=== PATIENT | male | born 1985 | race Caucasian/White ===

== ENCOUNTER 2018-11-30 11:02 | Emergency (ER) | payer OTHER ==
[~2018-11-30] VITALS: Ht 182.9 cm; Wt 74.8 kg
[~2018-11-30 11:02] MED LIST: HYDR-4226 PO; NAPR-1071 PO; PRD20T PO
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
--- OUTSIDE RECORDS SUMMARY | 2018-11-30 11:09 | XMS REPORT ---
Author Author YANG LANDIS Organization [employer] Address Unknown Phone Unavailable Care Team Providers Care Software Test And Validation Engineer Name Role Phone YANG LANDIS CP Unavailable Allergies, Adverse Reactions, Alerts Substance [...] in joint, shoulder region 719.41 Active Assessment Sore throat J02.9 Active Problem Unspecified episodic mood disorder 296.90 Active Problem Anxiety state, unspecified 300.00 Active Problem Unspecified disorder of the teeth and supporting structures 525.9 Active Medications Medication Code System Code Instructions Start Date End Date Status Dosage PredniSONE [facility] [address]-76 20 MG Orally Once a day May 31, 2015 Jun 05, 2015 1 tablet with food or milk Procedures Procedure Coding System Code Date Office Visit, Est Pt., Level 3 CPT-4 43267 May 31, 2015 HETEROPHILE ANTIBODIES CPT-4 79671 May 31, 2015 Vital Signs Date/Time: May 31, 2015 Temperature 97.8 F Weight 159.8 lbs Height 73 in BMI 21.08 Index Blood Pressure Diastolic 85 mmHg Blood Pressure Systolic 140 mmHg Cardiac Monitoring Heart Rate 72 bpm Results Name Result Date Reference Range Unit Abnormality Flag MONO TEST (IN HOUSE) Summary Purpose [employer] Submission
--- OUTSIDE RECORDS SUMMARY | 2018-11-30 11:09 | XMS REPORT ---
Author Author RADHA GARCÍA [employer] Address Unknown Phone Unavailable Care Team Providers Care Concrete Craftsman Name Role Phone RADHA GARCÍA CP Unavailable Allergies, Adverse Reactions, Alerts Substance [...] in joint, shoulder region 719.41 Active Assessment Encounter for dental examination Z01.20 Active Problem Unspecified episodic mood disorder 296.90 Active Problem Anxiety state, unspecified 300.00 Active Problem Unspecified disorder of the teeth and supporting structures 525.9 Active Medications Medication Code System Code Instructions Start Date End Date Status Dosage Erythromycin [facility] [address]-24 not defined Procedures Procedure Coding System Code Date INTRAORL-PERIAPICAL 1 FILM 34125 CPT-4 D0220 Aug 11, 2015 LTD ORAL EVALUATION - PROBLEM FOCUS CPT-4 D0140 Aug 11, 2015 Vital Signs Date/Time: Aug 11, 2015 Blood Pressure Diastolic 91 mmHg Blood Pressure Systolic 129 mmHg Height 73 in Results No Known Results Summary Purpose [employer] Submission
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
--- OUTSIDE RECORDS SUMMARY | 2018-11-30 11:09 | XMS REPORT ---
Author Author EMMETT LARA Organization [employer] Address Unknown Phone Unavailable Care Team Providers Care Closing Machine Operator Name Role Phone EMMETT LARA Unavailable Allergies No Known Allergies Problems Problem Type Condition ICD-9 Code Onset Dates Condition Status Problem Panic [...] Pain in joint, shoulder region 719.41 Active Problem Unspecified episodic mood disorder 296.90 Active Problem Anxiety state, unspecified 300.00 Active Problem Unspecified disorder of the teeth and supporting structures 525.9 Active Medications No Known Medications Results No Known Results Summary Purpose [employer] Submission
--- OUTSIDE RECORDS SUMMARY | 2018-11-30 11:10 | XMS REPORT ---
Author Author BETH BUSCH Organization [employer] Address Unknown Phone Unavailable Care Team Providers Care Kennel Technician Name Role Phone BETH BUSCH CP Unavailable Allergies No Known Allergies Problems Problem Type Condition Code Onset Dates Condition Status Problem Drug abuse F19.10 Active Problem Alcohol abuse F10.10 Active Problem Stomach cramps R10.9 Active Medications Medication Code System Code Instructions Start Date End Date Status Dosage BusPIRone HCl [facility] [address]-20 10 mg Orally 2 times a day(Must have appt for further refills) February 06, 2016 1 tablet Results No Known Results Summary Purpose [employer] Submission
--- OUTSIDE RECORDS SUMMARY | 2018-11-30 11:10 | XMS REPORT | Continuity of Care Document ---
Author Organization Unknown Address Unknown Allergies Active Description Code Type Severity Reaction Onset Reported/Identified Relationship to Patient Clinical Status Yes Flexeril 5 mg tablet Drug Allergy N/A N/A 01/12/2013 Yes Penicillins [id number] Drug Allergy Mild N/A 08/27/2015 Medications There is no data. Problems Date Dx Coded Attending Type Code Diagnosis Diagnosed By 11/13/2012 525.9 TOOTH PAIN 11/13/2012 525.9 TOOTH PAIN 11/13/2012 525.9 TOOTH PAIN 11/13/2012 525.9 TOOTH PAIN 11/13/2012 525.9 TOOTH PAIN 11/13/2012 525.9 TOOTH PAIN 11/13/2012 IRIS TATUM APRN 525.9 TOOTH PAIN 11/13/2012 IRIS TATUM APRN 525.9 TOOTH PAIN 11/13/2012 IRIS TATUM APRN 525.9 TOOTH PAIN 11/13/2012 RADHA KAPADIA DDS 525.9 TOOTH PAIN 11/13/2012 IRIS TATUM APRN 525.9 TOOTH PAIN 11/13/2012 IRIS TATUM APRN 525.9 TOOTH PAIN 11/13/2012 REBECCA WATTS DDS 525.9 TOOTH PAIN 11/13/2012 [employer] SUPERVISOR, EMMETT 525.9 TOOTH PAIN 11/13/2012 [employer] SUPERVISOR, EMMETT 525.9 TOOTH PAIN 11/13/2012 SKYE POSADA APRN 525.9 TOOTH PAIN 11/13/2012 [employer] SUPERVISOR, EMMETT 525.9 TOOTH PAIN 11/13/2012 [employer] SUPERVISOR, EMMETT 525.9 TOOTH PAIN 11/13/2012 [employer] SUPERVISOR, EMMETT 525.9 TOOTH PAIN 11/13/2012 CATHI RUIZ DO 525.9 TOOTH PAIN 11/13/2012 [employer] SUPERVISOR, EMMETT 525.9 TOOTH PAIN 11/13/2012 DIMITRIS SANTANA, BRIE Rodriguez 525.9 TOOTH PAIN 11/13/2012 EMMETT LARA APRN 525.9 TOOTH PAIN 11/13/2012 EMMETT LARA APRN 525.9 TOOTH PAIN 11/13/2012 EMMETT LARA APRN 525.9 TOOTH PAIN 11/13/2012 CATHI RUIZ DO 525.9 TOOTH PAIN 11/17/2012 300.00 anxiety 11/17/2012 724.2 lower back pain 11/17/2012 300.00 anxiety 11/17/2012 724.2 lower back pain 11/17/2012 300.00 anxiety 11/17/2012 724.2 lower back pain 11/17/2012 300.00 anxiety 11/17/2012 724.2 lower back pain 11/17/2012 300.00 anxiety 11/17/2012 724.2 lower back pain 11/17/2012 IRIS TATUM APRN 300.00 anxiety 11/17/2012 IRIS TATUM APRN 724.2 lower back pain 11/17/2012 IRIS TATUM APRN 300.00 anxiety 11/17/2012 IRIS TATUM APRN 724.2 lower back pain 11/17/2012 IRIS TATUM APRN D 300.00 anxiety 11/17/2012 IRIS TATUM APRN 724.2 lower back pain 11/17/2012 KANG RANDLE, RADHA M 300.00 anxiety 11/17/2012 KANG RANDLE, RADHA M 724.2 lower back pain 11/17/2012 IRIS TATUM APRN 300.00 anxiety 11/17/2012 IRIS TATUM APRN 724.2 lower back pain 11/17/2012 IRIS TATUM APRN 300.00 anxiety 11/17/2012 IRIS TATUM APRN 724.2 lower back pain 11/17/2012 STEFANIE RAZIA, REBECCA N 300.00 anxiety 11/17/2012 STEFANIE MARLAS, REBECCA N 724.2 lower back pain 11/17/2012 RYANNE LARA APRNETTE 300.00 anxiety 11/17/2012 EMMETT LARA APRN 724.2 lower back pain 11/17/2012 RYANNE LARA APRNETTE 300.00 anxiety 11/17/2012 [employer] SUPERVISOR, EMMETT 724.2 lower back pain 11/17/2012 POS[employer] SUPERVISOR, SKYE R 300.00 anxiety 11/17/2012 [employer] SUPERVISOR, SKYE R 724.2 lower back pain 11/17/2012 [employer] SUPERVISOR, EMMETT 300.00 anxiety 11/17/2012 [employer] SUPERVISOR, EMMETT 724.2 lower back pain 11/17/2012 [employer] SUPERVISOR, EMMETT 300.00 anxiety 11/17/2012 [employer] SUPERVISOR, EMMETT 724.2 lower back pain 11/17/2012 [employer] SUPERVISOR, EMMETT 300.00 anxiety 11/17/2012 [employer] SUPERVISOR, EMMETT 724.2 lower back pain 11/17/2012 CATHI RUIZ DO K 300.00 anxiety 11/17/2012 CATHI RUIZ DO K 724.2 lower back pain 11/17/2012 [employer] SUPERVISOR, EMMETT 300.00 anxiety 11/17/2012 [employer] SUPERVISOR, EMMETT 724.2 lower back pain 11/17/2012 DIMITRIS SANTANA, BRIE Rodriguez 300.00 anxiety 11/17/2012 BRIE SHANKS PHD 724.2 lower back pain 11/17/2012 [employer] SUPERVISOR, EMMETT 300.00 anxiety 11/17/2012 [employer] SUPERVISOR, EMMETT 724.2 lower back pain 11/17/2012 [employer] SUPERVISOR, EMMETT 300.00 anxiety 11/17/2012 [employer] SUPERVISOR, EMMETT 724.2 lower back pain 11/17/2012 [employer] SUPERVISOR, EMMETT 300.00 anxiety 11/17/2012 [employer] SUPERVISOR, EMMETT 724.2 lower back pain 11/17/2012 EDE RUIZ DOA K 300.00 anxiety 11/17/2012 EDE RUIZ DOA K 724.2 lower back pain 01/12/2013 300.01 AN PANIC DIS W/O AGORA 01/12/2013 V58.69 MEDICATION HIGH RISK 01/12/2013 300.01 AN PANIC DIS W/O AGORA 01/12/2013 V58.69 MEDICATION HIGH RISK 01/12/2013 IRIS TATUM APRN 300.01 AN PANIC DIS W/O AGORA 01/12/2013 IRIS TATUM APRN V58.69 MEDICATION HIGH RISK 01/12/2013 IRIS TATUM APRN 300.01 AN PANIC DIS W/O AGORA 01/12/2013 IRIS TATUM APRN V58.69 MEDICATION HIGH RISK 01/12/2013 IRIS TATUM APRN 300.01 AN PANIC DIS W/O AGORA 01/12/2013 IRIS TATUM APRN V58.69 MEDICATION HIGH RISK 01/12/2013 RADHA KAPADIA DDS 300.01 AN PANIC DIS W/O AGORA 01/12/2013 KANG RANDLE, RADHA Ramos V58.69 MEDICATION HIGH RISK 01/12/2013 IRIS TATUM APRN 300.01 AN PANIC DIS W/O AGORA 01/12/2013 IRIS TATUM APRN V58.69 MEDICATION HIGH RISK 01/12/2013 IRIS TATUM APRN 300.01 AN PANIC DIS W/O AGORA 01/12/2013 IRIS TATUM APRN V58.69 MEDICATION HIGH RISK 01/12/2013 REBECCA WATTS DDS 300.01 AN PANIC DIS W/O AGORA 01/12/2013 REBECCA WATTS DDS V58.69 MEDICATION HIGH RISK 01/12/2013 EMMETT LARA APRN 300.01 AN PANIC DIS W/O AGORA 01/12/2013 EMMETT LARA APRN V58.69 MEDICATION HIGH RISK 01/12/2013 EMMETT LARA APRN 300.01 AN PANIC DIS W/O AGORA 01/12/2013 EMMETT LARA APRN V58.69 MEDICATION HIGH RISK 01/12/2013 MALCOLM POSADA APRNIA R 300.01 AN PANIC DIS W/O AGORA 01/12/2013 SKYE POSADA APRN R V58.69 MEDICATION HIGH RISK 01/12/2013 EMMETT LARA APRN 300.01 AN PANIC DIS W/O AGORA 01/12/2013 EMMETT LARA APRN V58.69 MEDICATION HIGH RISK 01/12/2013 RYANNE LARA APRNETTE 300.01 AN PANIC DIS W/O AGORA 01/12/2013 EMMETT LARA APRN V58.69 MEDICATION HIGH RISK 01/12/2013 [employer] SUPERVISOR, EMMETT 300.01 AN PANIC DIS W/O AGORA 01/12/2013 [employer] SUPERVISOR, EMMETT V58.69 MEDICATION HIGH RISK 01/12/2013 CATHI RUIZ DO K 300.01 AN PANIC DIS W/O AGORA 01/12/2013 CATHI RUIZ DO V58.69 MEDICATION HIGH RISK 01/12/2013 [employer] SUPERVISOR, EMMETT 300.01 AN PANIC DIS W/O AGORA 01/12/2013 [employer] SUPERVISOR, EMMETT V58.69 MEDICATION HIGH RISK 01/12/2013 DIMITRIS SANTANA, BRIE Rodriguez 300.01 AN PANIC DIS W/O AGORA 01/12/2013 DIMITRIS SANTANA, BRIE Rodriguez V58.69 MEDICATION HIGH RISK 01/12/2013 [employer] SUPERVISOR, EMMETT 300.01 AN PANIC DIS W/O AGORA 01/12/2013 [employer] GENERATION SUPERVISOR, EMMETT V58.69 MEDICATION HIGH RISK 01/12/2013 MARCO [employer] GENERATION SUPERVISOR, EMMETT 300.01 AN PANIC DIS W/O AGORA 01/12/2013 MARCO [employer] GENERATION SUPERVISOR, EMMETT V58.69 MEDICATION HIGH RISK 01/12/2013 MAR[employer] GENERATION SUPERVISOR, EMMETT 300.01 AN PANIC DIS W/O AGORA 01/12/2013 [employer] GENERATION SUPERVISOR, EMMETT V58.69 MEDICATION HIGH RISK 01/12/2013 CATHI RUIZ DO K 300.01 AN PANIC DIS W/O AGORA 01/12/2013 CATHI RUIZ DO V58.69 MEDICATION HIGH RISK 09/21/2013 IRIS TATUM APRN 296.90 MOOD DISORDER NOS 09/21/2013 IRIS TATUM APRN 296.90 MOOD DISORDER NOS 09/21/2013 REBECCA WATTS DDS 296.90 MOOD DISORDER NOS 09/21/2013 [employer] SUPERVISOR, EMMETT 296.90 MOOD DISORDER NOS 09/21/2013 [employer] GENERATION SUPERVISOR, EMMETT 296.90 MOOD DISORDER NOS 09/21/2013 SKYE POSADA APRN 296.90 MOOD DISORDER NOS 09/21/2013 [employer]ATION SUPERVISOR, EMMETT 296.90 MOOD DISORDER NOS 09/21/2013 [employer] GENERATION SUPERVISOR, EMMETT 296.90 MOOD DISORDER NOS 09/21/2013 [employer] GENERATION SUPERVISOR, EMMETT 296.90 MOOD DISORDER NOS 09/21/2013 CATHI RUIZ DO 296.90 MOOD DISORDER NOS 09/21/2013 [employer] GENERATION SUPERVISOR, EMMETT 296.90 MOOD DISORDER NOS 09/21/2013 DIMITRIS SANTANA, BRIE Rodriguez 296.90 MOOD DISORDER NOS 09/21/2013 [employer] SUPERVISOR, EMMETT 296.90 MOOD DISORDER NOS 09/21/2013 [employer] GENERATION SUPERVISOR, EMMETT 296.90 MOOD DISORDER NOS 09/21/2013 [employer] GENERATION SUPERVISOR, EMMETT 296.90 MOOD DISORDER NOS 09/21/2013 CATHI RUIZ DO K 296.90 MOOD DISORDER NOS 03/31/2014 POSADA HYDRO GENERATION SUPERVISORSKYE Michelle R 785.0 TACHYCARDIA UNSPECIFIED 03/31/2014 [employer] SUPERVISOR, EMMETT 785.0 TACHYCARDIA UNSPECIFIED 03/31/2014 [employer] GENERATION SUPERVISOR, EMMETT 785.0 TACHYCARDIA UNSPECIFIED 03/31/2014 [employer] GENERATION SUPERVISOR, EMMETT 785.0 TACHYCARDIA UNSPECIFIED 03/31/2014 CATHI RUIZ DO K 785.0 TACHYCARDIA UNSPECIFIED 03/31/2014 [employer] GENERATION SUPERVISOR, EMMETT 785.0 TACHYCARDIA UNSPECIFIED 03/31/2014 DIMITRIS SANTANA, BRIE Rodriguez 785.0 TACHYCARDIA UNSPECIFIED 03/31/2014 [employer] GENERATION SUPERVISOR, EMMETT 785.0 TACHYCARDIA UNSPECIFIED 03/31/2014 MAR[employer] GENERATION SUPERVISOR, EMMETT 785.0 TACHYCARDIA UNSPECIFIED 03/31/2014 MAR[employer] GENERATION SUPERVISOR, EMMETT 785.0 TACHYCARDIA UNSPECIFIED 03/31/2014 CATHI RUIZ DO K 785.0 TACHYCARDIA UNSPECIFIED 05/07/2014 [employer] GENERATION SUPERVISOR, EMMETT 719.41 PAIN- SHOULDER 05/07/2014 CATHI RUIZ DO 719.41 PAIN- SHOULDER 05/07/2014 [employer] GENERATION SUPERVISOR, EMMETT 719.41 PAIN- SHOULDER 05/07/2014 DIMITRIS SANTANA, BRIE Rodriguez 719.41 PAIN- SHOULDER 05/07/2014 [employer] GENERATION SUPERVISOR, EMMETT 719.41 PAIN- SHOULDER 05/07/2014 [employer] GENERATION SUPERVISOR, EMMETT 719.41 PAIN- SHOULDER 05/07/2014 [employer] GENERATION SUPERVISOR, EMMETT 719.41 PAIN- SHOULDER 05/07/2014 CATHI RUIZ DO K 719.41 PAIN- SHOULDER 05/09/2014 CATHI RUIZ DO V15.88 PERSONAL HISTORY OF FALL 05/09/2014 [employer] SUPERVISOR, EMMETT V15.88 PERSONAL HISTORY OF FALL 05/09/2014 DIMITRIS PHD, BRIE Rodriguez V15.88 PERSONAL HISTORY OF FALL 05/09/2014 MARCO EMMETT ADAMES V15.88 PERSONAL HISTORY OF FALL 05/09/2014 MARCO EMMETT ADAMES V15.88 PERSONAL HISTORY OF FALL 05/09/2014 MARCO EMMETT ADAMES V15.88 PERSONAL HISTORY OF FALL 05/09/2014 CATHI RUIZ DO V15.88 PERSONAL HISTORY OF FALL 07/14/2014 EMMETT LARA APRN 300.21 AN PANIC DIS W AGORA 07/14/2014 MARCO ZACARIAS EMMETT 300.21 AN PANIC DIS W AGORA 07/14/2014 MARCO EMMETT ADAMES 300.21 AN PANIC DIS W AGORA 07/14/2014 CATHI RUIZ DO K 300.21 AN PANIC DIS W AGORA 08/09/2014 EMMETT LARA APRN 008.8 GASTROENTERITIS, VIRAL 08/09/2014 EMMETT LARA APRN 008.8 GASTROENTERITIS, VIRAL 08/09/2014 CATHI RUIZ DO 008.8 GASTROENTERITIS, VIRAL 12/02/2014 CATHI RUIZ DO 558.9 OTHER AND UNSPECIFIED NONINFECTIOUS GASTROENTERITIS AND COLITIS 08/27/2015 JOSÉ MIGUEL DIANE APRN Ot S80.02XA CONTUSION OF LEFT KNEE, INITIAL ENCOUNTE 08/27/2015 JOSÉ MIGUEL DIANE APRN Ot W00.0XXA FALL ON SAME LEVEL DUE TO ICE AND SNOW, 08/27/2015 JOSÉ MIGUEL DIANE APRN Ot Y99.8 OTHER EXTERNAL CAUSE STATUS 09/22/2015 SAIDA MEADOWS Ot M25.462 EFFUSION, LEFT KNEE 09/22/2015 SAIDA MEADOWS Ot M79.662 PAIN IN LEFT LOWER LEG Procedures Code Description [place] [address] ROUTINE VENIPUNCTURE 11/17/2012 19206 URINE PCP GC/MS 11/17/2012 09742 URINE OPIATES 11/17/2012 98545 URINE DRUG SCREEN (IN-HOUSE ) 11/17/2012 69442 CBC 11/17/2012 46358 CMP 11/17/2012 3099827 GFR CALC (RESULT ONLY) 11/17/2012 12200 URINE DRUG SCREEN (IN-HOUSE ) 12/15/2012 79417 XRAY LUMBAR SPINE 2 OR 3 VIEWS 12/21/2012 PSYCH ELENI HEDRICK 12/21/2012 99640 URINE DRUG SCREEN (IN-HOUSE ) 01/12/2013 60332 PSYCH DIAG EVAL W/MED SRVCS 02/06/2013 60845 URINE DRUG SCREEN (IN-HOUSE ) 05/27/2013 63858 UA LONG DIP 03/31/2014 42027 URINE DRUG SCREEN (IN-HOUSE ) 03/31/2014 Orthopedi Miki Osorio 05/07/2014 17828 XRAY SHOULDER LEFT COMP 2 VIEWS 05/12/2014 65271 PSYCH DIAGNOSTIC EVALUATION 06/23/2014 53795 PSYTX PT&/FAMILY 45 MINUTES 07/15/2014 J2550 PHENERGAN INJECTION UP TO 50 MG 08/09/2014 Results There is no data. Encounters ACCT No. Visit Date/Time Discharge Status Pt. Type Provider Facility Loc./Unit Complaint [id number] 12/02/2014 16:12:00 12/02/2014 23:59:59 CLS Outpatient CATHI RUIZ DO [id number] 11/08/2014 15:48:00 11/08/2014 23:59:59 CLS Outpatient EMMETT LARA APRN [id number] 07/14/2014 15:40:00 07/14/2014 23:59:59 CLS Outpatient EMMETT LARA APRN [id number] 07/14/2014 15:40:00 07/14/2014 23:59:59 CLS Outpatient EMMETT LARA APRN [id number] 06/23/2014 12:50:00 06/23/2014 23:59:59 CLS Outpatient DIMITRIS SANTANA, BRIE Rodriguez [id number] 05/09/2014 16:37:00 05/09/2014 23:59:59 CLS Outpatient CATHI RUIZ DO [id number] 05/05/2014 15:01:00 05/05/2014 23:59:59 CLS Outpatient EMMETT LARA APRN [id number] 05/05/2014 15:01:00 05/05/2014 23:59:59 CLS Outpatient EMMETT LARA APRN [id number] 03/31/2014 16:07:00 03/31/2014 23:59:59 CLS Outpatient EMMETT LARA APRN [id number] 03/31/2014 16:07:00 03/31/2014 23:59:59 CLS Outpatient EMMETT LARA APRN [id number] 03/31/2014 12:38:00 03/31/2014 23:59:59 CLS Outpatient SKYE POSADA APRN [id number] 02/18/2014 16:04:00 02/18/2014 23:59:59 CLS Outpatient EMMETT LARA APRN [id number] 02/18/2014 16:04:00 02/18/2014 23:59:59 CLS Outpatient EMMETT LARA APRN [id number] 10/08/2013 13:10:00 10/08/2013 23:59:59 CLS Outpatient STEFANIE RAZIA REBECCA N [id number] 09/21/2013 13:25:00 09/21/2013 23:59:59 CLS Outpatient IRIS TATUM APRN [id number] 09/21/2013 13:25:00 09/21/2013 23:59:59 CLS Outpatient IRIS TATUM APRN [id number] 08/03/2013 12:23:00 08/03/2013 23:59:59 CLS Outpatient RADHA KAPADIA DDS [id number] 05/27/2013 14:15:00 05/27/2013 23:59:59 CLS Outpatient IRIS TATUM APRN [id number] 05/27/2013 13:15:00 05/27/2013 23:59:59 CLS Outpatient IRIS TATUM APRN [id number] 03/12/2013 12:17:00 03/12/2013 23:59:59 CLS Outpatient IRIS TATUM APRN [id number] 11/20/2012 13:53:00 11/20/2012 23:59:59 CLS Outpatient [id number] 11/13/2012 14:42:00 11/13/2012 23:59:59 CLS Outpatient [id number] 01/12/2013 14:25:00 Document Registration [id number] 01/12/2013 14:25:00 Document Registration [id number] 12/18/2012 13:00:00 Document Registration [id number] 11/27/2012 09:51:00 Document Registration [id number] 11/12/2018 12:00:00 11/12/2018 23:59:59 CLS Outpatient MELANIE COFFEY CHCMARLEEN PANDYA [id number] 09/22/2015 14:43:00 09/22/2015 23:59:59 CLS Emergency SAIDA MEADOWS [facility] ER LEFT KNEE PAIN [id number] 08/27/2015 16:25:00 08/27/2015 18:01:00 DIS Emergency JOSÉ MIGUEL DIANE APRN [facility] ER LEFT LEG PAIN [id number] 03/27/2015 09:30:00 03/27/2015 23:59:59 CLS Preadmit FAITH RODRIGUEZ [facility] RAD [id number] 11/30/2018 11:05:00 ACT Emergency STEPHANI OSUNA, DAWSON Mccurdy [facility] ER FS MEDICAL CLEARANCE
--- NOTE | 2018-11-30 11:27 | ED General ---
General Chief Complaint: General Problems/Pain Stated Complaint: MEDICAL CLEARANCE Source of Information: Patient, Police Exam Limitations: No Limitations History of Present Illness Date Seen by Provider: Nov 30, 2018 Time Seen by Provider: 11:21 Initial Comments This 33-year-old white male presents with the police for medical clearance for incarceration. The patient denies any significant medical problems other than haven taken antibiotics recently. Patient denies other specific complaint. Allergies and Home Medications Allergies Coded Allergies: Penicillins (Verified Allergy, Mild, 08/27/15) Home Medications Hydrocodone/Acetaminophen 1 Each Tablet, 1 EACH PO Q4H PRN for PAIN Prescribed by: JOSÉ MIGUEL DIANE on 08/27/15 1758 Naproxen 500 Mg Tablet, 500 MG PO BID PRN for PAIN Prescribed by: SAIDA HYMAN on 09/22/15 164 Prednisone 20 Mg Tab, 40 MG PO DAILY Prescribed by: SAIDA HYMAN on 09/22/15 1641 Patient Home Medication List Home Medication List Reviewed: Yes Review of Systems Review of Systems Constitutional: no symptoms reported EENTM: no symptoms reported Respiratory: no symptoms reported Cardiovascular: no symptoms reported Gastrointestinal: no symptoms reported Genitourinary: no symptoms reported Musculoskeletal: no symptoms reported Skin: no symptoms reported Psychiatric/Neurological: No Symptoms Reported Hematologic/Lymphatic: No Symptoms Reported Immunological/Allergic: no symptoms reported Past Danzabj-Cpesuz-Szardh Hx Past Med/Social Hx: Reviewed Nursing Past Med/Soc Hx Immunizations Up To Date Tetanus Booster (TDap): Less than 5yrs Past Medical History Appendectomy Reproductive Disorders: No Family Medical History No Pertinent Family Hx Physical Exam Vital Signs Capillary Refill : Height, Weight, BMI Height: 6'" Weight: 165lbs. oz. 74.254374iu; BMI Method: General Appearance: No Apparent Distress, WD/WN HEENT: Normal ENT Inspection Neck: Normal Inspection Respiratory: Lungs Clear Cardiovascular: Regular Rate, Rhythm Gastrointestinal: Normal Bowel Sounds, Soft Extremity: Normal Range of Motion Neurologic/Psychiatric: Alert, No Motor/Sensory Deficits Progress/Results/Core Measures Suspected Sepsis SIRS Temperature: Pulse: Respiratory Rate: Blood Pressure / Mean: Results/Orders Vital Signs/I&O Capillary Refill : Progress Note : Time: 11:23 Progress Note Patient stated he was ready for his incarceration. He was discharged to the police. Departure Impression Primary Impression: Medical clearance for incarceration Disposition: [address]/LAW ENFORCE Condition: Unchanged Departure-Patient Inst. Decision time for Depature: 11:24 Referrals: [facility] (PCP/Family) Primary Care Physician Add. Discharge Instructions: Patient was discharged into the care of the police after an unremarkable screening exam for incarceration. All discharge instructions reviewed with patient and/or family. Voiced understanding. DAWSON STYLES MD Nov 30, 2018 11:27
[2018-11-30 11:32] VITALS: BP 130/87
== END 2018-11-30 11:32 ==
LOC: EDUNIT# 11:02 → ER FS 11:05
DX: Z02.89 Encounter for other administrative examinations (principal); Z88.0 Allergy status to penicillin; Z79.52 Long term (current) use of systemic steroids
CPT/HCPCS: 99283

== ENCOUNTER 2019-01-10 16:26 | Emergency (ER) | payer SELFPAY ==
[~2019-01-10] VITALS: Ht 182.9 cm; Wt 74.8 kg
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
--- OUTSIDE RECORDS SUMMARY | 2019-01-10 16:35 | XMS REPORT | Continuity of Care Document ---
Author Organization Unknown Address Unknown Allergies Active Description Code Type Severity Reaction Onset Reported/Identified Relationship to Patient Clinical Status Yes Flexeril 5 mg tablet Drug Allergy N/A N/A 01/12/2013 Yes Penicillins [id number] Drug Allergy Mild N/A 08/27/2015 Medications There [...] WATTS DDS 525.9 TOOTH PAIN 11/13/2012 MARCO SEWER PIPE SORTER, EMMETT 525.9 TOOTH PAIN 11/13/2012 MARCO SEWER PIPE SORTER, EMMETT 525.9 TOOTH PAIN 11/13/2012 SKYE PSOADA APRN 525.9 TOOTH PAIN 11/13/2012 MARCO SEWER PIPE SORTER, EMMETT 525.9 TOOTH PAIN 11/13/2012 MARCO SEWER PIPE SORTER, EMMETT 525.9 TOOTH PAIN 11/13/2012 MARCO SEWER PIPE SORTER, EMMETT 525.9 TOOTH PAIN 11/13/2012 CATHI RUIZ DO 525.9 TOOTH PAIN 11/13/2012 MARCO SEWER PIPE SORTER, EMMETT 525.9 TOOTH PAIN 11/13/2012 DIMITRIS SANTANA, [...] RYANNE LARA APRNETTE 300.00 anxiety 11/17/2012 MARCO SEWER PIPE SORTER, EMMETT 724.2 lower back pain 11/17/2012 POSADA SEWER PIPE SORTER, SKYE R 300.00 anxiety 11/17/2012 POSADA SEWER PIPE SORTER, SKYE R 724.2 lower back pain 11/17/2012 MARCO SEWER PIPE SORTER, EMMETT 300.00 anxiety 11/17/2012 MARCO SEWER PIPE SORTER, EMMETT 724.2 lower back pain 11/17/2012 MARCO SEWER PIPE SORTER, EMMETT 300.00 anxiety 11/17/2012 MARCO SEWER PIPE SORTER, EMMETT 724.2 lower back pain 11/17/2012 MARCO SEWER PIPE SORTER, EMMETT 300.00 anxiety 11/17/2012 MARCO SEWER PIPE SORTER, EMMETT 724.2 lower back pain 11/17/2012 CATHI RUIZ DO K 300.00 anxiety 11/17/2012 CATHI RUIZ DO K 724.2 lower back pain 11/17/2012 MARCO SEWER PIPE SORTER, EMMETT 300.00 anxiety 11/17/2012 MARCO SEWER PIPE SORTER, EMMETT 724.2 lower back pain 11/17/2012 DIMITRIS SANTANA, BRIE Rodriguez 300.00 anxiety 11/17/2012 BRIE SHANKS PHD 724.2 lower back pain 11/17/2012 MARCO SEWER PIPE SORTER, EMMETT 300.00 anxiety 11/17/2012 MARCO SEWER PIPE SORTER, EMMETT 724.2 lower back pain 11/17/2012 MARCO SEWER PIPE SORTER, EMMETT 300.00 anxiety 11/17/2012 MARCO SEWER PIPE SORTER, EMMETT 724.2 lower back pain 11/17/2012 MARCO SEWER PIPE SORTER, EMMETT 300.00 anxiety 11/17/2012 MARCO SEWER PIPE SORTER, EMMETT 724.2 lower back pain 11/17/2012 EDE [...] APRN V58.69 MEDICATION HIGH RISK 01/12/2013 IRIS TTAUM APRN 300.01 AN PANIC DIS W/O AGORA [...] 300.01 AN PANIC DIS W/O AGORA 01/12/2013 IRSI TATUM APRN V58.69 MEDICATION HIGH RISK 01/12/2013 [...] APRN V58.69 MEDICATION HIGH RISK 01/12/2013 MARCO SEWER PIPE SORTER, EMMETT 300.01 AN PANIC DIS W/O AGORA 01/12/2013 MARCO SEWER PIPE SORTER, EMMETT V58.69 MEDICATION HIGH RISK 01/12/2013 CATHI RUIZ DO K 300.01 AN PANIC DIS W/O AGORA 01/12/2013 CATHI RUIZ DO V58.69 MEDICATION HIGH RISK 01/12/2013 MARCO SEWER PIPE SORTER, EMMETT 300.01 AN PANIC DIS W/O AGORA 01/12/2013 MARCO SEWER PIPE SORTER, EMMETT V58.69 MEDICATION HIGH RISK 01/12/2013 DIMITRIS SANTANA, BRIE Rodriguez 300.01 AN PANIC DIS W/O AGORA 01/12/2013 DIMITRIS SANTANA, BRIE Rodriguez V58.69 MEDICATION HIGH RISK 01/12/2013 MARCO SEWER PIPE SORTER, EMMETT 300.01 AN PANIC DIS W/O AGORA 01/12/2013 MARCO SEWER PIPE SORTER, EMMETT V58.69 MEDICATION HIGH RISK 01/12/2013 MARCO SEWER PIPE SORTER, EMMETT 300.01 AN PANIC DIS W/O AGORA 01/12/2013 MARCO SEWER PIPE SORTER, EMMETT V58.69 MEDICATION HIGH RISK 01/12/2013 MARCO SEWER PIPE SORTER, EMMETT 300.01 AN PANIC DIS W/O AGORA 01/12/2013 MARCO SEWER PIPE SORTER, EMMETT V58.69 MEDICATION HIGH RISK 01/12/2013 CATHI RUIZ DO K 300.01 AN PANIC DIS W/O AGORA 01/12/2013 CATHI RUIZ DO V58.69 MEDICATION HIGH RISK 09/21/2013 IRIS TATUM APRN 296.90 MOOD DISORDER NOS 09/21/2013 IRIS TATUM APRN 296.90 MOOD DISORDER NOS 09/21/2013 REBECCA WATTS DDS 296.90 MOOD DISORDER NOS 09/21/2013 MARCO SEWER PIPE SORTER, EMMETT 296.90 MOOD DISORDER NOS 09/21/2013 MARCO SEWER PIPE SORTER, EMMETT 296.90 MOOD DISORDER NOS 09/21/2013 SKYE POSADA APRN 296.90 MOOD DISORDER NOS 09/21/2013 MARCO SEWER PIPE SORTER, EMMETT 296.90 MOOD DISORDER NOS 09/21/2013 MARCO SEWER PIPE SORTER, EMMETT 296.90 MOOD DISORDER NOS 09/21/2013 MARCO SEWER PIPE SORTER, EMMETT 296.90 MOOD DISORDER NOS 09/21/2013 CATHI RUIZ DO 296.90 MOOD DISORDER NOS 09/21/2013 MARCO SEWER PIPE SORTER, EMMETT 296.90 MOOD DISORDER NOS 09/21/2013 DIMITRIS SANTANA, BRIE Rodriguez 296.90 MOOD DISORDER NOS 09/21/2013 MARCO SEWER PIPE SORTER, EMMETT 296.90 MOOD DISORDER NOS 09/21/2013 MARCO SEWER PIPE SORTER, EMMETT 296.90 MOOD DISORDER NOS 09/21/2013 MARCO SEWER PIPE SORTER, EMMETT 296.90 MOOD DISORDER NOS 09/21/2013 CATHI RUIZ DO K 296.90 MOOD DISORDER NOS 03/31/2014 POSADA SEWER PIPE SORTERSKYE Michelle R 785.0 TACHYCARDIA UNSPECIFIED 03/31/2014 MARCO SEWER PIPE SORTER, EMMETT 785.0 TACHYCARDIA UNSPECIFIED 03/31/2014 MARCO SEWER PIPE SORTER, EMMETT 785.0 TACHYCARDIA UNSPECIFIED 03/31/2014 MARCO SEWER PIPE SORTER, EMMETT 785.0 TACHYCARDIA UNSPECIFIED 03/31/2014 CATHI RUIZ DO K 785.0 TACHYCARDIA UNSPECIFIED 03/31/2014 MARCO SEWER PIPE SORTER, EMMETT 785.0 TACHYCARDIA UNSPECIFIED 03/31/2014 DIMITRIS SANTANA, BRIE Rodriguez 785.0 TACHYCARDIA UNSPECIFIED 03/31/2014 MARCO SEWER PIPE SORTER, EMMETT 785.0 TACHYCARDIA UNSPECIFIED 03/31/2014 MARCO SEWER PIPE SORTER, EMMETT 785.0 TACHYCARDIA UNSPECIFIED 03/31/2014 MARCO SEWER PIPE SORTER, EMMETT 785.0 TACHYCARDIA UNSPECIFIED 03/31/2014 CATHI RUIZ DO K 785.0 TACHYCARDIA UNSPECIFIED 05/07/2014 MARCO SEWER PIPE SORTER, EMMETT 719.41 PAIN- SHOULDER 05/07/2014 CATHI RUIZ DO 719.41 PAIN- SHOULDER 05/07/2014 MARCO SEWER PIPE SORTER, EMMETT 719.41 PAIN- SHOULDER 05/07/2014 DIMITRIS SANTANA, BRIE Rodriguez 719.41 PAIN- SHOULDER 05/07/2014 MARCO SEWER PIPE SORTER, EMMETT 719.41 PAIN- SHOULDER 05/07/2014 MARCO SEWER PIPE SORTER, EMMETT 719.41 PAIN- SHOULDER 05/07/2014 MARCO SEWER PIPE SORTER, EMMETT 719.41 PAIN- SHOULDER 05/07/2014 CATHI RUIZ DO K 719.41 PAIN- SHOULDER 05/09/2014 CATHI RUIZ DO V15.88 PERSONAL HISTORY OF FALL 05/09/2014 MARCO SEWER PIPE SORTER, EMMETT V15.88 PERSONAL HISTORY OF FALL 05/09/2014 DIMITRIS PHD, BRIE Rodriguez V15.88 PERSONAL HISTORY OF FALL 05/09/2014 MARCO SEWER PIPE SORTEREMMETT Michelle V15.88 PERSONAL HISTORY OF FALL 05/09/2014 MARCO SEWER PIPE SORTER, EMMETT V15.88 PERSONAL HISTORY OF FALL 05/09/2014 MARCO SEWER PIPE SORTERRYANNE MichelleEMMETT V15.88 PERSONAL HISTORY OF FALL 05/09/2014 RUIZ CATHI PAULSON K V15.88 PERSONAL HISTORY OF FALL 07/14/2014 MARCO ZACARIAS EMMETT 300.21 AN PANIC DIS W AGORA 07/14/2014 MARCO SEWER PIPE SORTER, EMMETT 300.21 AN PANIC DIS W AGORA 07/14/2014 MARCO SEWER PIPE SORTER, EMMETT 300.21 AN PANIC DIS W AGORA 07/14/2014 CATHI RUIZ DO K 300.21 AN PANIC DIS W AGORA 08/09/2014 RYANNE LARA APRNETTE 008.8 GASTROENTERITIS, VIRAL 08/09/2014 EMMETT LARA APRN 008.8 GASTROENTERITIS, VIRAL 08/09/2014 CATHI RUIZ DO 008.8 GASTROENTERITIS, VIRAL 12/02/2014 CATHI RUIZ DO K 558.9 OTHER AND UNSPECIFIED NONINFECTIOUS GASTROENTERITIS AND [...] Ot M79.662 PAIN IN LEFT LOWER LEG 12/02/2018 DAWSON STYLES MD Ot Z02.89 ENCOUNTER FOR OTHER ADMINISTRATIVE EXAMI 12/02/2018 DAWSON STYLES MD Ot 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 12/02/2018 DAWSON STYLES MD Ot Z88.0 ALLERGY STATUS TO PENICILLIN Procedures Code Description [place] [address] ROUTINE VENIPUNCTURE 11/17/2012 46446 URINE PCP GC/MS 11/17/2012 18906 URINE OPIATES 11/17/2012 63359 URINE DRUG SCREEN (IN-HOUSE) 11/17/2012 62655 CBC 11/17/2012 97275 CMP 11/17/2012 6744142 GFR CALC (RESULT ONLY) 11/17/2012 30227 URINE DRUG SCREEN (IN-HOUSE) 12/15/2012 82010 XRAY LUMBAR SPINE 2 OR 3 VIEWS 12/21/2012 PSYCH ELENI HEDRICK 12/21/2012 10069 URINE DRUG SCREEN (IN-HOUSE) 01/12/2013 26831 PSYCH DIAG EVAL W/MED SRVCS 02/06/2013 44193 URINE DRUG SCREEN (IN-HOUSE) 05/27/2013 95263 UA LONG DIP 03/31/2014 54558 URINE DRUG SCREEN (IN-HOUSE) 03/31/2014 Orthopedi Miki Osorio 05/07/2014 80904 XRAY SHOULDER LEFT COMP 2 VIEWS 05/12/2014 99917 PSYCH DIAGNOSTIC EVALUATION 06/23/2014 83763 PSYTX PT&/FAMILY 45 MINUTES 07/15/2014 J2550 PHENERGAN INJECTION UP TO 50 MG 08/09/2014 Results Test Result Range PDM - 09 PANEL (PROFILE 1) - 11/12/18 10:49 Prescribed Drug 1 Xanax(TM) NRG Creatinine 61.8 mg/dL > or=20.0 pH 5.82 4.5 - 9.0 Oxidant NEGATIVE mcg/mL <200 Amphetamines NEGATIVE ng/mL <500 medMATCH Amphetamines CONSISTENT NRG Benzodiazepines NEGATIVE ng/mL <100 medMATCH Benzodiazepines INCONSISTENT NRG Marijuana Metabolite NEGATIVE ng/mL <20 medMATCH Marijuana Metab CONSISTENT NRG Cocaine Metabolite NEGATIVE ng/mL <150 medMATCH Cocaine Metab CONSISTENT NRG Opiates NEGATIVE ng/mL <100 medMATCH Opiates CONSISTENT NRG Oxycodone NEGATIVE ng/mL <100 medMATCH Oxycodone CONSISTENT NRG COMMENT NRG Barbiturates NEGATIVE ng/mL <300 medMATCH Barbiturates CONSISTENT NRG Methadone Metabolite NEGATIVE ng/mL <100 medMATCH Methadone Metab CONSISTENT NRG Phencyclidine NEGATIVE ng/mL <25 medMATCH Phencyclidine CONSISTENT NRG Encounters ACCT No. Visit Date/Time Discharge Status Pt. Type Provider Facility Loc./Unit Complaint [id number] 12/02/2014 16:12:00 12/02/2014 23:59:59 CLS Outpatient CATHI RUIZ DO [id number] 11/08/2014 15:48:00 11/08/2014 23:59:59 CLS Outpatient MARCO SEWER PIPE SORTER, EMMETT [id number] 07/14/2014 15:40:00 07/14/2014 23:59:59 CLS Outpatient MARCO SEWER PIPE SORTER, EMMETT [id number] 07/14/2014 15:40:00 07/14/2014 23:59:59 CLS Outpatient MARCOEMMETT COLINDRES APRN [id number] 06/23/2014 12:50:00 06/23/2014 23:59:59 CLS Outpatient BRIE SAHNKS PHD [id number] 05/09/2014 16:37:00 05/09/2014 23:59:59 CLS Outpatient CATHI RUIZ DO [id number] 05/05/2014 15:01:00 05/05/2014 23:59:59 CLS Outpatient MARCO SEWER PIPE SORTEREMMETT Michelle [id number] 05/05/2014 15:01:00 05/05/2014 23:59:59 CLS Outpatient MARCOEMMETT COLINDRES APRN [id number] 03/31/2014 16:07:00 03/31/2014 23:59:59 CLS Outpatient MARCO SEWER PIPE SORTEREMMETT Michelle [id number] 03/31/2014 16:07:00 03/31/2014 23:59:59 CLS Outpatient MARCOEMMETT COLINDRES APRN [id number] 03/31/2014 12:38:00 03/31/2014 23:59:59 CLS Outpatient SKYE POSADA APRN [id number] 02/18/2014 16:04:00 02/18/2014 23:59:59 CLS Outpatient EMMETT LARA APRN [id number] 02/18/2014 16:04:00 02/18/2014 23:59:59 CLS Outpatient MARCO EMMETT ADAMES [id number] 10/08/2013 13:10:00 10/08/2013 23:59:59 CLS Outpatient REBECCA WATTS DDS [id number] 09/21/2013 13:25:00 09/21/2013 23:59:59 CLS Outpatient IRIS TATUM APRN [id number] 09/21/2013 13:25:00 09/21/2013 23:59:59 CLS Outpatient IRIS TATUM APRN [id number] 08/03/2013 12:23:00 08/03/2013 23:59:59 CLS Outpatient KANG RADHA RANDLE [id number] 05/27/2013 14:15:00 05/27/2013 23:59:59 CLS Outpatient IRIS TATUM APRN [id number] 05/27/2013 13:15:00 05/27/2013 23:59:59 CLS Outpatient IRIS TATUM APRN [id number] 03/12/2013 12:17:00 03/12/2013 23:59:59 CLS Outpatient TURNERIRIS JUAN APRN [id number] 11/20/2012 13:53:00 11/20/2012 23:59:59 CLS Outpatient [id number] 11/13/2012 14:42:00 11/13/2012 23:59:59 CLS Outpatient [id number] 01/12/2013 14:25:00 Document Registration [id number] 01/12/2013 14:25:00 Document Registration [id number] 12/18/2012 13:00:00 Document Registration [id number] 11/27/2012 09:51:00 Document Registration [id number] 01/06/2019 14:00:00 01/06/2019 23:59:59 CLS Outpatient MELANIE COFFEY Carmen [facility] [id number] 11/12/2018 12:00:00 Document Registration [id number] 11/30/2018 11:05:00 11/30/2018 11:32:00 DIS Outpatient DAWSON STYLES MD [facility] ER FS MEDICAL CLEARANCE [id number] 09/22/2015 14:43:00 09/22/2015 23:59:59 CLS Emergency SAIDA MEADOWS [facility] ER LEFT KNEE PAIN [id number] 08/27/2015 16:25:00 08/27/2015 18:01:00 DIS Emergency JOSÉ MIGUEL DIANE APRN [facility] ER LEFT LEG PAIN [id number] 03/27/2015 09:30:00 03/27/2015 23:59:59 CLS Preadmit FAITH RODRIGUEZ STAFF DEVELOPER [facility] RAD [id number] 01/10/2019 16:28:00 ACT Emergency GAIL GARCIA DO [facility] ER FS RT LEG PAIN - BROKE IT 6 DAYS AGO
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
[2019-01-10] MEDS ORDERED: KETOROLAC 60 MG/2 ML VIAL IM ONE (17:00)
[2019-01-10] MEDS ORDERED: IBUP-1780 PO (17:06)
--- NOTE | 2019-01-10 17:14 | Diagnostic Imaging Report ---
INDICATION: Pain. EXAMINATION: Three views of the right ankle were obtained. FINDINGS: The alignment is normal. The plafonds and talar dome are intact. The ankle mortise is symmetric. There is no fracture or dislocation. Soft tissues are unremarkable. IMPRESSION: No focal abnormality in the right ankle. Dictated by: Dictated on workstation # [id number]
--- NOTE | 2019-01-10 17:15 | Diagnostic Imaging Report ---
INDICATION: Pain. EXAMINATION: Four views of the right tibia and fibula were obtained. FINDINGS: The osseous alignment is normal. There is no acute fracture or dislocation. The soft tissues are unremarkable. IMPRESSION: No acute abnormality. Dictated by: Dictated on workstation # [id number]
[2019-01-10 17:30] VITALS: BP 117/72
== END 2019-01-10 17:35 | disposition home or self-care (01) ==
LOC: EDUNIT# 16:26 → ER FS 16:28
DX: S80.11XA Contusion of right lower leg, initial encounter (principal); Z88.0 Allergy status to penicillin; Z88.5 Allergy status to narcotic agent; Z88.8 Allergy status to other drugs, medicaments and biological substances; Z90.49 Acquired absence of other specified parts of digestive tract; W20.8XXA Other cause of strike by thrown, projected or falling object, initial encounter
CPT/HCPCS: 73590; 73610

== ENCOUNTER 2019-02-04 13:32 | Emergency (ER) | payer OTHER ==
[~2019-02-04] VITALS: Ht 182.9 cm; Wt 74.8 kg
[~2019-02-04 13:32] MED LIST changes: +IBUP-1780 PO
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
[2019-02-04] MEDS ORDERED: LACTATED RINGERS 1,000 ML IV ONE (13:43)
[2019-02-04] MEDS ORDERED: LORazepam INJ 2 MG/ML (ATIVAN) VIAL IVP ONE (13:45)
--- NOTE | 2019-02-04 13:51 | ED General ---
General Chief Complaint: General Problems/Pain Stated Complaint: MEDICAL CLEARANCE Source of Information: Patient, Police Exam Limitations: No Limitations History of Present Illness Date Seen by Provider: Feb 04, 2019 Time Seen by Provider: 13:38 Initial Comments The patient presents to ER in police custody with chief complaint that he's about going to nursing home and he is out of his medications. He typically takes propranolol 20 mg daily for blood pressure and in the last month he has started taking Klonopin half milligram twice a day. He says these are prescribed by Dr. Mota. Previously he was taking Xanax 120 mg a month and was seen Dr. DURHAM. He says he feels short of breath but no chest pain nausea fevers chills or cough. He does not smoke and only occasionally drinks alcohol but denies recreational drug use now or ever. He says he had to walk 7 blocks today to the courthouse to take care of a legal issue and then was taken into custody at that time and that is why he thinks he feels short of breath and has a fast heart rate. He said the walking was over 10 minutes ago. He says he feels very dehydrated as well. He does not have a history of SVT, dysrhythmia, A. fib, etc. He has no other significant medical history. No allergies to medicines. He says his last dose of propranolol was yesterday. No history of epilepsy. Patient also endorses a history of congenital hip problems and says he has fragments of bone just looking around and it makes it very painful for him to walk. He would like something for the pain. Allergies and Home Medications Allergies Coded Allergies: Penicillins (Verified Allergy, Mild, 08/27/15) citalopram (Unverified Adverse Reaction, Unknown, 01/10/19) tramadol (Unverified Adverse Reaction, Unknown, 01/10/19) Home Medications Ibuprofen 800 Mg Tablet, 800 MG PO Q8H PRN for PAIN Prescribed by: GAIL GARCIA on 01/10/19 1706 Propranolol HCl 20 Mg Tablet, 20 MG PO DAILY Prescribed by: MARIANNA GIBSON on 02/04/19 1420 Patient Home Medication List Home Medication List Reviewed: Yes Review of Systems Review of Systems Constitutional: No chills, No diaphoresis EENTM: No ear discharge, No ear pain Respiratory: No cough; short of breath; No wheezing Cardiovascular: see HPI; No chest pain, No edema, No palpitations Gastrointestinal: No abdominal pain, No constipation, No diarrhea, No nausea Genitourinary: No discharge, No dysuria Musculoskeletal: No back pain, No joint pain Past Suhbdfa-Emnqjz-Sbcbjn Hx Patient Social History Alcohol Use: Occasionally Uses Recreational Drug Use: No Smoking Status: Never a Smoker Type Used: Smokeless Tobacco 2nd Hand Smoke Exposure: No Recent Hopitalizations: No Immunizations Up To Date Tetanus Booster (TDap): Less than 5yrs Seasonal Allergies Seasonal Allergies: No Past Medical History Surgeries: Yes Appendectomy Respiratory: No Cardiac: Yes Hypertension Neurological: No Reproductive Disorders: No Genitourinary: No Gastrointestinal: No Musculoskeletal: No Endocrine: No HEENT: No Cancer: No Psychosocial: No Integumentary: No Blood Disorders: No Family Medical History No Pertinent Family Hx Physical Exam Vital Signs Vital Signs - First Documented 02/04/19 13:35 Temp 98.0 Pulse 118 Resp 22 B/P (MAP) 136/89 (105) Pulse Ox 100 O2 Delivery Room Air Capillary Refill : Height, Weight, BMI Height: 6'0" Weight: 165lbs. oz. 74.504394qz; BMI Method:Stated General Appearance: Anxious, Thin Eyes: Bilateral Eye Normal Inspection, Bilateral Eye PERRL, Bilateral Eye EOMI HEENT: PERRL/EOMI; No Pharynx Normal (oral mucosa is dry), No Moist Mucous Membranes Neck: Full Range of Motion, Normal Inspection Respiratory: Lungs Clear, Normal Breath Sounds, No Accessory Muscle Use, No Res piratory Distress Cardiovascular: Regular Rate, Rhythm, Normal Peripheral Pulses Gastrointestinal: Normal Bowel Sounds, Non Tender, Soft Extremity: Normal Capillary Refill, Normal Inspection, Non Tender, No Pedal Edema Neurologic/Psychiatric: Alert, Oriented x3, No Motor/Sensory Deficits, filler shredder machine II- XII Norm as Tested Skin: Normal Color, Warm/Dry, Other (some sweat on his brow but otherwise his skin is dry) Progress/Results/Core Measures Suspected Sepsis SIRS Temperature: Pulse: Respiratory Rate: Laboratory Tests 02/04/19 13:50: White Blood Count 10.0 Blood Pressure / Mean: Laboratory Tests 02/04/19 13:50: Creatinine 0.83, Platelet Count 273, Total Bilirubin 1.8H Results/Orders Lab Results Laboratory Tests Test 02/04/19 13:47 02/04/19 13:50 Range/Units Urine Color DARK YELLOW Urine Clarity CLEAR Urine pH 6.0 5-9 Urine Specific [place] 1.025 H 1.016-1.022 Urine Protein TRACE NEGATIVE Urine Glucose (UA) NEGATIVE NEGATIVE Urine Ketones 3+ H NEGATIVE Urine Nitrite NEGATIVE NEGATIVE Urine Bilirubin 2+ H NEGATIVE Urine Urobilinogen 2.0 NORMAL MG/DL Urine Leukocyte Esterase NEGATIVE NEGATIVE Urine RBC (Auto) NEGATIVE NEGATIVE Urine RBC NONE /HPF Urine WBC RARE /HPF Urine Squamous Epithelial Cells RARE /HPF Urine Crystals NONE /LPF Urine Bacteria NEGATIVE /HPF Urine Casts NONE /LPF Urine Mucus LARGE H /LPF Urine Culture Indicated NO Urine Opiates Screen NEGATIVE NEGATIVE Urine Oxycodone Screen NEGATIVE NEGATIVE Urine Methadone Screen NEGATIVE NEGATIVE Urine Propoxyphene Screen NEGATIVE NEGATIVE Urine Barbiturates Screen NEGATIVE NEGATIVE Ur Tricyclic Antidepressants Screen NEGATIVE NEGATIVE Urine Phencyclidine Screen NEGATIVE NEGATIVE Urine Amphetamines Screen POSITIVE H NEGATIVE Urine Methamphetamines Screen POSITIVE H NEGATIVE Urine Benzodiazepines Screen NEGATIVE NEGATIVE Urine Cocaine Screen POSITIVE H NEGATIVE Urine Cannabinoids Screen NEGATIVE NEGATIVE White Blood Count 10.0 4.3-11.0 10^3/uL Red Blood Count 4.65 4.35-5.85 10^6/uL Hemoglobin 14.5 13.3-17.7 G/DL Hematocrit 43 40-54 % Mean Corpuscular Volume 93 80-99 FL Mean Corpuscular Hemoglobin 31 25-34 PG Mean Corpuscular Hemoglobin Concent 33 32-36 G/DL Red Cell Distribution Width 13.5 10.0-14.5 % Platelet Count 273 130-400 10^3/uL Mean Platelet Volume 9.2 7.4-10.4 FL Neutrophils (%) (Auto) 74 42-75 % Lymphocytes (%) (Auto) 15 12-44 % Monocytes (%) (Auto) 10 0-12 % Eosinophils (%) (Auto) 0 0-10 % Basophils (%) (Auto) 0 0-10 % Neutrophils # (Auto) 7.4 1.8-7.8 X 10^3 Lymphocytes # (Auto) 1.5 1.0-4.0 X 10^3 Monocytes # (Auto) 1.0 0.0-1.0 X 10^3 Eosinophils # (Auto) 0.0 0.0-0.3 10^3/uL Basophils # (Auto) 0.0 0.0-0.1 10^3/uL Sodium Level 139 135-145 MMOL/L Potassium Level 3.5 L 3.6-5.0 MMOL/L Chloride Level 95 L 98-107 MMOL/L Carbon Dioxide Level 21 21-32 MMOL/L Anion Gap 23 H 5-14 MMOL/L Blood Urea Nitrogen 11 7-18 MG/DL Creatinine 0.83 0.60-1.30 MG/DL Estimat Glomerular Filtration Rate > 60 BUN/Creatinine Ratio 13 Glucose Level 93 70-105 MG/DL Calcium Level 9.6 8.5-10.1 MG/DL Corrected Calcium 8.5-10.1 MG/DL Magnesium Level 1.9 1.8-2.4 MG/DL Total Bilirubin 1.8 H 0.1-1.0 MG/DL Aspartate Amino Transf (AST/SGOT) 125 H 5-34 U/L Alanine Aminotransferase (ALT/SGPT) 147 H 0-55 U/L Alkaline Phosphatase 54 40-136 U/L Total Protein 8.8 H 6.4-8.2 GM/DL Albumin 5.2 H 3.2-4.5 GM/DL My Orders Orders - MARIANNA GIBSON Cbc With Automated Diff (02/04/19 13:43) Comprehensive Metabolic Panel (02/04/19 13:43) Hs C Reactive Protein (02/04/19 13:43) Drug Screen Stat (Urine) (02/04/19 13:43) Magnesium (02/04/19 13:43) Ua Culture If Indicated (02/04/19 13:43) Ed Iv/Invasive Line Start (02/04/19 13:43) Lactated Ringers (Lr 1000 Ml Iv Solution (02/04/19 13:43) Ekg Tracing (02/04/19 13:43) Lorazepam Injection (Ativan Injection) (02/04/19 13:45) Medications Given in ED Current Medications Medications Dose Ordered Sig/Emma Route Start Time Stop Time Status Last Admin Dose Admin Lactated Ringer's 1,000 ml @ 0 mls/hr Q0M ONCE IV 02/04/19 13:43 02/04/19 13:46 DC 02/04/19 14:05 0 MLS/HR Lorazepam 0.5 mg ONCE ONCE IVP 02/04/19 13:45 02/04/19 13:46 DC 02/04/19 14:05 0.5 MG Vital Signs/I&O 02/04/19 13:35 Temp 98.0 Pulse 118 Resp 22 B/P (MAP) 136/89 (105) Pulse Ox 100 O2 Delivery Room Air Capillary Refill : Progress Note #1: Time: 13:49 Progress Note We will obtain some basic labs to rule out anemia, dehydration or infection, a urine drug screen looking for stimulants and an EKG to rule out a dysrhythmia. Plan to give him a liter of LR and a half milligram of Ativan to prevent the risk of a seizure from benzo withdrawal period if he is on meth or cocaine then the Ativan would be helpful to slow his heart down and calm him down as he does appear rather anxious. Progress Note #2: Time: 14:14 Progress Note Review of the [place] and [employer] software for [place] demonstrates the patient has been getting opiates although not recently. He has no opiates in his urine drug screen either. He has however been getting a lot of benzodiazepines looks like most recently from [facility]. His most recent prescription January 06 was for 28 tablets of clonazepam which is only half as much as he claims to be taking. Curiously there is no benzodiazepines in his urine drug screen. I suspect diversion might be the source of his lack of benzos or he could just be out if he took them doubled up in which case he would've been out a couple weeks ago. His claim that he took clonazepam yesterday is unlikely true. The Ativan will help with his anxiety and agitation that are probably enhanced by his methamphetamine and cocaine use. Prior to leaving giving him the fluids or Ativan however he had already began to slow his heart rate down to around 100 spontaneously. EKG only demonstrated sinus tachycardia could be consistent with the drug use and possibly dehydration. After he is done with his liter of fluids he would be clear to go into law enforcement custody. He is demonstrating no signs of serious adverse effects to the stimulant use. Progress Note #3: Time: 14:52 Progress Note Propranolol 20 mg and ibuprofen 800 mg. Were not hold off adding benzos as he's been off them for at least 4 days per his own admission now. ECG Initial ECG Impression Date: Feb 04, 2019 Initial ECG Impression Time: 13:52 Initial ECG Rate: 109 Initial ECG Rhythm: S.Tach Initial ECG Intervals: Normal Initial ECG Impression: Normal, Nonspecific Changes Initial ECG Comparisson: No Previous ECG Available Comment Sinus tachycardia without significant ST-T changes. Departure Impression Primary Impression: Methamphetamine abuse Additional Impressions: Cocaine abuse Mild dehydration Chronic left hip pain Anxiety Disposition: 01 HOME, SELF-CARE Condition: Stable Departure-Patient Inst. Decision time for Depature: 14:53 Referrals: [facility] (PCP/Family) Primary Care Physician Patient Instructions: Dehydration, Adult (DC), Drug Abuse Treatment Add. Discharge Instructions: You should look into outpatient or inpatient treatment for drug use if you want help getting off. Drink plenty of fluids, sports drinks or acceptable. Avoid caffeine. Discontinue the use of illicit drugs and look into participation with local Narcotics Anonymous groups. You may continue to use the propranolol 20 mg daily until you can follow-up with your primary care provider. Ibuprofen 800 mg every 8 hours as needed for pain. Propranolol 20 mg by mouth daily. Cleared medically for incarceration under police custody. All discharge instructions reviewed with patient and/or family. Voiced understanding. Scripts Ibuprofen (Ibuprofen) 800 Mg Tablet 800 MG PO Q8H PRN for PAIN for 90 Days, #30 TAB 0 Refills Prov: MARIANNA GIBSON 02/04/19 Propranolol HCl (Propranolol HCl) 20 Mg Tablet 20 MG PO DAILY for 30 Days, #30 TAB 0 Refills Prov: MARIANNA GIBSON 02/04/19 MARIANNA GIBSON Feb 04, 2019 13:51
[2019-02-04 14:03] LABS: BASOPHILS % (AUTO) 0 % (0-10); EOSINOPHILS % (AUTO) 0 % (0-10); HEMATOCRIT 43 % (40-54); HEMOGLOBIN 14.5 G/DL (13.3-17.7); LYMPHOCYTES % (AUTO) 15 % (12-44); MEAN CORPUSCULAR HEMOGLOBIN 31 PG (25-34); MEAN CORPUSCULAR HGB CONC 33 G/DL (32-36); MEAN CORPUSCULAR VOLUME 93 FL (80-99); MEAN PLATELET VOLUME 9.2 FL (7.4-10.4); MONOCYTES % (AUTO) 10 % (0-12); NEUTROPHILS % (AUTO) 74 % (42-75); PLATELET COUNT 273 10^3/uL (130-400); RED CELL DISTRIBUTION WIDTH 13.5 % (10.0-14.5)
[2019-02-04 14:04] LABS: LYMPHOCYTES # (AUTO) 1.5 X 10^3 (1.0-4.0); NEUTROPHILS # (AUTO) 7.4 X 10^3 (1.8-7.8)
[2019-02-04 14:07] LABS: AMPHETAMINE SCREEN, URINE POSITIVE (NEGATIVE); BARBITURATE SCREEN URINE NEGATIVE (NEGATIVE); BENZODIAZEPINES SCREEN URINE NEGATIVE (NEGATIVE); CANNABINOID SCREEN, URINE NEGATIVE (NEGATIVE); COCAINE SCREEN URINE POSITIVE (NEGATIVE); METHADONE STAT NEGATIVE (NEGATIVE); METHAMPHETAMINE SCREEN URINE S POSITIVE (NEGATIVE); OPIATE SCREEN URINE NEGATIVE (NEGATIVE); OXYCODONE STAT NEGATIVE (NEGATIVE); PROPOXYPHENE STAT NEGATIVE (NEGATIVE); TRICYCLIC ANTIDEPRESSANTS SCRE NEGATIVE (NEGATIVE)
[2019-02-04 14:11] LABS: BILIRUBIN,URINE 2+ (NEGATIVE); CLARITY,URINE CLEAR; COLOR,URINE DARK YELLOW; GLUCOSE, URINE (UA) NEGATIVE (NEGATIVE); KETONES,URINE 3+ (NEGATIVE); NITRITE,URINE NEGATIVE (NEGATIVE); PROTEIN,URINE TRACE (NEGATIVE)
[2019-02-04 14:12] LABS: BACTERIA,URINE NEGATIVE /HPF; LEUKOCYTE ESTERASE ,URINE NEGATIVE (NEGATIVE); SQUAMOUS EPITHELIAL CELL,UR RARE /HPF; WBC,URINE RARE /HPF
[2019-02-04] MEDS ORDERED: PROP20TA5 PO (14:20)
[2019-02-04 14:22] LABS: BILIRUBIN,TOTAL 1.8 MG/DL (0.1-1.0); BUN/CREATININE RATIO 13; CALCIUM 9.6 MG/DL (8.5-10.1); CARBON DIOXIDE 21 MMOL/L (21-32); CHLORIDE 95 MMOL/L (98-107); CREATININE SERUM 0.83 MG/DL (0.60-1.30); GFR ESTIMATED > 60; GLUCOSE 93 MG/DL (70-105); MAGNESIUM 1.9 MG/DL (1.8-2.4); POTASSIUM 3.5 MMOL/L (3.6-5.0); SODIUM 139 MMOL/L (135-145)
[2019-02-04 14:23] LABS: ALANINE AMINOTRANSFERASE 147 U/L (0-55); ALBUMIN 5.2 GM/DL (3.2-4.5); ALKALINE PHOSPHATASE 54 U/L (40-136); TOTAL PROTEIN 8.8 GM/DL (6.4-8.2)
[2019-02-04] MEDS ORDERED: IBUP-1780 PO (14:54)
[2019-02-04] MEDS ORDERED: PROPRANOLOL 20 MG (INDERAL) TABLET PO ONE (15:00)
[2019-02-04] MEDS ORDERED: IBUPROFEN 800 MG (MOTRIN) TAB PO ONE (15:00)
[2019-02-04 15:15] VITALS: BP 138/87
[2019-02-04] MEDS ORDERED: meTOproloL SUCCINATE 50 MG (TOPROL XL) TAB PO SCH (15:15)
== END 2019-02-04 15:15 | disposition home or self-care (01) ==
LOC: EDUNIT# 13:32 → ER FS 13:33
DX: Z02.89 Encounter for other administrative examinations (principal); F15.10 Other stimulant abuse, uncomplicated; F14.10 Cocaine abuse, uncomplicated; E86.0 Dehydration; M25.552 Pain in left hip; G89.29 Other chronic pain; F41.9 Anxiety disorder, unspecified; I10 Essential (primary) hypertension; F17.200 Nicotine dependence, unspecified, uncomplicated; Z90.49 Acquired absence of other specified parts of digestive tract; Z88.0 Allergy status to penicillin; Z88.6 Allergy status to analgesic agent; Z88.8 Allergy status to other drugs, medicaments and biological substances
CPT/HCPCS: 36415; 80053; 80306; 81000; 83735; 85025; 93005; 96361; 96374

== ENCOUNTER 2019-02-09 20:34 | Emergency (ER) | payer SELFPAY ==
[~2019-02-09] VITALS: Ht 182.9 cm; Wt 72.6 kg
[~2019-02-09 20:34] MED LIST changes: +PROP20TA5 PO
--- NOTE | 2019-02-09 20:48 | ED EENT ---
History of Present Illness General Chief Complaint: Dental Problems/Pain Stated Complaint: LT SIDE FACE PAIN AND SWELLING Source: patient, RN notes reviewed Exam Limitations: no limitations History of Present Illness Date Seen by Provider: Feb 09, 2019 Time Seen by Provider: 20:46 Allergies and Home Medications Allergies Coded Allergies: Penicillins (Verified Allergy, Mild, 08/27/15) citalopram (Unverified Adverse Reaction, Unknown, 01/10/19) tramadol (Unverified Adverse Reaction, Unknown, 01/10/19) Home Medications Ibuprofen 800 Mg Tablet, 800 MG PO Q8H PRN for PAIN Prescribed by: GAIL GARCIA on 01/10/19 1706 Ibuprofen 800 Mg Tablet, 800 MG PO Q8H PRN for PAIN Prescribed by: MARIANNA GIBSON on 02/04/19 1454 Propranolol HCl 20 Mg Tablet, 20 MG PO DAILY Prescribed by: MARIANNA GIBSON on 02/04/19 1420 Past Deklgjp-Betrkj-Vmuycu Hx Patient Social History Type Used: Smokeless Tobacco 2nd Hand Smoke Exposure: No Recent Foreign Travel: No Contact w/Someone Who Travel: No Recent Hopitalizations: No Immunizations Up To Date Tetanus Booster (TDap): Less than 5yrs Seasonal Allergies Seasonal Allergies: No Past Medical History Surgeries: Yes Appendectomy Respiratory: No Cardiac: Yes Hypertension Neurological: No Reproductive Disorders: No Genitourinary: No Gastrointestinal: No Musculoskeletal: No Endocrine: No HEENT: No Cancer: No Psychosocial: Yes Anxiety Integumentary: No Blood Disorders: No Family Medical History No Pertinent Family Hx Physical Exam Height, Weight, BMI Height: 6'0" Weight: 165lbs. oz. 74.258065ai; BMI Method:Stated Departure Impression Primary Impression: Pain due to dental caries Disposition: HOME, SELF-CARE Condition: Stable Departure-Patient Inst. Decision time for Depature: 20:50 Referrals: PRICE FITZGERALD MD (PCP) Primary Care Physician [facility] (Family) Primary Care Physician Patient Instructions: Dental Pain (DC) Add. Discharge Instructions: All discharge instructions reviewed with patient and/or family. Voiced understanding. NEED TO SEE YOUR DENTIST TORI FOR DEFINITIVE EVALUATION AND CARE OF YOUR PROBLEM. RECOMMEND 600 mg OF IBUPROFEN EVERY 6 HOURS NEEDED FOR PAIN/SWELLING. Scripts Acetaminophen with Codeine (Tylenol with Codeine #3 Tablet) 1 Each Tablet 1-2 EACH PO Q6H PRN for BREAK THRU DENTAL PAIN for 5 Days, #20 TAB 0 Refills Prov: BETH SOLANO DO 02/09/19 Clindamycin HCl (Clindamycin HCl) 150 Mg Capsule 300 MG PO QID for 10 Days, #80 CAP 0 Refills Prov: BETH SOLANO DO 02/09/19 BETH SOLANO DO Feb 09, 2019 20:48
[2019-02-09] MEDS ORDERED: ACET-789 PO (20:54)
[2019-02-09] MEDS ORDERED: CLIN150C17 PO (20:54)
[2019-02-09] MEDS ORDERED: CLINDAMYCIN 150 MG (CLEOCIN) CAP PO ONE (21:00)
[2019-02-09] MEDS ORDERED: HYDROcodone/APAP 10 MG/325 MG (LORTAB) TAB PO ONE (21:00)
[2019-02-09] MEDS ORDERED: predniSONE 20 MG TAB PO ONE (21:00)
[2019-02-09 21:04] VITALS: BP 140/89
== END 2019-02-09 21:05 | disposition home or self-care (01) ==
LOC: EDUNIT# 20:34 → ER FS 20:36
DX: K02.9 Dental caries, unspecified (principal); I10 Essential (primary) hypertension; F41.9 Anxiety disorder, unspecified; Z88.0 Allergy status to penicillin; Z88.6 Allergy status to analgesic agent; Z88.8 Allergy status to other drugs, medicaments and biological substances; Z90.49 Acquired absence of other specified parts of digestive tract
CPT/HCPCS: 99283

== ENCOUNTER 2019-08-15 11:00 | Emergency (ER) | payer SELFPAY ==
[~2019-08-15] VITALS: Ht 182.8 cm; Wt 73.9 kg
[~2019-08-15 11:00] MED LIST changes: +ACET-789 PO; +CLIN150C17 PO
--- NOTE | 2019-08-15 11:16 | ED EENT ---
History of Present Illness General Stated Complaint: SWOLLEN JAW Source: patient Exam Limitations: no limitations History of Present Illness Date Seen by Provider: Aug 15, 2019 Time Seen by Provider: 11:11 Initial Comments 34-year-old male presents with dental pain. Patient states that started last night. He thinks that a "filling fell out" patient has had multiple visits for dental pain to the ER in the past. He has no nausea vomiting. As maybe has some mild swelling on the lower left jaw. Patient reports she's tried ibuprofen with no relief. Allergies and Home Medications Allergies Coded Allergies: Penicillins (Verified Allergy, Mild, 08/27/15) citalopram (Unverified Adverse Reaction, Unknown, 01/10/19) tramadol (Unverified Adverse Reaction, Unknown, 01/10/19) Home Medications Acetaminophen with Codeine 1 Each Tablet, 1-2 EACH PO Q6H PRN for BREAK THRU DENTAL PAIN Prescribed by: BETH SOLANO on 02/09/192053 Clindamycin HCl 150 Mg Capsule, 300 MG PO QID Prescribed by: BETH SOLANO on 02/09/192053 Clindamycin HCl 300 Mg Capsule, 300 MG PO Q8H Prescribed by: HUANG FRANCO on 08/15/19 1129 Ibuprofen 800 Mg Tablet, 800 MG PO Q8H PRN for PAIN Prescribed by: GAIL GARCIA on 01/10/19 1706 Ibuprofen 800 Mg Tablet, 800 MG PO Q8H PRN for PAIN Prescribed by: MARIANNA GIBSON on 02/04/19 1454 Morphine Sulfate 15 Mg Tablet, 15 MG PO Q8H PRN for PAIN-SEVERE (8-10) Prescribed by: HUANG FRANCO on 08/15/19 1125 Propranolol HCl 20 Mg Tablet, 20 MG PO DAILY Prescribed by: MARIANNA GIBSON on 02/04/19 1420 Patient Home Medication List Home Medication List Reviewed: Yes Review of Systems Review of Systems Constitutional: No chills, No fever Ears: See HPI Nose: see HPI Mouth: see HPI Throat: no symptoms reported Cardiovascular: no symptoms reported Musculoskeletal: no symptoms reported Past Dptekin-Qddxkb-Uhjwbu Hx Past Med/Social Hx: Reviewed Nursing Past Med/Soc Hx Patient Social History Type Used: Smokeless Tobacco 2nd Hand Smoke Exposure: No Recent Hopitalizations: No Immunizations Up To Date Tetanus Booster (TDap): Less than 5yrs Seasonal Allergies Seasonal Allergies: No Past Medical History Surgeries: Yes Appendectomy Respiratory: No Cardiac: Yes Hypertension Neurological: No Reproductive Disorders: No Genitourinary: No Gastrointestinal: No Musculoskeletal: No Endocrine: No HEENT: No Cancer: No Psychosocial: Yes Anxiety Integumentary: No Blood Disorders: No Family Medical History No Pertinent Family Hx Physical Exam Vital Signs Vital Signs - First Documented 08/15/19 11:08 Temp 36.8 Pulse 100 Resp 16 B/P (MAP) 137/78 (97) Pulse Ox 98 O2 Delivery Room Air Height, Weight, BMI Height: 6'0" Weight: 160lbs. oz. 72.869964jz; BMI Method:Stated General Appearance: WD/WN, no apparent distress Mouth/Throat: other (diffuse cavities. Patient with a fractured tooth on left lower side with a severe cavity. He has have a missing tooth. There are no signs of loss of his dental fillings.) Cardiovascular: normal peripheral pulses, regular rate, rhythm Respiratory: chest non-tender, lungs clear Neurologic/Psychiatric: normal mood/affect, oriented x 3 Skin: normal color Progress/Results/Core Measures Results/Orders My Orders Orders - HUANG FRANCO DO Hydrocodone/Apap 5/325 Tablet (Lortab 5 (08/15/19 11:30) Medications Given in ED Current Medications Medications Dose Ordered Sig/Emma Route Start Time Stop Time Status Last Admin Dose Admin Acetaminophen/ Hydrocodone Bitart 1 tab ONCE ONCE PO 08/15/19 11:30 08/15/19 11:31 DC 08/15/19 11:26 1 TAB Vital Signs/I&O 08/15/19 11:08 Temp 36.8 Pulse 100 Resp 16 B/P (MAP) 137/78 (97) Pulse Ox 98 O2 Delivery Room Air Departure Impression Primary Impression: Dental caries extending into dentine Additional Impressions: Dental caries Fractured tooth Qualified Codes: S02.5XXA - Fracture of tooth (traumatic), initial encounter for closed fracture Disposition: 01 HOME, SELF-CARE Condition: Stable Departure-Patient Inst. Referrals: PRICE FITZGERALD MD (PCP) Primary Care Physician [facility] (Family) Primary Care Physician Patient Instructions: Fractured Tooth (DC), Tooth Decay, Adult (DC), Dental Pain (DC) Add. Discharge Instructions: Emergency department focuses on treating and ruling out life-threatening diseases. Whenever possible, a diagnosis is given. However, most patients are given an impression based on their history, physical exam, and workup during your brief time in the ER. Information about probable diagnosis and other educational material has been provided. Please take the time to read and understand this information. It is very important that you follow up with a physician as discussed during the visit today. Failure to adhere to your follow-up instructions may lead to severe disability, injury, or so please make sure to keep your appointments or obtain one as requested. Please keep in mind the emergency department is not designed to your primary care or "family doctor" and nonurgent issues are best evaluated by an outpatient physician Scripts Clindamycin HCl (Clindamycin HCl) 300 Mg Capsule 300 MG PO Q8H for 10 Days, #30 CAP . Prov: HUANG FRANCO DO 08/15/19 Morphine Sulfate (Morphine Sulfate IR Tablet) 15 Mg Tablet 15 MG PO Q8H PRN for PAIN-SEVERE (8-10), #5 TAB Prov: HUANG FRANCO DO 08/15/19 HUANG FRANCO DO Aug 15, 2019 11:16
[2019-08-15] MEDS ORDERED: MORP15TA PO (11:25)
[2019-08-15] MEDS ORDERED: CLIN300C11 PO ×2 (11:29→11:39)
[2019-08-15] MEDS ORDERED: HYDROcodone/APAP 5 MG/325 MG (LORTAB) TAB PO ONE (11:30)
[2019-08-15 11:31] VITALS: BP 137/78
== END 2019-08-15 11:31 | disposition home or self-care (01) ==
LOC: EDUNIT# 11:00 → ER FS 11:01
DX: S02.5XXA Fracture of tooth (traumatic), initial encounter for closed fracture (principal); K02.9 Dental caries, unspecified; I10 Essential (primary) hypertension; F41.9 Anxiety disorder, unspecified; Z88.0 Allergy status to penicillin; Z88.5 Allergy status to narcotic agent; Z88.8 Allergy status to other drugs, medicaments and biological substances; Z90.49 Acquired absence of other specified parts of digestive tract; X58.XXXA Exposure to other specified factors, initial encounter
CPT/HCPCS: 99283

== ENCOUNTER 2019-09-18 20:01 | Emergency (ER) | payer SELFPAY ==
[~2019-09-18] VITALS: Ht 182.9 cm; Wt 76.6 kg
[~2019-09-18 20:01] MED LIST changes: +CLIN300C11 PO; +MORP15TA PO
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
[2019-09-18] MEDS ORDERED: L.E.T. SYRINGE 5 ML TOP ONE (20:30)
[2019-09-18 20:49] VITALS: BP 136/72
== END 2019-09-18 20:49 ==
LOC: EDUNIT# 20:01 → ER FS 20:04
DX: S51.812A Laceration without foreign body of left forearm, initial encounter (principal); I10 Essential (primary) hypertension; Z90.49 Acquired absence of other specified parts of digestive tract; Z88.0 Allergy status to penicillin; Z88.5 Allergy status to narcotic agent; Z88.8 Allergy status to other drugs, medicaments and biological substances; X99.1XXA Assault by knife, initial encounter; Y92.039 Unspecified place in apartment as the place of occurrence of the external cause
CPT/HCPCS: 99282

== ENCOUNTER 2019-12-01 10:56 | Emergency (ER) | payer SELFPAY ==
[~2019-12-01] VITALS: Ht 182.8 cm; Wt 66.1 kg
[2019-12-01 11:11] VITALS: BP 109/66
[2019-12-01] MEDS ORDERED: IBUP-1780 PO (11:18)
[2019-12-01] MEDS ORDERED: DOXY100T2 PO (11:18)
--- NOTE | 2019-12-01 11:18 | ED Lower Extremity ---
General Chief Complaint: Lower Extremity Stated Complaint: LT LEG INJ Source: patient Exam Limitations: no limitations History of Present Illness Date Seen by Provider: Dec 01, 2019 Time Seen by Provider: 11:16 Initial Comments 2 days ago bumped his leg on a blunt object, denies other injury. Yesterday some pain and today leg is red and more painful. Otherwise, not valeriy forthcoming w details of HPI. Pain in feet and leg. Allergies and Home Medications Allergies Coded Allergies: Penicillins (Verified Allergy, Mild, 08/27/15) citalopram (Unverified Adverse Reaction, Unknown, 01/10/19) tramadol (Unverified Adverse Reaction, Unknown, 01/10/19) Home Medications Acetaminophen with Codeine 1 Each Tablet, 1-2 EACH PO Q6H PRN for BREAK THRU DENTAL PAIN Prescribed by: BETH SOLANO on 02/09/192053 Clindamycin HCl 150 Mg Capsule, 300 MG PO QID Prescribed by: BETH SOLANO on 02/09/192053 Clindamycin HCl 300 Mg Capsule, 300 MG PO Q8H . Prescribed by: HUANG FRANCO on 08/15/19 1139 Doxycycline Hyclate 100 Mg Tablet, 100 MG PO BID Prescribed by: ELENI CROWELL on 12/01/19 1118 Ibuprofen 800 Mg Tablet, 800 MG PO Q8H PRN for PAIN Prescribed by: GAIL GARCIA on 01/10/19 1706 Ibuprofen 800 Mg Tablet, 800 MG PO Q8H PRN for PAIN Prescribed by: MARIANNA GIBSON on 02/04/19 1454 Ibuprofen 800 Mg Tablet, 800 MG PO Q8H PRN for PAIN Prescribed by: ELENI CROWELL on 12/01/19 1118 Morphine Sulfate 15 Mg Tablet, 15 MG PO Q8H PRN for PAIN-SEVERE (8-10) Prescribed by: HUANG FRANCO on 08/15/19 1125 Propranolol HCl 20 Mg Tablet, 20 MG PO DAILY Prescribed by: MARIANNA GIBSON on 02/04/19 1420 Patient Home Medication List Home Medication List Reviewed: Yes Review of Systems Constitutional: see HPI; No chills, No fever, No malaise, No weakness Respiratory: no symptoms reported Cardiovascular: no symptoms reported Musculoskeletal: see HPI, other (left leg pain and redness) Skin: see HPI, change in color; No pruritus, No rash Past Uspzcgy-Cpxhve-Bjwmln Hx Past Med/Social Hx: Reviewed Nursing Past Med/Soc Hx Patient Social History Alcohol Use: Denies Use Recreational Drug Use: No Smoking Status: Current Everyday Smoker Type Used: Smokeless Tobacco 2nd Hand Smoke Exposure: No Recent Foreign Travel: No Contact w/Someone Who Travel: No Recent Hopitalizations: No Physical Abuse: No Sexual Abuse: No Mistreated: No Fear: No Immunizations Up To Date Tetanus Booster (TDap): Less than 5yrs Seasonal Allergies Seasonal Allergies: No Past Medical History Surgeries: Yes Appendectomy Respiratory: No Cardiac: Yes Hypertension Neurological: No Reproductive Disorders: No Genitourinary: No Gastrointestinal: No Musculoskeletal: No Endocrine: No HEENT: No Cancer: No Psychosocial: Yes Anxiety Integumentary: No Blood Disorders: No Family Medical History No Pertinent Family Hx Physical Exam Vital Signs Capillary Refill : Height, Weight, BMI Height: 6'0" Weight: 160lbs. oz. 72.601419mt; 22.00 BMI Method:Stated General Appearance: WD/WN, no apparent distress Legs: left leg normal range of motion, left leg no evidence of injury, left leg pain, left leg soft tissue tenderness, left leg swelling Ankles: left ankle non-tender, left ankle normal inspection, left ankle normal range of motion, left ankle no evidence of injury Feet: left foot non-tender, left foot normal inspection, left foot normal range of motion, left foot no evidence of injury Neurologic/Tendon: normal sensation, normal motor functions, normal tendon functions, responds to pain Neurologic/Psychiatric: no motor/sensory deficits, alert Skin: other (erythematous wheal left ant leg and dorsum of foot. NO open wound or abscess. Large area (marked w skin marker)) Progress/Results/Core Measures Results/Orders My Orders Orders - ROVENSTINE,ELENI L DO Ibuprofen Tablet (Motrin Tablet) (12/01/19 11:30) Departure Impression Primary Impression: Cellulitis Qualified Codes: L03.116 - Cellulitis of left lower limb Disposition: 01 HOME, SELF-CARE Condition: Stable Departure-Patient Inst. Decision time for Depature: 11:17 Referrals: PRICE FITZGERALD MD (PCP/Family) Primary Care Physician Patient Instructions: Cellulitis (Skin Infection), Adult (DC) Scripts Ibuprofen (Ibuprofen) 800 Mg Tablet 800 MG PO Q8H PRN for PAIN, #30 TAB 0 Refills Prov: ELENI CROWELL DO 12/01/19 Doxycycline Hyclate (Doxycycline Hyclate) 100 Mg Tablet 100 MG PO BID, #20 TAB 0 Refills Prov: ELENI CROWELL DO 12/01/19 ELENI CROWELL DO Dec 01, 2019 11:18
[2019-12-01] MEDS ORDERED: IBUPROFEN 800 MG (MOTRIN) TAB PO ONE (11:30)
--- OUTSIDE RECORDS SUMMARY | 2019-12-01 11:52 | XMS REPORT ---
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 phone) 02-24-2019 - 02-24-2019 02-11-2019 Telephone encounter Generalized anxiety MELANIE REA RS (no [employer] MA[facility] - disorder phone) (no phone) 02-11-2019 - 02-11-2019 Medical Equipment The data below is from unstructured sourcesNo Medical Equipment Information availableNo Medical Equipment Information availableNo Medical Equipment Information available Payers Normalized Payer Value Unknown no information [id number]) Evaluation note Note Type Note Facility Evaluation No Assessments Information Available A [employer] note [facility] ([id number]) History general Narrative - Reported Note Type Note Facility History general Narrative - Reported Type Medical panic disorder History Medical anxiety History Medical mood disorder History Medical Back trouble History Medical Denies any hx of heart prob gael or seizure History Medical congenital hip dysplasia History Surgical appendectomy 2010 History Hospitaliz Appendectomy 2010 ation History Hospitaliz Denies any past psychiatric hospitalization ation History [facility] ([id number]) Summary Purpose eClinicalWorks SubmissioneClinicalWorks SubmissioneClinicalWorks SubmissioneClinicalWorks Submission Advance Directives Directive Response Recor ded Date/Time Advance Directives No 3:10pm Resuscitation Status Full Code 09/22/15 3:10pm Directive Response Recor ded Date/Time Advance Directives No 5:01pm Resuscitation Status Full Code 08/27/15 5:01pm Directive Response Recor ded Date/Time Advance Directives No 4:32pm Health Care Power of Restaurant Assistant Manager No 01/10/19 4:32pm Organ Donor No 01/10/19 4:32pm Resuscitation Status Full Code 01/10/19 4:32pm Advance Directive Response Recorded Date/Time Advance Directives No Anneber 2018 11:08am Health Care Power of Restaurant Assistant Manager No August 15, 2019 11:08am Organ Donor No August 15, 2019 11:08am Resuscitation Status Full Code August 15, 2019 11:08am Advance Directive Response Recorded Date/Time Advance Directives No Ari [facility] 2019 8:12pm Health Care Power of Restaurant Assistant Manager No September 18, 2019 8:12pm Organ Donor No August [id number] 8:12pm Resuscitation Status Full Code September 18, 2019 8:12pm Discharge Instructions No hospital discharge instructions.No hospital discharge instructions.No hospital discharge instructions.No hospital discharge instruction information available. Chief Complaint and Reason for Visit Chief Complaint Lower Extremity Reason for Visit Contusion of right tibia Chief Complaint Dental Problems/Pain Reason for Visit [id number] Chief Complaint Laceration Reason for Visit [id number] Additional Source Comments This clinical document has been generated using [employer] software that has been certified by the Office of the National Coordinator for Health Information Technology (ONC 15.99.04.3023.Diam.[id number]) and the National Committee for Copy Messenger (NCQA, as an eMeasure certified technology). FOR RECORDS PERTAINING TO PATIENTS WHO ARE OR HAVE BEEN ENROLLED IN A CHEMICAL D EPENDENCY/SUBSTANCE ABUSE PROGRAM, SOME INFORMATION MAY BE OMITTED. This clinica l summary was aggregated from multiple sources. Caution should be exercised in using it in the provision of clinical care. This summary normalizes information from multiple sources, and as a consequence, information in this document may ma terially change the coding, format and clinical context of patient data. In nii tion, data may be omitted in some cases. CLINICAL DECISIONS SHOULD BE BASED ON T HE PRIMARY CLINICAL RECORDS. [employer] provides no warranty or guara ntee of the accuracy or completeness of information in this document.The followi ng information is based on time limited clinical information UNRECOGNIZED CONTENT PROVIDED BELOW FOR UNRECOGNIZED SECTION MEDICAL (GENERAL) HISTORY Type Description Date Medical History panic disorder Medical History anxiety Medical History mood disorder Medical History Prednisone Medical History Back trouble Medical History Denies any hx of hea rt problem or seizure Surgical History appendectomy 2010 Hospitalization History Appendectomy 2010 Hospitalization History Denies any p ast psychiatric hospitalization Type Description Date Medical History panic disorder Medical History anxiety Medical History mood disorder Medical History Back trouble Medical History Denies any hx of hea rt problem or seizure Medical History congenital hip dysplasia Surgical History appendectomy 2010 Hospitalization History Appendectomy 2010 Hospitalization History Denies any p ast psychiatric hospitalization UNRECOGNIZED CONTENT PROVIDED BELOW FOR UNRECOGNIZED SECTION REASON FOR VISIT [id number]
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
--- OUTSIDE RECORDS SUMMARY | 2019-12-01 12:03 | XMS REPORT | Continuity of Care Document ---
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 16:25:00 016 18:01:00 DIS Emergency JOSÉ MIGUEL DIANE APRN [facility] ER LEFT LEG PAIN [id number] 03/27/2015 09:30:00 23:59:59 CLS Preadmit 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
== END 2019-12-01 11:31 | disposition home or self-care (01) ==
LOC: EDUNIT# 10:56 → ER FS 11:00
DX: L03.116 Cellulitis of left lower limb (principal); I10 Essential (primary) hypertension; F41.9 Anxiety disorder, unspecified; F17.290 Nicotine dependence, other tobacco product, uncomplicated; Z88.0 Allergy status to penicillin; Z88.5 Allergy status to narcotic agent; Z88.8 Allergy status to other drugs, medicaments and biological substances
CPT/HCPCS: 99283

== ENCOUNTER 2019-12-05 08:14 | Emergency (ER) | payer SELFPAY ==
[~2019-12-05 08:14] MED LIST changes: +DOXY100T2 PO
[2019-12-05 08:25] VITALS: BP 130/73
[2019-12-05] MEDS ORDERED: DICL75TA2 PO (08:36)
--- NOTE | 2019-12-05 08:36 | ED EENT ---
History of Present Illness General Chief Complaint: Dental Problems/Pain Stated Complaint: JAW PAIN/SWELLING Source: patient, RN notes reviewed History of Present Illness Date Seen by Provider: Dec 05, 2019 Time Seen by Provider: 08:25 Initial Comments This patient is a 34-year-old male that presents to the emergency department with complaint of dental pain. Patient was seen in the emergency department 3-4 days ago for the same and was started on doxycycline. Patient also was given Bactrim by another physician. Patient states he is taking both medications. Patient also describing some tenderness to the anterior portion of his left lower leg. Requests pain medication. Patient states he still has little bit of puffiness and swelling to the lower left jaw from his dental abscess. Patient has not seen a dentist. We'll do medical evaluation treatment is needed. Timing/Duration: gradual Location: mouth, dental Prearrival Treatment: prescription meds Modifying Factors: Worse With Activity, Worse With Albuterol Inhaler, Worse With Albuterol Nebulizer, Worse With Antibiotics, Worse With Coughing, Worse With Lying Down, Worse With Oxygen, Worse With Rest, Worse With Other Associated Symptoms: No denies symptoms, No change in hearing, No cough, No moe oling, No ear drainage; facial pain/swelling; No fever, No malaise, No nasal congestion/drainage, No poor fluid intake, No poor solids intake, No sinus infection, No sore throat, No tooth pain, No voice change, No other Allergies and Home Medications Allergies Coded Allergies: Penicillins (Verified Allergy, Mild, 08/27/15) citalopram (Unverified Adverse Reaction, Unknown, 01/10/19) tramadol (Unverified Adverse Reaction, Unknown, 01/10/19) Home Medications Acetaminophen with Codeine 1 Each Tablet, 1-2 EACH PO Q6H PRN for BREAK THRU DENTAL PAIN Prescribed by: BETH SOLANO on 02/09/192053 Clindamycin HCl 150 Mg Capsule, 300 MG PO QID Prescribed by: BETH SOLANO on 02/09/192053 Clindamycin HCl 300 Mg Capsule, 300 MG PO Q8H . Prescribed by: HUANG FRANCO on 08/15/19 1139 Doxycycline Hyclate 100 Mg Tablet, 100 MG PO BID Prescribed by: ELENI CROWELL on 12/01/19 1118 Ibuprofen 800 Mg Tablet, 800 MG PO Q8H PRN for PAIN Prescribed by: GAIL GARCIA on 01/10/19 1706 Ibuprofen 800 Mg Tablet, 800 MG PO Q8H PRN for PAIN Prescribed by: MARIANNA GIBSON on 02/04/19 1454 Ibuprofen 800 Mg Tablet, 800 MG PO Q8H PRN for PAIN Prescribed by: ELENI CROWELL on 12/01/19 1118 Morphine Sulfate 15 Mg Tablet, 15 MG PO Q8H PRN for PAIN-SEVERE (8-10) Prescribed by: HUANG FRANCO on 08/15/19 1125 Propranolol HCl 20 Mg Tablet, 20 MG PO DAILY Prescribed by: MARIANNA GIBSON on 02/04/19 1420 Patient Home Medication List Home Medication List Reviewed: Yes Review of Systems Review of Systems Constitutional: see HPI Eyes: See HPI Ears: Denies No Symptoms Reported, Denies See HPI, Denies Dizziness, Denies Pain, Denies Tinnitus, Denies Bloody Discharge, Denies Clear Discharge, Denies Purulent Discharge, Denies Serosanguinous Discharge, Denies Previous Injury, Denies Other Mouth: see HPI, pain, swelling, other (poor dental hygiene. Obvious lower abscess left side.) Throat: denies no symptoms reported, denies see HPI, denies pain, denies swelling, denies discharge, denies neck stiffness, denies hoarse, denies aphonia, denies muffled, denies painful swallowing, denies difficulty with fluids, denies previous injury, denies other Respiratory: No no symptoms reported, No see HPI, No cough, No dyspnea on exertion, No hemoptysis, No orthopnea, No phlegm, No short of breath, No stridor, No wheezing, No other Cardiovascular: No no symptoms reported, No see HPI, No chest pain, No edema, No Hx of Intervention, No palpitations, No syncope, No vascular heart diseas, No other Gastrointestinal: No RUQ, No LUQ, No RLQ, No LLQ, No no symptoms reported, No see HPI, No abdominal pain, No constipation, No diarrhea, No dysphagia, No hematemesis, No heartburn, No jaundice, No loss of appetite, No melena, No n ausea, No vomiting, No other Musculoskeletal: No no symptoms reported, No see HPI, No back pain, No gout, No joint pain, No joint swelling, No muscle pain, No muscle stiffness, No muscle cramps, No muscle twitching, No muscle weakness, No neck pain, No other All Other Systems Reviewed Negative Unless Noted: Yes Past Mrpodzz-Dgvgud-Bxjijx Hx Patient Social History Alcohol Use: Denies Use Recreational Drug Use: Yes Type Used: Smokeless Tobacco 2nd Hand Smoke Exposure: No Recent Hopitalizations: No Physical Abuse: No Sexual Abuse: No Mistreated: No Fear: No Immunizations Up To Date Tetanus Booster (TDap): Less than 5yrs Seasonal Allergies Seasonal Allergies: No Past Medical History Surgeries: Yes Appendectomy Respiratory: No Cardiac: Yes Hypertension Neurological: No Reproductive Disorders: No Genitourinary: No Gastrointestinal: No Musculoskeletal: No Endocrine: No HEENT: No Cancer: No Psychosocial: Yes Anxiety Integumentary: No Blood Disorders: No Family Medical History No Pertinent Family Hx Physical Exam Height, Weight, BMI Height: 6'0" Weight: 160lbs. oz. 72.620265hf; 19.00 BMI Method:Stated General Appearance: WD/WN, no apparent distress Mouth/Throat: pharynx normal, dental tenderness, other (dental abscess left lower side.) Neck: non-tender, full range of motion, supple, normal inspection Cardiovascular: normal peripheral pulses, regular rate, rhythm, no edema, no gallop, no JVD, no murmur Respiratory: chest non-tender, lungs clear, normal breath sounds, no respiratory distress, no accessory muscle use Gastrointestinal: normal bowel sounds, non tender, soft, no organomegaly, no pulsatile mass, tenderness, spleenomegaly Skin: normal color, warm/dry, other (small 3 cm area in the anterior lower left leg redness consistent with thrombophlebitis.) Progress/Results/Core Measures Progress Progress Note : Time: 08:34 Progress Note Dental abscess. Patient has been on medications for 2 days. Patient is to continue his doxycycline and Bactrim as previous prescribed. Patient is to follow-up with the dentist. Patient be given a prescription for diclofenac to help with his dental pain and swelling and thrombophlebitis. Follow-up with his PCP as instructed. Stop smoking. Ice as needed for swelling. Good oral and dental care as instructed. To follow up with PCP in 2-3 days Departure Impression Primary Impression: Dental abscess Additional Impressions: Dental caries Thrombophlebitis Disposition: 01 HOME, SELF-CARE Condition: Stable Departure-Patient Inst. Decision time for Depature: 08:35 Referrals: PRICE FITZGERALD MD (PCP/Family) Primary Care Physician Patient Instructions: Superficial Phlebitis, Dental Pain (DC), Tooth Abscess (DC) Add. Discharge Instructions: Patient is to continue his doxycycline and Bactrim as previous prescribed. Patient is to follow-up with the dentist. Patient be given a prescription for diclofenac to help with his dental pain and swelling and thrombophlebitis. Follow-up with his PCP as instructed. Stop smoking. Ice as needed for swelling. Good oral and dental care as instructed. To follow up with PCP in 2-3 days All discharge instructions reviewed with patient and/or family. Voiced understanding. Scripts Diclofenac Sodium (Diclofenac Sodium) 75 Mg Tablet. 75 MG PO BID for 10 Days, #20 TAB 0 Refills Prov: GAIL MAGANA MD 12/05/19 GAIL MAGANA MD Dec 05, 2019 08:36
== END 2019-12-05 08:40 | disposition home or self-care (01) ==
LOC: EDUNIT# 08:14 → ER FS 08:15
DX: K04.7 Periapical abscess without sinus (principal); K02.9 Dental caries, unspecified; I80.9 Phlebitis and thrombophlebitis of unspecified site; I10 Essential (primary) hypertension; Z88.0 Allergy status to penicillin; Z88.5 Allergy status to narcotic agent; Z88.8 Allergy status to other drugs, medicaments and biological substances
CPT/HCPCS: 99282

== ENCOUNTER → 2019-12-28 | Outpatient (CLI) | payer SELFPAY ==
[~2019-12-28] MED LIST changes: +DICL75TA2 PO
--- NOTE | 2019-12-28 14:52 | Diagnostic Imaging Report ---
INDICATION: Left-sided rib pain post fall. TECHNIQUE: Four views left ribs at 2:05 PM. CORRELATION STUDY: None. FINDINGS: No acute displaced left-sided rib fracture. The visualized left lung is clear without evidence for infiltrate, effusion, and/or pneumothorax. IMPRESSION: Negative for acute displaced left rib fracture. Dictated by: Dictated on workstation # [id number]
== END ==
LOC: RAD FS 13:55
PROVIDERS: ATTEND Nurse Practitioner
DX: R07.81 Pleurodynia (principal); S20.20XA Contusion of thorax, unspecified, initial encounter; W19.XXXA Unspecified fall, initial encounter
CPT/HCPCS: 71100

== ENCOUNTER 2020-02-29 11:51 | Emergency (ER) | payer SELFPAY ==
[~2020-02-29] VITALS: Ht 182 cm; Wt 80.0 kg
[2020-02-29 12:00] VITALS: BP 137/86
--- NOTE | 2020-02-29 12:11 | ED EENT ---
History of Present Illness General Chief Complaint: Dental Problems/Pain Stated Complaint: DENTAL PAIN Nursing Triage Note: PT HAD A WISDOM TOOTH PULLED JUST [facility] IN [place] AND CAME STRAIGHT TO THE ER BECAUSE IT HURTS. HE REPORTS THE DENTIST GAVE HIM IBUPROFEN AND RECOMMENDED THAT. History of Present Illness Date Seen by Provider: Feb 29, 2020 Time Seen by Provider: 12:06 Initial Comments Patient presenting to emergency department for evaluation of right mandibular molar site pain as he just came from his dentist in [place] who pulled his wisdom tooth and now he says it is painful. 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 He denies any significant swelling fevers chills difficulty opening his mouth swallowing or breathing. He says that his dentist and I'll prescribe him anything for pain and he is requesting a prescription for pain. I looked at the extraction site and there is no active bleeding and appeared to be unremarkable for a post extraction site. He says his dentist discharge him on antibiotics and told to take ibuprofen and Tylenol. He is in no obvious distress with normal vital signs. Allergies and Home Medications Allergies Coded Allergies: Penicillins (Verified Allergy, Mild, 08/27/15) citalopram (Unverified Adverse Reaction, Unknown, 01/10/19) tramadol (Unverified Adverse Reaction, Unknown, 01/10/19) Home Medications Acetaminophen with Codeine 1 Each Tablet, 1-2 EACH PO Q6H PRN for BREAK THRU DENTAL PAIN Prescribed by: BETH SOLANO on 02/09/192053 Clindamycin HCl 150 Mg Capsule, 300 MG PO QID Prescribed by: BETH SOLANO on 02/09/192053 Clindamycin HCl 300 Mg Capsule, 300 MG PO Q8H . Prescribed by: HUANG FRANCO on 08/15/19 1139 Diclofenac Sodium 75 Mg Tablet.dr, 75 MG PO BID Prescribed by: GAIL MAGANA on 12/05/19 0836 Doxycycline Hyclate 100 Mg Tablet, 100 MG PO BID Prescribed by: ELENI CROWELL on 12/01/19 1118 Ibuprofen 800 Mg Tablet, 800 MG PO Q8H PRN for PAIN Prescribed by: GAIL GARCIA on 01/10/19 1706 Ibuprofen 800 Mg Tablet, 800 MG PO Q8H PRN for PAIN Prescribed by: MARIANNA GIBSON on 02/04/19 1454 Ibuprofen 800 Mg Tablet, 800 MG PO Q8H PRN for PAIN Prescribed by: ELENI CROWELL on 12/01/19 1118 Morphine Sulfate 15 Mg Tablet, 15 MG PO Q8H PRN for PAIN-SEVERE (8-10) Prescribed by: HUANG FRANCO on 08/15/19 1125 Propranolol HCl 20 Mg Tablet, 20 MG PO DAILY Prescribed by: MARIANNA GIBSON on 02/04/19 1420 Patient Home Medication List Home Medication List Reviewed: Yes Review of Systems Review of Systems Constitutional: no symptoms reported Mouth: pain All Other Systems Reviewed Negative Unless Noted: Yes Past Qrafznv-Qpesow-Xgkmoe Hx Patient Social History Alcohol Use: Denies Use Recreational Drug Use: No Smoking Status: Never a Smoker Type Used: Smokeless Tobacco 2nd Hand Smoke Exposure: No Recent Foreign Travel: No Contact w/Someone Who Travel: No Recent Infectious Disease Expo: No Recent Hopitalizations: No Physical Abuse: No Sexual Abuse: No Mistreated: No Fear: No Immunizations Up To Date Tetanus Booster (TDap): Less than 5yrs Seasonal Allergies Seasonal Allergies: No Past Medical History Surgeries: Yes (WISDOM TOOTH EXTRACTON) Appendectomy Respiratory: No Cardiac: Yes Hypertension Neurological: No Reproductive Disorders: No Genitourinary: No Gastrointestinal: No Musculoskeletal: No Endocrine: No HEENT: No Cancer: No Psychosocial: Yes Anxiety Integumentary: No Blood Disorders: No Family Medical History No Pertinent Family Hx Physical Exam Vital Signs Vital Signs - First Documented 02/29/20 12:00 Temp 36.2 Pulse 72 Resp 18 B/P (MAP) 137/86 (103) O2 Delivery Room Air Height, Weight, BMI Height: 6'0" Weight: 160lbs. oz. 72.676953un; 24.00 BMI Method:Stated General Appearance: WD/WN, no apparent distress Mouth/Throat: other (dental extraction site in right mandibular wisdom tooth site appears unremarkable with no active bleeding noticed or large amount of swelling or signs of infection.) Progress/Results/Core Measures Results/Orders Vital Signs/I&O 02/29/20 12:00 Temp 36.2 Pulse 72 Resp 18 B/P (MAP) 137/86 (103) O2 Delivery Room Air Blood Pressure Mean: 103 Progress Progress Note : Progress Note Patient appears well with normal vital signs and no difficulty breathing or swallowing and there is no swelling on exam and is Airways patent. He became quite upset with me when I told him that opioids are not indicated for this and that if opioids are indicated his dentist should prescribe them. He persistently was upset with me and I told him that I am willing to call his dentist to see if his dentist is willing to call in a prescription or see him again later this afternoon to ensure that it is healing properly and the patient refused stating that if I was not willing to give him injections or pills that he was going to leave. I did offer him a dental block that would give him relief for at least 6 hours and he refused this saying that he did not want a nerve block rather he wanted opioid medications. Patient walked out after a disagreement with me and did not get his discharge instructions he left without therapeutic reason. Departure Impression Primary Impression: Pain of tooth socket Disposition: 01 HOME, SELF-CARE Condition: Stable Departure-Patient Inst. Referrals: JAROD DURHAM DO (PCP/Family) Primary Care Physician EMERY VILLARREAL DO Feb 29, 2020 12:11
== END 2020-02-29 12:09 | disposition left against medical advice (07) ==
LOC: EDUNIT# 11:51 → ER FS 11:53
DX: K08.89 Other specified disorders of teeth and supporting structures (principal); I10 Essential (primary) hypertension; F41.9 Anxiety disorder, unspecified; Z88.0 Allergy status to penicillin; Z88.5 Allergy status to narcotic agent; Z88.8 Allergy status to other drugs, medicaments and biological substances
CPT/HCPCS: 99282

== ENCOUNTER 2020-03-02 19:43 | Emergency (ER) | payer SELFPAY ==
[~2020-03-02] VITALS: Ht 182.9 cm; Wt 70.4 kg
[2020-03-02] MEDS ORDERED: KETOROLAC 60 MG/2 ML VIAL IM ONE (20:00)
[2020-03-02] MEDS ORDERED: LEVOFLOXACIN 500 MG TAB (LEVAQUIN) PO ONE (20:00)
[2020-03-02 20:01] VITALS: BP 149/85
[2020-03-02 20:13] LABS: BILIRUBIN,URINE 1+ (NEGATIVE); CLARITY,URINE CLEAR; COLOR,URINE DARK YELLOW; GLUCOSE, URINE (UA) NEGATIVE (NEGATIVE); KETONES,URINE 1+ (NEGATIVE); LEUKOCYTE ESTERASE ,URINE NEGATIVE (NEGATIVE); NITRITE,URINE NEGATIVE (NEGATIVE); PROTEIN,URINE NEGATIVE (NEGATIVE); RBC,URINE 0-2 /HPF
[2020-03-02 20:14] LABS: BACTERIA,URINE FEW /HPF
--- NOTE | 2020-03-02 20:27 | ED GU-Male ---
General Chief Complaint: Male Reproductive Stated Complaint: TESTICLES SWOLLEN/RED Nursing Triage Note: PT AMBULATE TO ROOM FS04 WITH C/O SWOLLEN TESTICLES. PT STATES HE WOKE UP THIS MORNING AND HIS TESTICLES WERE RED, SWOLLEN, AND PAINFUL. PT REPORTS TAKING IBUPROFEN THIS MORNING FOR THE PAIN. History of Present Illness Date Seen by Provider: Mar 02, 2020 Time Seen by Provider: 19:51 Initial Comments Patient arrives the ER by private conveyance with chief complaint of bilateral scrotal and testicular pain, erythema. He woke up with it about 6:00 this morning, 14 hours prior to arrival. No fevers chills nausea vomiting dysuria or discharge. No history of STDs. He doesn't history of genital herpes but no recent flares. He says is not sexually active in the past 4 months. Never had orchitis. Took 800 mg of Advil at 11:00 this morning with marginal relief of pain. Allergies and Home Medications Allergies Coded Allergies: Penicillins (Verified Allergy, Mild, 08/27/15) citalopram (Unverified Adverse Reaction, Unknown, 01/10/19) tramadol (Unverified Adverse Reaction, Unknown, 01/10/19) Home Medications Acetaminophen with Codeine 1 Each Tablet, 1-2 EACH PO Q6H PRN for BREAK THRU DENTAL PAIN Prescribed by: BETH SOLANO on 02/09/192053 Clindamycin HCl 150 Mg Capsule, 300 MG PO QID Prescribed by: BETH SOLANO on 02/09/192053 Clindamycin HCl 300 Mg Capsule, 300 MG PO Q8H . Prescribed by: HUANG FRANCO on 08/15/19 1139 Diclofenac Sodium 75 Mg Tablet.dr, 75 MG PO BID Prescribed by: GAIL MAGANA on 12/05/19 0836 Doxycycline Hyclate 100 Mg Tablet, 100 MG PO BID Prescribed by: ELENI CROWELL on 12/01/19 1118 Ibuprofen 800 Mg Tablet, 800 MG PO Q8H PRN for PAIN Prescribed by: GAIL GARCIA on 01/10/19 1706 Ibuprofen 800 Mg Tablet, 800 MG PO Q8H PRN for PAIN Prescribed by: MARIANNA GIBSON on 02/04/19 1454 Ibuprofen 800 Mg Tablet, 800 MG PO Q8H PRN for PAIN Prescribed by: ELENI CROWELL on 12/01/19 1118 Morphine Sulfate 15 Mg Tablet, 15 MG PO Q8H PRN for PAIN-SEVERE (8-10) Prescribed by: HUANG FRANCO on 08/15/19 1125 Propranolol HCl 20 Mg Tablet, 20 MG PO DAILY Prescribed by: MARIANNA GIBSON on 02/04/19 1420 Patient Home Medication List Home Medication List Reviewed: Yes Review of Systems Review of Systems Constitutional: No chills, No fever EENTM: No ear discharge, No ear pain Respiratory: No cough, No short of breath Cardiovascular: No chest pain, No edema Gastrointestinal: No abdominal pain, No nausea, No vomiting Genitourinary: denies discharge, denies dysuria All Other Systemes Reviewed Negative Unless Noted: Yes Past Mhzwnmq-Urihtl-Docbvj Hx Patient Social History Alcohol Use: Denies Use Recreational Drug Use: No Smoking Status: Never a Smoker Type Used: Smokeless Tobacco 2nd Hand Smoke Exposure: No Recent Foreign Travel: No Contact w/Someone Who Travel: No Recent Infectious Disease Expo: No Recent Hopitalizations: No Physical Abuse: No Sexual Abuse: No Mistreated: No Fear: No Immunizations Up To Date Tetanus Booster (TDap): Less than 5yrs Seasonal Allergies Seasonal Allergies: No Past Medical History Surgeries: Yes (WISDOM TOOTH EXTRACTON) Appendectomy Respiratory: No Cardiac: Yes Hypertension Neurological: No Reproductive Disorders: No Genitourinary: No Gastrointestinal: No Musculoskeletal: No Endocrine: No HEENT: No Cancer: No Psychosocial: Yes Anxiety Integumentary: No Blood Disorders: No Family Medical History No Pertinent Family Hx Physical Exam Vital Signs Vital Signs - First Documented 03/02/20 20:01 Temp 36.7 Pulse 108 Resp 19 B/P (MAP) 149/85 (106) O2 Delivery Room Air Capillary Refill : Less Than 3 Seconds Height, Weight, BMI Height: 6'0" Weight: 160lbs. oz. 72.704225mc; 21.00 BMI Method:Stated General Appearance: WD/WN, mild distress HEENT: PERRL/EOMI, pharynx normal Neck: full range of motion, normal inspection Cardiovascular: normal peripheral pulses, regular rate, rhythm Respiratory: no respiratory distress, no accessory muscle use Gastrointestinal: normal bowel sounds, non tender, soft Genital/Rectal: other (normal penis exam without lesions or discharge from urethra. No masses. Scrotum is erythematous and tender to light touch. No swelling. Testes are both descended and tender to outpatient but without masses. Minor, shotty bilateral lymphadenopathy. Cremasteric reflex present bilaterally.) Neurologic/Psychiatric: alert, oriented x 3 Skin: warm/dry, other (erythematous scrotum without bullae or crepitus.) Progress/Results/Core Measures Suspected Sepsis Recent Fever Within 48 Hours: No Infection Criteria Present: None New/Unexplained Altered Menta: No Sepsis Screen: No Definite Risk SIRS Temperature: Pulse: 108 Respiratory Rate: 19 Blood Pressure 149 /85 Mean: 106 Results/Orders Lab Results Laboratory Tests Test 03/02/20 20:01 Range/Units Urine Color DARK YELLOW Urine Clarity CLEAR Urine pH 6.0 5-9 Urine Specific [place] 1.025 H 1.016-1.022 Urine Protein NEGATIVE NEGATIVE Urine Glucose (UA) NEGATIVE NEGATIVE Urine Ketones 1+ H NEGATIVE Urine Nitrite NEGATIVE NEGATIVE Urine Bilirubin 1+ H NEGATIVE Urine Urobilinogen 1.0 < = 1.0 MG/DL Urine Leukocyte Esterase NEGATIVE NEGATIVE Urine RBC (Auto) NEGATIVE NEGATIVE Urine RBC 0-2 /HPF Urine WBC 2-5 /HPF Urine Squamous Epithelial Cells 2-5 /HPF Urine Renal Epithelial Cells NONE /HPF Urine Crystals NONE /LPF Urine Bacteria FEW H /HPF Urine Casts PRESENT /LPF Urine Hyaline Casts 2-5 H /LPF Urine Mucus LARGE H /LPF Urine Culture Indicated YES My Orders Orders - MARIANNA GIBSON Shine Dna Urine Test (03/02/20 19:58) Chlamydia Trachomatis Urine (03/02/20 19:58) Ua Culture If Indicated (03/02/20 19:58) Levofloxacin Tablet (Levaquin Tablet) (03/02/20 20:00) Ketorolac Injection (Toradol Injection) (03/02/20 20:00) Urine Culture (03/02/20 20:01) Syphilis Antibody Screen (03/02/20 20:16) Vital Signs/I&O 03/02/20 20:01 Temp 36.7 Pulse 108 Resp 19 B/P (MAP) 149/85 (106) O2 Delivery Room Air Capillary Refill : Less Than 3 Seconds Blood Pressure Mean: 106 Progress Note : Time: 20:24 Progress Note No evidence of Fermin's gangrene. Suspect orchitis. He started clindamycin yesterday for a bad tooth. We will have him stop that and give him some Levaquin shot of Toradol and check some labs including urine, common STD testing. We'll get him set up for ultrasound of the testicles in the morning but a torsion is unlikely given the timeline, presentation and clinical exam. No evidence of parotitis Departure Impression Primary Impression: Orchitis of both testicles Disposition: HOME, SELF-CARE Condition: Stable Departure-Patient Inst. Decision time for Depature: 20:25 Referrals: JAROD DURHAM DO (PCP/Family) Primary Care Physician Patient Instructions: Epididymitis (DC) Add. Discharge Instructions: Reproductive: Antibiotic which should start showing some improvement in the next 3-4 days with your swelling and pain. Tylenol 650 mg every 8 hours as necessary for pain. Ibuprofen 800 mg every 8 hours as necessary for pain. Hydrocodone one tablet every 6 hours for breakthrough pain. Warm moist heat may be helpful for pain. Levaquin 1 tablet daily starting tomorrow for the next 6 days. Stop taking the clindamycin. All discharge instructions reviewed with patient and/or family. Voiced understanding. Scripts Hydrocodone/Acetaminophen (Hydrocodone-Acetamin 5-325 mg) 1 Each Tablet 1 EACH PO Q6H PRN for PAIN-BREAKTHROUGH, #10 TAB 0 Refills Prov: MARIANNA GIBSON 03/02/20 Levofloxacin (Levaquin) 500 Mg Tablet 500 MG PO DAILY for 6 Days, #6 TAB 0 Refills Prov: MARIANNA GIBSON 03/02/20 Work/School Note: Work Release Form Date Seen in the Emergency Department: Mar 02, 2020 Return to Work: Mar 06, 2020 Restrictions: No Restrictions MARIANNA GIBSON Mar 02, 2020 20:27
[2020-03-02] MEDS ORDERED: LEVO500T2 PO (20:28)
[2020-03-02] MEDS ORDERED: HYDR-83 PO (20:28)
--- NOTE | 2020-03-02 20:35 | NUR ---
COPY OF OUTPATIENT ORDER FOR US FAXED TO REGISTRATION.
--- OUTSIDE RECORDS SUMMARY | 2020-03-02 21:47 | XMS REPORT ---
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 ([id number]) Vital Signs Date Time Vital Sign Value Performing Clinician Facil ity 11-04-2018 Body height 185.42 cm [facility] 18:00-0400 Other Phone: [facility] (35896) 11-04-2018 Body mass index 22.43 kg/m2 [facility] 18:00-0400 (BMI) [Ratio] Other Phone: [facility] [place] (57642) 11-04-2018 Body weight 77.11 kg [facility] 18:00-0400 Other Phone: [facility] (57948) 11-08-2014 Body height 180.34 cm [facility] 16:48-0400 Other Phone: [facility] (52255) 11-08-2014 Body temperature 97.8 [degF] [facility] 16:48[facility] Other Phone: [facility] (85337) 11-08-2014 Body weight 72.58 kg [facility] 16:48-0400 Other Phone: [facility] [place] (97472) 07-14-2014 Body height 180.34 cm [facility] 14:170500 Other Phone: [facility] [place] (73350) 07-14-2014 Body temperature 98.4 [degF] [facility] 14:17-0500 Other Phone: [facility] [place] (23250) 07-14-2014 Body weight 73.54 kg [facility] 14:170500 Other Phone: [facility] [place] (36565) 03-31-2014 Body temperature 98.1 [degF] SKYE POSADA [facility] 13:38-0400 Other Phone: [facility] [place] (38254) 03-31-2014 Body weight 69.85 kg SKYE POSADA [facility] 13:38-0400 Other Phone: [facility] [place] (44727) 02-18-2014 Body height 180.34 cm [facility] 18:04-0400 Other Phone: [facility] [place] (03224) 02-18-2014 Body weight 71.85 kg [facility] 18:04-0400 Other Phone: [facility] [place] (10151) 09-21-2013 Body height 180.34 cm [facility] 13:25-0500 [facility] (70650) 09-21-2013 Body temperature 99.1 [degF] [facility] 13:25-0500 [facility] (91365) 09-21-2013 Body weight 76.71 kg [facility] 13:25-0500 [facility] (88990) 11-13-2012 Body height 180.34 cm [facility] 15:42-0400 [facility] (12814) 11-13-2012 Body temperature 99.9 [degF] [facility] Migration [facility] 15:42-0400 [facility] (68793) 11-13-2012 Body weight 71.53 kg Doctor [facility] 15:42-0400 [facility] (19790) Functional Status Date Assessment Result Facility 08-15-2019 Functional status [place] Opioid-induced [facility] Sedation Scale (POSS) [facility] ([id number]) and alert Mental Status Date Assessment Result Facility 08-15-2019 Cognitive function [place] Opioid-induced Asce [facility] Sedation Scale (POSS) [facility] ([id number]) and alert Evaluation note Note Date & Note Facility Type Evaluation No Assessments Information Available [facility] Via note [facility] ([id number]) Summary Purpose eClinicalWorks SubmissioneClinicalWorks SubmissioneClinicalWorks SubmissioneClinicalWorks Submission Advance Directives Directive Response Recor ded Date/Time Advance Directives No 3:10pm Resuscitation Status Full Code 09/22/15 3:10pm Directive Response Recor ded Date/Time Advance Directives No 5:01pm Resuscitation Status Full Code 08/27/15 5:01pm Directive Response Recor ded Date/Time Advance Directives No 4:32pm Health Care Power of Seismograph Operator Helper No 01/10/19 4:32pm Organ Donor No 01/10/19 4:32pm Resuscitation Status Full Code 01/10/19 4:32pm Advance Directive Response Recorded Date/Time Advance Directives No [facility]2018 11:08am Health Care Power of Seismograph Operator Helper No August 15, 2019 11:08am Organ Donor No August 15, 2019 11:08am Resuscitation Status Full Code August 15, 2019 11:08am Advance Directive Response Recorded Date/Time Advance Directives No nu2019 8:12pm Health Care Power of Seismograph Operator Helper No September 18, 2019 8:12pm Organ Donor No August 262019 8:12pm Resuscitation Status Full Code September 18, 2019 8:12pm Advance Directive Response Recorded Date/Time Advance Directives No [facility] 2019 11:04am Health Care Power of Seismograph Operator Helper No December 01, 2019 11:04am Organ Donor No November 11:04am Resuscitation Status Full Code December 01, 2019 11:04am Advance Directive Response Recorded Date/Time Advance Directives No Ap 2019 8:22am Health Care Power of Seismograph Operator Helper No December 05, 2019 8:22am Organ Donor No November 8:22am Resuscitation Status Full Code December 05, 2019 8:22am Discharge Instructions No hospital discharge instructions.No hospital discharge instructions.No hospital discharge instructions.No hospital discharge instruction information available. Chief Complaint and Reason for Visit Chief Complaint Lower Extremity Reason for Visit Contusion of right tibia Chief Complaint Dental Problems/Pain Reason for Visit [id number] Chief Complaint Laceration Reason for Visit [id number] Chief Complaint Lower Extremity Reason for Visit [id number] Chief Complaint Dental Problems/Pain Reason for Visit [id number] Additional Source Comments This clinical document has been generated using [employer] software that has been certified by the Office of the National Coordinator for Health Information Technology (ONC 15.99.04.3023.Diam.[id number]) and the National Committee for Regulatory Consultant (NCQA, as an eMeasure certified technology). FOR [...] BASED ON T HE PRIMARY CLINICAL RECORDS. [employer] provides no warranty or guara ntee of the accuracy or completeness of information in this document.The followi ng information is based on time limited clinical information UNRECOGNIZED CONTENT PROVIDED BELOW FOR UNRECOGNIZED SECTION REASON FOR VISIT [id number]
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
--- OUTSIDE RECORDS SUMMARY | 2020-03-02 21:55 | XMS REPORT | Continuity of Care Document ---
Author Organization Unknown Address Unknown Phone Unavailable Allergies Active Description Code Type Severity Reaction Onset Reported/Identified Relationship to Patient Clinical Status Yes Flexeril 5 mg tablet Drug Graham rgy N/A N/A 01/12/2013 Yes Penicillins [id number] Drug Aller gy Mild N/A 08/27/2015 Yes citalopram [id number] Drug Allerg y Unknown N/A 01/10/2019 Yes tramadol [id number] Drug Allergy Unknown N/A 01/10/2019 Medications There [...] 525.9 TOOTH PAIN 11/13/2012 REBECCA WATTS DDS 52 5.9 TOOTH PAIN 11/13/2012 EMMETT LARA APRN 525 .9 TOOTH PAIN 11/13/2012 EMMETT LARA APRN 525 .9 TOOTH PAIN 11/13/2012 SKYE POSADA APRN 525.9 TOOTH PAIN 11/13/2012 EMMETT LARA APRN 525 .9 TOOTH PAIN 11/13/2012 EMMETT LARA APRN 525 .9 TOOTH PAIN 11/13/2012 EMMETT LARA APRN 525 .9 TOOTH PAIN 11/13/2012 JOSEPH DOCATHI K 525.9 TOOTH PAIN 11/13/2012 MARCO BRANCH SPECIALIST, EMMETT 525 .9 TOOTH PAIN 11/13/2012 DIMITRIS SANTANA, RBIE Rodriguez 525.9 TOOTH PAIN 11/13/2012 MARCO BRANCH SPECIALIST, EMMETT 525 .9 TOOTH PAIN 11/13/2012 MARCO BRANCH SPECIALIST, EMMETT 525 .9 TOOTH PAIN 11/13/2012 MARCO BRANCH SPECIALIST, EMMETT 525 .9 TOOTH PAIN 11/13/2012 RUIZ [...] 72 4.2 lower back pain 11/17/2012 MARCO BRANCH SPECIALIST, EMMETT 300 .00 anxiety 11/17/2012 MARCO BRANCH SPECIALIST, EMMETT 724 .2 lower back pain 11/17/2012 MARCO BRANCH SPECIALIST, EMMETT 300 .00 anxiety 11/17/2012 MARCO BRANCH SPECIALIST, EMMETT 724 .2 lower back pain 11/17/2012 POSADA BRANCH SPECIALIST, SKYE R 300.00 anxiety 11/17/2012 POSADA BRANCH SPECIALIST, SKYE R 724.2 lower back pain 11/17/2012 MARCO BRANCH SPECIALIST, EMMETT 300 .00 anxiety 11/17/2012 MARCO BRANCH SPECIALIST, EMMETT 724 .2 lower back pain 11/17/2012 MARCO BRANCH SPECIALIST, EMMETT 300 .00 anxiety 11/17/2012 MARCO BRANCH SPECIALIST, EMMETT 724 .2 lower back pain 11/17/2012 MARCO BRANCH SPECIALIST, EMMETT 300 .00 anxiety 11/17/2012 MARCO BRANCH SPECIALIST, EMMETT 724 .2 lower back pain 11/17/2012 CATHI RUIZ DO K 300.00 anxiety 11/17/2012 CATHI RUIZ DO 724.2 lower back pain 11/17/2012 MARCO BRANCH SPECIALIST, EMMETT 300 .00 anxiety 11/17/2012 MARCO BRANCH SPECIALIST, EMMETT 724 .2 lower back pain 11/17/2012 DIMITRIS SANTANA, BRIE Rodriguez 300.00 anxiety 11/17/2012 BRIE SHANKS PHD 724.2 lower back pain 11/17/2012 MARCO BRANCH SPECIALIST, EMMETT 300 .00 anxiety 11/17/2012 MARCO BRANCH SPECIALIST, EMMETT 724 .2 lower back pain 11/17/2012 MARCO BRANCH SPECIALIST, EMMETT 300 .00 anxiety 11/17/2012 MARCO BRANCH SPECIALIST, EMMETT 724 .2 lower back pain 11/17/2012 MARCO BRANCH SPECIALIST, EMMETT 300 .00 anxiety 11/17/2012 MARCO BRANCH SPECIALIST, EMMETT 724 .2 lower back pain 11/17/2012 [...] AN PANIC DIS W/O AGORA 01/12/2013 MARCO BRANCH SPECIALIST, EMMETT V58 .69 MEDICATION HIGH RISK 01/12/2013 MARCO BRANCH SPECIALIST, EMMETT 300 .01 AN PANIC DIS W/O AGORA 01/12/2013 MARCO BRANCH SPECIALIST, EMMETT V58 .69 MEDICATION HIGH RISK 01/12/2013 MARCO BRANCH SPECIALIST, EMMETT 300 .01 AN PANIC DIS W/O AGORA 01/12/2013 MARCO BRANCH SPECIALIST, EMMETT V58 .69 MEDICATION HIGH RISK 01/12/2013 CATHI RUIZ DO K 300.01 AN PANIC DIS W/O AGORA 01/12/2013 CATHI RUIZ DO K V58.69 MEDICATION HIGH RISK 01/12/2013 MARCO BRANCH SPECIALIST, EMMETT 300 .01 AN PANIC DIS W/O AGORA 01/12/2013 MARCO BRANCH SPECIALIST, EMMETT V58 .69 MEDICATION HIGH RISK 01/12/2013 DIMITRIS SANTANA, BRIE Rodriguez 300.01 AN PANIC DIS W/O AGORA 01/12/2013 DIMITRIS SANTANA, BRIE Rodriguez V58.69 MEDICATION HIGH RISK 01/12/2013 MARCO BRANCH SPECIALIST, EMMETT 300 .01 AN PANIC DIS W/O AGORA 01/12/2013 MARCO BRANCH SPECIALIST, EMMETT V58 .69 MEDICATION HIGH RISK 01/12/2013 MARCO BRANCH SPECIALIST, EMMETT 300 .01 AN PANIC DIS W/O AGORA 01/12/2013 MARCO BRANCH SPECIALIST, EMMETT V58 .69 MEDICATION HIGH RISK 01/12/2013 MARCO BRANCH SPECIALIST, EMMETT 300 .01 AN PANIC DIS W/O AGORA 01/12/2013 MARCO BRANCH SPECIALIST, EMMETT V58 .69 MEDICATION HIGH RISK 01/12/2013 CATHI RUIZ DO K 300.01 AN PANIC DIS W/O AGORA 01/12/2013 CATHI RUIZ DO V58.69 MEDICATION HIGH RISK 09/21/2013 IRIS ATTUM APRN 296.90 MOOD DISORDER NOS 09/21/2013 IRIS TATUM APRN 296.90 MOOD DISORDER NOS 09/21/2013 REBECCA WATTS DDS 296.90 MOOD DISORDER NOS 09/21/2013 MARCOJENS ADAMES EMMETT 296 .90 MOOD DISORDER NOS 09/21/2013 MARCO ADAMES EMMETT 296 .90 MOOD DISORDER NOS 09/21/2013 SKYE POSADA APRN 296.90 MOOD DISORDER NOS 09/21/2013 MARCO BRANCH SPECIALIST, EMMETT 296 .90 MOOD DISORDER NOS 09/21/2013 MARCO BRANCH SPECIALIST, EMMETT 296 .90 MOOD DISORDER NOS 09/21/2013 MARCO BRANCH SPECIALIST, EMMETT 296 .90 MOOD DISORDER NOS 09/21/2013 CATHI RUIZ DO 296.90 MOOD DISORDER NOS 09/21/2013 MARCO BRANCH SPECIALIST, EMMETT 296 .90 MOOD DISORDER NOS 09/21/2013 DIMITRIS SANTANA, BRIE Rodriguez 296.90 MOOD DISORDER NOS 09/21/2013 MARCO BRANCH SPECIALIST, EMMETT 296 .90 MOOD DISORDER NOS 09/21/2013 MARCO BRANCH SPECIALIST, EMMETT 296 .90 MOOD DISORDER NOS 09/21/2013 MARCO BRANCH SPECIALIST, EMMETT 296 .90 MOOD DISORDER NOS 09/21/2013 CATHI RUIZ DO 296.90 MOOD DISORDER NOS 03/31/2014 POSADA BRANCH SPECIALISTSKYE Michelle R 785.0 TACHYCARDIA UNSPECIFIED 03/31/2014 MARCO BRANCH SPECIALIST, EMMETT 785 .0 TACHYCARDIA UNSPECIFIED 03/31/2014 MARCO BRANCH SPECIALIST, EMMETT 785 .0 TACHYCARDIA UNSPECIFIED 03/31/2014 MARCO BRANCH SPECIALIST, EMMETT 785 .0 TACHYCARDIA UNSPECIFIED 03/31/2014 CATHI RUIZ DO K 785.0 TACHYCARDIA UNSPECIFIED 03/31/2014 MARCO BRANCH SPECIALIST, EMMETT 785 .0 TACHYCARDIA UNSPECIFIED 03/31/2014 DIMITRIS SANTANA, BRIE Rodriguez 785.0 TACHYCARDIA UNSPECIFIED 03/31/2014 MARCO BRANCH SPECIALIST, EMMETT 785 .0 TACHYCARDIA UNSPECIFIED 03/31/2014 MARCO BRANCH SPECIALIST, EMMETT 785 .0 TACHYCARDIA UNSPECIFIED 03/31/2014 MARCO BRANCH SPECIALIST, EMMETT 785 .0 TACHYCARDIA UNSPECIFIED 03/31/2014 CATHI RUIZ DO K 785.0 TACHYCARDIA UNSPECIFIED 05/07/2014 MARCO BRANCH SPECIALIST, EMMETT 719 .41 PAIN- SHOULDER 05/07/2014 CATHI RUIZ DO 719.41 PAIN- SHOULDER 05/07/2014 MARCO BRANCH SPECIALIST, EMMETT 719 .41 PAIN- SHOULDER 05/07/2014 DIMITRIS SANTANA, BRIE Rodriguez 719.41 PAIN- SHOULDER 05/07/2014 MARCO BRANCH SPECIALIST, EMMETT 719 .41 PAIN- SHOULDER 05/07/2014 MARCO BRANCH SPECIALIST, EMMETT 719 .41 PAIN- SHOULDER 05/07/2014 EMMETT LARA APRN 719 .41 PAIN- SHOULDER 05/07/2014 CATHI RUIZ DO K 719.41 PAIN- SHOULDER 05/09/2014 CATHI RUIZ DO V15.88 PERSONAL HISTORY OF FALL 05/09/2014 MARCOEMMETT COLINDRES APRN V15 .88 PERSONAL HISTORY OF FALL 05/09/2014 DIMITRIS PHD, BRIE Rodriguez V15.88 PERSONAL HISTORY OF FALL 05/09/2014 MARCO ZACARIAS EMMETT V15 .88 PERSONAL HISTORY OF FALL 05/09/2014 MARCO BRANCH SPECIALIST, EMMETT V15 .88 PERSONAL HISTORY OF FALL [...] STEPHANI OSUNA, DAWSON Mccurdy Ot Z79. 52 BRICK LOADER (CURRENT) USE OF SYSTEMIC STER 11/30/2018 STEPHANI OSUNA, DAWSON Mccurdy Ot Z88. 0 ALLERGY STATUS TO PENICILLIN 12/02/2018 STEPHANI OSUNA, DAWSON Mccurdy Ot Z02. 89 ENCOUNTER FOR OTHER ADMINISTRATIVE EXAMI 12/02/2018 STEPHANI OSUNA, DAWSON Mccurdy Ot Z79. 52 BRICK LOADER (CURRENT) USE OF SYSTEMIC STER 12/02/2018 STEPHANI [...] STATUS TO OTH DRUG/MEDS/BIOL SUB 02/09/2019 XIOMARA DO, BETH Rodriguez Ot Z90.49 ACQUIRED ABSENCE OF OTHER SPECIFIED PART 02/11/2019 XIOMARA DO, BETH Rodriguez Ot F41.9 ANXIETY DISORDER, UNSPECIFIED 02/11/2019 XIOMARA DO, BETH Rodriguez Ot I1 0 ESSENTIAL (PRIMARY) HYPERTENSION 02/11/2019 XIOMARA DO, BETH Rodriguez Ot K02.9 DENTAL CARIES, UNSPECIFIED 02/11/2019 XIOMARA DO, BETH Rodriguez Ot R5 1 HEADACHE 02/11/2019 XIOMARA DO, BETH Rodriguez Ot Z88.0 ALLERGY STATUS TO PENICILLIN 02/11/2019 XIOMARA DO, BETH Rodriguez Ot Z88.6 ALLERGY STATUS TO ANALGESIC AGENT STATUS 02/11/2019 XIOMARA DO, BETH Rodriguez Ot Z88.8 ALLERGY STATUS TO OTH DRUG/MEDS/BIOL SUB 02/11/2019 XIOMARA DOBETH Ot Z90.49 ACQUIRED ABSENCE OF OTHER SPECIFIED PART 08/15/2019 FRANCO DO, HUANG L Ot F41.9 ANXIETY DISORDER, UNSPECIFIED 08/15/2019 FRANCO DO, HUANG L Ot I10 ESSENTIAL (PRIMARY) HYPERTENSION 08/15/2019 FRANCO DO, HUANG L Ot K02.9 DENTAL CARIES, UNSPECIFIED 08/15/2019 FRANCO DO, HUANG L Ot K08.8 9 OTHER SPECIFIED DISORDERS OF TEETH AND S 08/15/2019 FRANCO DO, HUANG L Ot S02.5XXA FRACTURE OF TOOTH (TRAUMATIC), INIT FOR 08/15/2019 FRANCO DO, HUANG L Ot X58.XXXA EXPOSURE TO OTHER SPECIFIED FACTORS, INI 08/15/2019 FRANCO DO, HUANG L Ot Z88.0 ALLERGY STATUS TO PENICILLIN 08/15/2019 FRANCO DO, HUANG L Ot Z88.5 ALLERGY STATUS TO NARCOTIC AGENT STATUS 08/15/2019 FRANCO DO, HUANG L Ot Z88.8 ALLERGY STATUS TO OTH DRUG/MEDS/BIOL SUB 08/15/2019 FRANCO DO, HUANG L Ot Z90.4 9 ACQUIRED ABSENCE OF OTHER SPECIFIED PART 09/18/2019 [...] ALLERGY STATUS TO NARCOTIC AGENT STATUS 09/18/2019 FRANCO DO, HUANG L Ot Z88.8 ALLERGY STATUS TO OTH DRUG/MEDS/BIOL SUB 09/18/2019 FRANCO DO, HUANG L Ot Z90.4 9 ACQUIRED ABSENCE OF OTHER SPECIFIED PART 12/01/2019 ROVENSTINE DO, ELENI L Ot F17.290 NICOTINE DEPENDENCE, OTHER TOBACCO PRODU 12/01/2019 ROVENSTINE DO, ELENI L Ot F41.9 ANXIETY DISORDER, UNSPECIFIED 12/01/2019 ROVENSTINE DO, ELENI L Ot I10 ESSENTIAL (PRIMARY) HYPERTENSION 12/01/2019 ROVENSTINE DO, ELENI L Ot L03.116 CELLULITIS OF LEFT LOWER LIMB 12/01/2019 ROVENSTINE DO, ELENI L Ot Z88.0 ALLERGY STATUS TO PENICILLIN 12/01/2019 ROVENSTINE DO, ELENI L Ot Z88.5 ALLERGY STATUS TO NARCOTIC AGENT STATUS 12/01/2019 ROVENSTINE DO, ELENI L Ot Z88.8 ALLERGY STATUS TO OTH DRUG/MEDS/BIOL SUB 12/03/2019 ROVENSTINE DO, ELENI L Ot F17.290 NICOTINE DEPENDENCE, OTHER TOBACCO PRODU 12/03/2019 ROVENSTINE DO, ELENI L Ot F41.9 ANXIETY DISORDER, UNSPECIFIED 12/03/2019 ROVENSTINE DO, ELENI L Ot I10 ESSENTIAL (PRIMARY) HYPERTENSION 12/03/2019 ROVENSTINE DO, ELENI L Ot L03.116 CELLULITIS OF LEFT LOWER LIMB 12/03/2019 ROVENSTINE DO, ELENI L Ot Z88.0 ALLERGY STATUS TO PENICILLIN 12/03/2019 ROVENSTINE DO, ELENI L Ot Z88.5 ALLERGY STATUS TO NARCOTIC AGENT STATUS 12/03/2019 ROVENSTINE DO, ELENI Karimi Ot Z88.8 ALLERGY STATUS TO OTH DRUG/MEDS/BIOL SUB 12/07/2019 GAIL MAGANA MD Ot I1 0 ESSENTIAL (PRIMARY) HYPERTENSION 12/07/2019 GAIL MAGANA MD Ot I80.9 PHLEBITIS AND THROMBOPHLEBITIS OF UNSPEC 12/07/2019 GAIL MAGANA MD Ot K02.9 DENTAL CARIES, UNSPECIFIED 12/07/2019 GAIL MAGANA MD Ot K04.7 PERIAPICAL ABSCESS WITHOUT SINUS 12/07/2019 GAIL MAGANA MD Ot K08.89 OTHER SPECIFIED DISORDERS OF TEETH AND S 12/07/2019 GAIL MAGANA MD Ot Z88.0 ALLERGY STATUS TO PENICILLIN 12/07/2019 GAIL MAGANA MD Ot Z88.5 ALLERGY STATUS TO NARCOTIC AGENT STATUS 12/07/2019 GAIL MAGANA MD Ot Z88.8 ALLERGY STATUS TO OTH DRUG/MEDS/BIOL SUB 12/30/2019 AUDELIA PADILLA Ot R07.81 PLEURODYNIA 12/30/2019 AUDELIA PADILLA Ot S20.20XA CONTUSION OF THORAX, UNSPECIFIED, INITIA 12/30/2019 AUDELIA PADILLA Ot W19.XXXA UNSPECIFIED FALL, INITIAL ENCOUNTER Procedures Code Description [place] [address] ROUT INE VENIPUNCTURE 11/17/2012 62229 URIN E PCP GC/MS 11/17/2012 88913 URIN E OPIATES 11/17/2012 89958 URIN E DRUG SCREEN (IN-HOUSE) 11/17/2012 69713 CBC 11/17/2012 96706 CMP 11/17/2012 6886694 GF R CALC (RESULT ONLY) 11/17/2012 10106 URIN E DRUG SCREEN (IN-HOUSE) 12/15/2012 92565 XRAY LUMBAR SPINE 2 OR 3 VIEWS 12/21/2012 PSYCH ELENI NUNO 12/21/2012 63166 URIN E DRUG SCREEN (IN-HOUSE) 01/12/2013 78518 PSYC H DIAG EVAL W/MED SRVCS 02/06/2013 64930 URIN E DRUG SCREEN (IN-HOUSE) 05/27/2013 96314 UA L MAYLIN DIP 03/31/2014 33539 URIN E DRUG SCREEN (IN-HOUSE) 03/31/2014 Orthopedi Miki Osorio 05/07/2014 31465 XRAY SHOULDER LEFT COMP 2 VIEWS 05/12/2014 48617 PSYC H DIAGNOSTIC EVALUATION 06/23/2014 06553 PSYT X PT&/FAMILY 45 MINUTES 07/15/2014 J2550 [...] - 02/04/19 13:50 Magnesium 1.9 mg/dL 1.8-2.4 CBC - 12/06/19 09:05 WHITE BLOOD CELL COUNT 5.8 Thousand/uL 3 .8-10.8 RED BLOOD CELL COUNT 4.27 Million/uL 4.2 0-5.80 HEMOGLOBIN 14.0 g/dL 13.2-17.1 HEMATOCRIT 41.6 % 38.5-50.0 MCV 97.4 fL 80.0-100.0 MCH 32.8 pg 27.0-33.0 MCHC 33.7 g/dL 32.0-36.0 RDW 13.8 % 11.0-15.0 PLATELET COUNT 329 Thousand/uL 140-400 MPV 9.5 fL 7.5-12.5 ABSOLUTE NEUTROPHILS 3967 cells/uL 1500- 7800 ABSOLUTE LYMPHOCYTES 876 cells/uL 850-39 00 ABSOLUTE MONOCYTES 887 cells/uL 200-950 ABSOLUTE EOSINOPHILS 29 cells/uL 15-500 ABSOLUTE BASOPHILS 41 cells/uL 0-200 NEUTROPHILS 68.4 % NRG LYMPHOCYTES 15.1 % NRG MONOCYTES 15.3 % NRG EOSINOPHILS 0.5 % NRG BASOPHILS 0.7 % NRG HCV RNA, QUANTITATIVE REAL TIME PCR - 12:25 HCV RNA, QUANTITATIVE REAL TIME PCR [id number] IU/mL NOT DETECTED HCV RNA, QUANTITATIVE REAL TIME PCR 6.75 Log IU/mL NOT DETECTED COMMENT NRG Complete urinalysis with reflex to cultu re - 03/02/20 20:01 Urine color determination DARK YELLOW N RG Urine clarity determination CLEAR NR G Urine pH measurement by test strip 6.0 5-9 Specific gravity of urine by test strip 1.025 1.016-1.022 Urine protein assay by test strip, semi-quantitative NEGATIVE NEGATIVE Urine glucose detection by automated test strip NE GATIVE NEGATIVE Erythrocytes detection in urine sediment by light micr oscopy NEGATIVE NEGATIVE Urine ketones detection by automated test strip 1+ NEGATIVE Urine nitrite detection by test strip NEGATIVE NEGATIVE Urine total bilirubin detection by test strip 1+ NEGATIVE Urine urobilinogen measurement by automated test strip (mass/volume) 1.0 mg/dL < = 1.0 Urine leukocyte esterase detection by dipstick NEG ATIVE NEGATIVE Automated urine sediment erythrocyte cou nt by microscopy (number/high power field) [HPF] NRG Automated urine sediment leukocyte count by microscopy (number/high power field) [HPF] NRG Bacteria detection in urine sediment by light microsco py FEW NRG Squamous epithelial cells detection in u rine sediment by light microscopy 2-5 NRG Crystals detection in urine sediment by light microsco py NONE NRG Casts detection in urine sediment by light microscopy PRESENT NRG Mucus detection in urine sediment by light microscopy LARGE NRG Complete urinalysis with reflex to culture YES NRG Hyaline casts detection in urine sediment by light adán roscopy 2-5 NRG Renal epithelial cells detection in urin e sediment by light microscopy NONE NRG Encounters ACCT No. Visit Date/Time Discharge Status Pt. Type Provider Facility Loc./Unit Complaint [id number] 12/02/2014 16:12:00 12/02/2014 23:59: 59 CLS Outpatient CATHI RUIZ DO [id number] 11/08/2014 15:48:00 11/08/2014 23:59: 59 CLS Outpatient EMMETT LARA APRN [id number] 07/14/2014 15:40:00 07/14/2014 23:59: 59 CLS Outpatient EMMETT LARA APRN [id number] 07/14/2014 15:40:00 07/14/2014 23:59: 59 CLS Outpatient EMMETT LARA APRN [id number] 06/23/2014 12:50:00 06/23/2014 23:59: 59 CLS Outpatient DIMITRIS SANTANA, BRIE Rodriguez [id number] 05/09/2014 16:37:00 05/09/2014 23:59: 59 CLS Outpatient CATHI RUIZ DO [id number] 05/05/2014 15:01:00 05/05/2014 23:59: 59 CLS Outpatient EMMETT LARA APRN [id number] 05/05/2014 15:01:00 05/05/2014 23:59: 59 CLS Outpatient EMMETT LARA APRN [id number] 03/31/2014 16:07:00 03/31/2014 23:59: 59 CLS Outpatient EMMETT LARA APRN [id number] 03/31/2014 16:07:00 03/31/2014 23:59: 59 CLS Outpatient EMMETT LARA APRN [id number] 03/31/2014 12:38:00 03/31/2014 23:59: 59 CLS Outpatient SKYE POSADA APRN [id number] 02/18/2014 16:04:00 02/18/2014 23:59: 59 CLS Outpatient EMMETT LARA APRN [id number] 02/18/2014 16:04:00 02/18/2014 23:59: 59 CLS Outpatient RYANNE LARA APRNETTE [id number] 10/08/2013 13:10:00 10/08/2013 23:59: 59 CLS Outpatient STEFANIE RAZIA REBECCA Viviana [id number] 09/21/2013 13:25:00 09/21/2013 23:59: 59 CLS Outpatient IRIS TATUM APRN [id number] 09/21/2013 13:25:00 09/21/2013 23:59: 59 CLS Outpatient IRIS TATUM APRN [id number] 08/03/2013 12:23:00 08/03/2013 23:59: 59 CLS Outpatient RADHA KAPADIA DDS [id number] 05/27/2013 14:15:00 05/27/2013 23:59: 59 CLS Outpatient IRIS TATUM APRN [id number] 05/27/2013 13:15:00 05/27/2013 23:59: 59 CLS Outpatient IRIS TATUM APRN [id number] 03/12/2013 12:17:00 03/12/2013 23:59: 59 CLS Outpatient IRIS TATUM APRN [id number] 11/20/2012 13:53:00 11/20/2012 23:59: 59 CLS Outpatient [id number] 11/13/2012 14:42:00 11/13/2012 23:59: 59 CLS Outpatient [id number] 01/12/2013 14:25:00 Document Registration [id number] 01/12/2013 14:25:00 Document Registration [id number] 12/18/2012 13:00:00 Document Registration [id number] 11/27/2012 09:51:00 Document Registration [id number] 02/29/2020 10:45:00 ACT Outpatient MELANIE COFFEY CHCMARLEEN PANDYA [id number] 02/11/2020 10:30:00 Document Registration [id number] 12/06/2019 08:20:00 Document Registration [id number] 11/12/2018 12:00:00 Document Registration [id number] 02/29/2020 11:53:00 12:09:00 DIS Emergency EMERY VILLARREAL DO [facility] ER FS DENTAL PAIN [id number] 12/28/2019 13:55:00 23:59:59 CLS Outpatient AUDELIA PADILLA [facility] RAD FS RIB PAIN L SIDE,FALL [id number] 12/05/2019 08:15:00 08:40:00 DIS Outpatient GAIL MAGANA MD [facility] ER FS JAW PAIN/SWELLING [id number] 12/01/2019 11:00:00 11:31:00 DIS Emergency ROVENSTELENI TURK DO [facility] ER FS LT LEG INJ [id number] 09/18/2019 20:04:00 20:49:00 DIS Emergency HUANG FRANCO DO [facility] ER FS LACERATION [id number] 08/15/2019 11:01:00 11:31:00 DIS Emergency FRANCO HUANG PAULSON L [facility] ER FS SWOLLEN JAW [id number] 02/09/2019 20:36:00 21:05:00 DIS Emergency BETH SOLANO DO [facility] ER FS LT SIDE FACE PAIN AND S WELLING [id number] 02/04/2019 13:33:00 15:15:00 DIS Emergency MARIANNA GIBSON MD [facility] ER FS MEDICAL CLEARANCE [id number] 01/10/2019 16:28:00 17:35:00 DIS Emergency GAIL GARCIA DO [facility] ER FS RT LEG PAIN - BROKE IT 6 DAYS AGO [id number] 11/30/2018 11:05:00 11:32:00 DIS Emergency STEPHANI MD, DAWSON S [facility] ER FS MEDICAL CLEARANCE [id number] 09/22/2015 14:43:00 016 23:59:59 CLS Emergency SAIDA MEADOWS [facility] ER LEFT KNEE PAIN [id number] 08/27/2015 16:25:00 016 18:01:00 DIS Emergency JOSÉ MIGUEL DIANE APRN [facility] ER LEFT LEG PAIN [id number] 03/27/2015 09:30:00 015 23:59:59 CLS Preadmit FAITH RODRIGUEZ [facility] RAD 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 [id number] 03/02/2020 20:15:00 Document Registration
== END 2020-03-02 20:38 | disposition home or self-care (01) ==
LOC: EDUNIT# 19:43 → ER FS 19:44
DX: N45.2 Orchitis (principal); I10 Essential (primary) hypertension; F41.9 Anxiety disorder, unspecified; Z88.0 Allergy status to penicillin; Z88.5 Allergy status to narcotic agent; Z88.8 Allergy status to other drugs, medicaments and biological substances
CPT/HCPCS: 36415; 81000; 86780; 87088; 87491; 87591

== ENCOUNTER 2020-03-04 13:08 | Emergency (ER) | payer SELFPAY ==
[~2020-03-04 13:08] MED LIST changes: +HYDR-83 PO; +LEVO500T2 PO
[2020-03-04] MEDS ORDERED: KETOROLAC 60 MG/2 ML VIAL IM ONE (13:30)
[2020-03-04] MEDS ORDERED: ACETAMINOPHEN 325 MG TABLET PO ONE (13:30)
[2020-03-04 14:25] LABS: BASOPHILS % (AUTO) 0 % (0-10); EOSINOPHILS # (AUTO) 0.1 10^3/uL (0.0-0.3); EOSINOPHILS % (AUTO) 1 % (0-10); HEMATOCRIT 37 % (40-54); HEMOGLOBIN 12.3 G/DL (13.3-17.7); LYMPHOCYTES # (AUTO) 1.4 X 10^3 (1.0-4.0); LYMPHOCYTES % (AUTO) 14 % (12-44); MEAN CORPUSCULAR HEMOGLOBIN 32 PG (25-34); MEAN CORPUSCULAR HGB CONC 33 G/DL (32-36); MEAN CORPUSCULAR VOLUME 98 FL (80-99); MEAN PLATELET VOLUME 9.9 FL (7.4-10.4); MONOCYTES # (AUTO) 1.2 X 10^3 (0.0-1.0); MONOCYTES % (AUTO) 12 % (0-12); NEUTROPHILS # (AUTO) 7.1 X 10^3 (1.8-7.8); NEUTROPHILS % (AUTO) 73 % (42-75); PLATELET COUNT 232 10^3/uL (130-400); RED CELL DISTRIBUTION WIDTH 13.8 % (10.0-14.5); WHITE BLOOD COUNT 9.8 10^3/uL (4.3-11.0)
[2020-03-04 14:39] LABS: BILIRUBIN,URINE NEGATIVE (NEGATIVE); CLARITY,URINE CLEAR; COLOR,URINE YELLOW; GLUCOSE, URINE (UA) NEGATIVE (NEGATIVE); KETONES,URINE NEGATIVE (NEGATIVE); LEUKOCYTE ESTERASE ,URINE NEGATIVE (NEGATIVE); NITRITE,URINE NEGATIVE (NEGATIVE); PH,URINE 5.5 (5-9); PROTEIN,URINE NEGATIVE (NEGATIVE); SQUAMOUS EPITHELIAL CELL,UR RARE /HPF
[2020-03-04 14:40] LABS: BAND NEUTROPHILS 11 %; BASOPHILS % (MANUAL) 0 %; EOSINOPHILS % (MANUAL) 0 %; LYMPHOCYTES % (MANUAL) 10 %; MONOCYTES % (MANUAL) 12 %; NEUTROPHILS % (MANUAL) 67 %; RBC MORPH NORMAL
[2020-03-04 14:43] LABS: BUN/CREATININE RATIO 14; CALCIUM 8.7 MG/DL (8.5-10.1); CARBON DIOXIDE 23 MMOL/L (21-32); CHLORIDE 105 MMOL/L (98-107); CREATININE SERUM 0.74 MG/DL (0.60-1.30); GFR ESTIMATED > 60; GLUCOSE 94 MG/DL (70-105); POTASSIUM 4.2 MMOL/L (3.6-5.0); SODIUM 141 MMOL/L (135-145)
--- NOTE | 2020-03-04 14:59 | ED GU-Male ---
General Chief Complaint: Male Reproductive Stated Complaint: GROIN PAIN Nursing Triage Note: Patient here for bilateral testicle pain. States testicles are swollen and red. Was seen in ED two days ago and diagnosed with orchitis, started on abx. Was seen in clinic yesterday but states they did not do anything different. Has ultrasound scheduled for friday. States they are hurting worse and more swollen today than they have been. History of Present Illness Date Seen by Provider: Mar 04, 2020 Time Seen by Provider: 14:00 Initial Comments The patient is a 35-year-old male who presents for evaluation of 4 days of scrotal/testicular erythema, swelling and pain. Patient was seen in this emergency department [address] Hernandez who obtained urinalysis and urine gonorrhea and chlamydia testing (all negative), as well as UDS (positive for methamphetamines, amphetamines and cocaine) and placed the patient empirically on a course of oral levofloxacin for orchitis. Patient was seen in the outpatient clinic yesterday for reevaluation and no changes were reportedly made and management. Patient was supposed to have had an outpatient scrotal and testicular ultrasound yesterday but this has not occurred yet and is currently scheduled for Friday. Patient states that on antibiotic therapy his scrotal and testicular pain and swelling have worsened dramatically. He states he is in so much discomfort that it is hard for him to walk. He denies fevers, nausea or vomiting, abdominal pain of any kind, flank pain, back pain, dysuria or hematuria, perineal or rectal pain, changes in bowel habits. He denies any recent unprotected sexual intercourse. Allergies and Home Medications Allergies Coded Allergies: Penicillins (Verified Allergy, Mild, 08/27/15) citalopram (Unverified Adverse Reaction, Unknown, 01/10/19) tramadol (Unverified Adverse Reaction, Unknown, 01/10/19) Home Medications Acetaminophen with Codeine 1 Each Tablet, 1-2 EACH PO Q6H PRN for BREAK THRU DENTAL PAIN Prescribed by: BETH SOLANO on 02/09/192053 Clindamycin HCl 150 Mg Capsule, 300 MG PO QID Prescribed by: BETH SOLANO on 02/09/192053 Clindamycin HCl 300 Mg Capsule, 300 MG PO Q8H . Prescribed by: HUANG FRANCO on 08/15/19 1139 Diclofenac Sodium 75 Mg Tablet.dr, 75 MG PO BID Prescribed by: GAIL MAGANA on 12/05/19 0836 Doxycycline Hyclate 100 Mg Tablet, 100 MG PO BID Prescribed by: ELENI CROWELL on 12/01/19 1118 Hydrocodone/Acetaminophen 1 Each Tablet, 1 EACH PO Q6H PRN for PAIN-BREAKTHROUGH Prescribed by: MARIANNA HERNANDEZ on 03/02/202027 Ibuprofen 800 Mg Tablet, 800 MG PO Q8H PRN for PAIN Prescribed by: GAIL GARCIA on 01/10/19 1706 Ibuprofen 800 Mg Tablet, 800 MG PO Q8H PRN for PAIN Prescribed by: MARIANNA HERNANDEZ on 02/04/19 1454 Ibuprofen 800 Mg Tablet, 800 MG PO Q8H PRN for PAIN Prescribed by: ELENI CROWELL on 12/01/19 1118 Levofloxacin 500 Mg Tablet, 500 MG PO DAILY Prescribed by: MARIANNA HERNANDEZ on 03/02/202027 Morphine Sulfate 15 Mg Tablet, 15 MG PO Q8H PRN for PAIN-SEVERE (8-10) Prescribed by: HUNAG FRANCO on 08/15/19 112 Propranolol HCl 20 Mg Tablet, 20 MG PO DAILY Prescribed by: MARIANNA HERNANDEZ on 02/04/19 1420 Patient Home Medication List Home Medication List Reviewed: Yes Review of Systems Review of Systems Constitutional: see HPI All Other Systemes Reviewed Negative Unless Noted: Yes (Negative excepted noted.) Past Bpabgdk-Pjaoea-Ewdlgm Hx Past Med/Social Hx: Reviewed Nursing Past Med/Soc Hx Patient Social History Alcohol Use: Denies Use Recreational Drug Use: No Type Used: Smokeless Tobacco 2nd Hand Smoke Exposure: No Recent Foreign Travel: No Contact w/Someone Who Travel: No Recent Infectious Disease Expo: No Recent Hopitalizations: No Immunizations Up To Date Tetanus Booster (TDap): Less than 5yrs Seasonal Allergies Seasonal Allergies: No Past Medical History Surgeries: Yes (WISDOM TOOTH EXTRACTON) Appendectomy Respiratory: No Cardiac: Yes Hypertension Neurological: No Reproductive Disorders: No Genitourinary: No Gastrointestinal: No Musculoskeletal: No Endocrine: No HEENT: No Cancer: No Psychosocial: Yes Anxiety Integumentary: No Blood Disorders: No Family Medical History Reviewed Nursing Family Hx No Pertinent Family Hx Physical Exam Vital Signs Vital Signs - First Documented 03/04/20 13:13 Temp 36.5 Pulse 82 Resp 16 B/P (MAP) 139/75 (96) Pulse Ox 100 Capillary Refill : Less Than 3 Seconds Height, Weight, BMI Height: 6'0" Weight: 160lbs. oz. [id number]; 21.00 BMI Method:Stated General Appearance: no apparent distress Comments Younger male appearing nontoxic and in no acute distress. Head is normocephalic and atraumatic. Neck is supple and nontender. Oropharynx is moist. Lungs are clear to auscultation at all stations. There is a normal S1 and S2 without rubs or gallops and capillary refill is appropriate, less than 2 seconds globally. Abdomen is soft, nontender and nondistended. Skin is warm and dry without cyanosis, clubbing or edema. Psychiatrically, the patient demonstrates appropriate mood and affect and is alert. Genitourinary examination is remarkable for significant erythema and tenderness affecting both sides of the scrotum, left somewhat worse than the right on my exam. No clear abnormal lie. Intact cremasteric reflex bilaterally. Positive inguinal lymphadenopathy worst on the right. No perineal or rectal abnormalities identified. Progress/Results/Core Measures Suspected Sepsis Recent Fever Within 48 Hours: No Infection Criteria Present: None New/Unexplained Altered Menta: No Sepsis Screen: No Definite Risk SIRS Temperature: Pulse: 82 Respiratory Rate: 16 Laboratory Tests 03/04/20 14:10: White Blood Count 9.8 Blood Pressure 139 /75 Mean: 96 Laboratory Tests 03/04/20 14:10: Creatinine 0.74, Platelet Count 232 Results/Orders Lab Results Laboratory Tests Test 03/04/20 14:10 Range/Units White Blood Count 9.8 4.3-11.0 10^3/uL Red Blood Count 3.81 L 4.35-5.85 10^6/uL Hemoglobin 12.3 L 13.3-17.7 G/DL Hematocrit 37 L 40-54 % Mean Corpuscular Volume 98 80-99 FL Mean Corpuscular Hemoglobin 32 25-34 PG Mean Corpuscular Hemoglobin Concent 33 32-36 G/DL Red Cell Distribution Width 13.8 10.0-14.5 % Platelet Count 232 130-400 10^3/uL Mean Platelet Volume 9.9 7.4-10.4 FL Neutrophils (%) (Auto) 73 42-75 % Lymphocytes (%) (Auto) 14 12-44 % Monocytes (%) (Auto) 12 0-12 % Eosinophils (%) (Auto) 1 0-10 % Basophils (%) (Auto) 0 0-10 % Neutrophils # (Auto) 7.1 1.8-7.8 X 10^3 Lymphocytes # (Auto) 1.4 1.0-4.0 X 10^3 Monocytes # (Auto) 1.2 H 0.0-1.0 X 10^3 Eosinophils # (Auto) 0.1 0.0-0.3 10^3/uL Basophils # (Auto) 0.0 0.0-0.1 10^3/uL Neutrophils % (Manual) 67 % Lymphocytes % (Manual) 10 % Monocytes % (Manual) 12 % Eosinophils % (Manual) 0 % Basophils % (Manual) 0 % Band Neutrophils 11 % Blood Morphology Comment NORMAL Urine Color YELLOW Urine Clarity CLEAR Urine pH 5.5 5-9 Urine Specific Fox >1.030 1.016-1.022 Urine Protein NEGATIVE NEGATIVE Urine Glucose (UA) NEGATIVE NEGATIVE Urine Ketones NEGATIVE NEGATIVE Urine Nitrite NEGATIVE NEGATIVE Urine Bilirubin NEGATIVE NEGATIVE Urine Urobilinogen 0.2 < = 1.0 MG/DL Urine Leukocyte Esterase NEGATIVE NEGATIVE Urine RBC (Auto) NEGATIVE NEGATIVE Urine RBC NONE /HPF Urine WBC NONE /HPF Urine Squamous Epithelial Cells RARE /HPF Urine Crystals NONE /LPF Urine Bacteria NONE /HPF Urine Casts NONE /LPF Urine Mucus NEGATIVE /LPF Urine Culture Indicated NO Sodium Level 141 135-145 MMOL/L Potassium Level 4.2 3.6-5.0 MMOL/L Chloride Level 105 98-107 MMOL/L Carbon Dioxide Level 23 21-32 MMOL/L Anion Gap 13 5-14 MMOL/L Blood Urea Nitrogen 10 7-18 MG/DL Creatinine 0.74 0.60-1.30 MG/DL Estimat Glomerular Filtration Rate > 60 BUN/Creatinine Ratio 14 Glucose Level 94 70-105 MG/DL Calcium Level 8.7 8.5-10.1 MG/DL My Orders Orders - LINUS MONCADA MD Ua Culture If Indicated (03/04/20 13:29) Ketorolac Injection (Toradol Injection) (03/04/20 13:30) Acetaminophen Tablet/Caplet (Tylenol T (03/04/20 13:30) Cbc And Manual Diff (03/04/20 13:29) Basic Metabolic Panel (03/04/20 13:29) Medications Given in ED Current Medications Medications Dose Ordered Sig/Emma Route Start Time Stop Time Status Last Admin Dose Admin Acetaminophen 975 mg ONCE ONCE PO 03/04/20 13:30 03/04/20 13:31 DC 03/04/20 13:52 975 MG Ketorolac Tromethamine 60 mg ONCE ONCE IM 03/04/20 13:30 03/04/20 13:31 DC 03/04/20 13:52 60 MG Vital Signs/I&O 03/04/20 13:13 Temp 36.5 Pulse 82 Resp 16 B/P (MAP) 139/75 (96) Pulse Ox 100 Capillary Refill : Less Than 3 Seconds Blood Pressure Mean: 96 Progress Note : Time: 15:00 Progress Note Urinalysis and basic labs generally unremarkable. Patient requires urgent scrotal and testicular ultrasound, not available at this facility or at [facility] today. Given treatment failure of outpatient, even if no acute urologic surgical problems identified, patient may require admission for attention from the urologist. Therefore, we'll transfer to [facility] emergency department where the patient is graciously accepted in transfer by Dr. Lopez. Patient has already had his dose of levofloxacin today so we'll hold off on further antibiotic therapy until ultrasound is obtained. Departure Impression Primary Impression: Testicular/scrotal pain Disposition: XF SHT-TRM HOSP Condition: Stable Transfer Transfer Reason: Exceeds level of care Time Spoke to Accepting Phy: 14:30 Transfer Progress Notes No ultrasound available at this facility or at [facility] today. We'll therefore transfer to a facility with ultrasound coverage and urology coverage available. Patient is graciously accepted in transfer to [facility] by Dr. Lopez. Method of Transfer: EMS Departure-Patient Inst. Referrals: JAROD DURHAM DO (PCP/Family) Primary Care Physician LINUS MONCADA MD Mar 04, 2020 14:59
[2020-03-04] MEDS ORDERED: morphine INJ 10 MG/ML 1ML (SYR OR VIAL) IVP STA (15:08)
[2020-03-04 15:26] VITALS: BP 130/88
== END 2020-03-04 15:34 | disposition short-term general hospital (02) ==
LOC: EDUNIT# 13:08 → ER FS 13:09
DX: N50.82 Scrotal pain (principal); I10 Essential (primary) hypertension; F41.9 Anxiety disorder, unspecified; Z88.0 Allergy status to penicillin; Z88.5 Allergy status to narcotic agent; Z88.8 Allergy status to other drugs, medicaments and biological substances
CPT/HCPCS: 36415; 80048; 81000; 85007; 85027

== ENCOUNTER 2020-04-21 10:11 | Emergency (ER) | payer SELFPAY ==
[~2020-04-21] VITALS: Ht 182.9 cm; Wt 73.4 kg
[~2020-04-21 10:11] MED LIST changes: +HYDR-3812 PO; -HYDR-83 PO
[2020-04-21 10:21] VITALS: BP 132/76
[2020-04-21] MEDS ORDERED: NAPR-1071 PO (10:32)
--- NOTE | 2020-04-21 10:32 | ED Hip Pain/Injury ---
General Chief Complaint: Hip/Pelvic Problems Stated Complaint: RT HIP PAIN Nursing Triage Note: Patient reports he has bone fragments in his right hip that are "floating around" and causing him pain. Patient reports original injury of hip dislocation in 2011. Source: patient Exam Limitations: no limitations History of Present Illness Date Seen by Provider: Apr 21, 2020 Time Seen by Provider: 10:31 Initial Comments 35-year-old male presents with complaint of right hip pain. Denies any recent injury or trauma. 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 States ibuprofen isn't helping and he normally gets Percocet from his primary doctor. Admits he's had his pain for years. Denies history of hip fracture, but allegedly hip dislocation when he was 11 years old. Also states that he has"bone fragment, fluid and tissue floating around in his hip." Allergies and Home Medications Allergies Coded Allergies: Penicillins (Verified Allergy, Mild, 08/27/15) citalopram (Unverified Adverse Reaction, Unknown, 01/10/19) tramadol (Unverified Adverse Reaction, Unknown, 01/10/19) Home Medications Acetaminophen with Codeine 1 Each Tablet, 1-2 EACH PO Q6H PRN for BREAK THRU DENTAL PAIN Prescribed by: BETH SOLANO on 02/09/192053 Clindamycin HCl 150 Mg Capsule, 300 MG PO QID Prescribed by: BETH SOLANO on 02/09/192053 Clindamycin HCl 300 Mg Capsule, 300 MG PO Q8H . Prescribed by: HUANG FRANCO on 08/15/19 1139 Diclofenac Sodium 75 Mg Tablet.dr, 75 MG PO BID Prescribed by: GAIL MAGANA on 12/05/19 0836 Doxycycline Hyclate 100 Mg Tablet, 100 MG PO BID Prescribed by: ELENI CROWELL on 12/01/19 1118 Hydrocodone/Acetaminophen 1 Each Tablet, 1 EACH PO Q6H PRN for PAIN-BREAKTHROUGH Prescribed by: MARIANNA GIBSON on 03/02/202027 Ibuprofen 800 Mg Tablet, 800 MG PO Q8H PRN for PAIN Prescribed by: GAIL GARCIA on 01/10/19 1706 Ibuprofen 800 Mg Tablet, 800 MG PO Q8H PRN for PAIN Prescribed by: MARIANNA GIBSON on 02/04/19 1454 Ibuprofen 800 Mg Tablet, 800 MG PO Q8H PRN for PAIN Prescribed by: ELENI CROWELL on 12/01/19 1118 Levofloxacin 500 Mg Tablet, 500 MG PO DAILY Prescribed by: MARIANNA GIBSON on 03/02/202027 Morphine Sulfate 15 Mg Tablet, 15 MG PO Q8H PRN for PAIN-SEVERE (8-10) Prescribed by: HUANG FRANCO on 08/15/19 1125 Naproxen 500 Mg Tablet, 500 MG PO BID Prescribed by: ELENI CROWELL on 04/21/20 1032 Propranolol HCl 20 Mg Tablet, 20 MG PO DAILY Prescribed by: MARIANNA GIBSON on 02/04/19 1420 Patient Home Medication List Home Medication List Reviewed: Yes Review of Systems Constitutional: No dizziness, No fever, No malaise, No weakness Respiratory: no symptoms reported Cardiovascular: no symptoms reported Gastrointestinal: no symptoms reported Musculoskeletal: see HPI; No back pain; joint pain; No joint swelling, No neck pain Psychiatric/Neurological: Denies Numbness, Denies Paresthesia, Denies Weakness Past Xcpuxkb-Laeiid-Qpkaxi Hx Past Med/Social Hx: Reviewed Nursing Past Med/Soc Hx Patient Social History Alcohol Use: Denies Use Recreational Drug Use: No Type Used: Smokeless Tobacco 2nd Hand Smoke Exposure: No Recent Foreign Travel: No Contact w/Someone Who Travel: No Recent Infectious Disease Expo: No Recent Hopitalizations: No Physical Abuse: No Sexual Abuse: No Mistreated: No Fear: No Immunizations Up To Date Tetanus Booster (TDap): Less than 5yrs Seasonal Allergies Seasonal Allergies: No Past Medical History Surgeries: Yes (WISDOM TOOTH EXTRACTON) Appendectomy Respiratory: No Cardiac: Yes Hypertension Neurological: No Reproductive Disorders: No Genitourinary: No Gastrointestinal: No Musculoskeletal: Yes (hip dislocation and chronic pain) Endocrine: No HEENT: No Cancer: No Psychosocial: Yes Anxiety Integumentary: No Blood Disorders: No Family Medical History No Pertinent Family Hx Physical Exam Vital Signs Vital Signs - First Documented 04/21/20 10:21 Temp 36.8 Pulse 88 Resp 16 B/P (MAP) 132/76 (94) Pulse Ox 99 O2 Delivery Room Air Capillary Refill : Less Than 3 Seconds Height, Weight, BMI Height: 6'0" Weight: 160lbs. oz. 72.647959gb; 21.00 BMI Method:Stated General Appearance: No Apparent Distress, WD/WN Extremity: Normal Capillary Refill, Normal Inspection, Normal Range of Motion, Non Tender, No Calf Tenderness, No Pedal Edema; No Swelling Neurologic/Psychiatric: Alert, No Motor/Sensory Deficits, Normal Mood/Affect Skin: Normal Color, Warm/Dry Progress/Results/Core Measures Results/Orders Vital Signs/I&O 04/21/20 10:21 Temp 36.8 Pulse 88 Resp 16 B/P (MAP) 132/76 (94) Pulse Ox 99 O2 Delivery Room Air Blood Pressure Mean: 94 Departure Impression Primary Impression: Chronic pain Qualified Codes: G89.29 - Other chronic pain Disposition: HOME, SELF-CARE Condition: Stable Departure-Patient Inst. Decision time for Depature: 10:31 Referrals: JAROD DURHAM DO (PCP/Family) Primary Care Physician Patient Instructions: Chronic Pain (DC) Add. Discharge Instructions: See your PCP next week as planned All discharge instructions reviewed with patient and/or family. Voiced understanding. Scripts Naproxen (Naprosyn) 500 Mg Tablet 500 MG PO BID, #30 TAB 0 Refills Prov: ELENI CROWELL DO 04/21/20 ELENI CROWELL DO Apr 21, 2020 10:32
== END 2020-04-21 10:42 | disposition home or self-care (01) ==
LOC: EDUNIT# 10:11 → ER FS 10:13
DX: G89.29 Other chronic pain (principal); I10 Essential (primary) hypertension; Z88.0 Allergy status to penicillin; Z88.5 Allergy status to narcotic agent; Z88.8 Allergy status to other drugs, medicaments and biological substances; Z79.891 Long term (current) use of opiate analgesic
CPT/HCPCS: 99283

== ENCOUNTER 2020-06-27 11:57 | Emergency (ER) | payer SELFPAY ==
[~2020-06-27] VITALS: Ht 182.9 cm; Wt 72.0 kg
[~2020-06-27 11:57] MED LIST changes: +ACHD5005 PO; -HYDR-3812 PO
[2020-06-27] MEDS ORDERED: KETOROLAC 30 MG/ML VIAL IVP ONE (12:15)
[2020-06-27] MEDS ORDERED: CEFEPIME INJECTION 1,000 MG in WATER (STERILE) FOR INJECTION 10 ML IV ONE (12:15)
[2020-06-27] MEDS ORDERED: metroNIDAZOLE 500MG/100ML IVPB 100 ML IV ONE (12:15)
--- NOTE | 2020-06-27 12:23 | ED Integumentary General ---
General Chief Complaint: Skin/Wound Problems Stated Complaint: RASH Nursing Triage Note: Patient reports he has had sores on his hands bilaterally for several days, reports he developed a rash on his hands and arms bilaterally yesterday. Source: patient Exam Limitations: no limitations History of Present Illness Date Seen by Provider: Jun 27, 2020 Time Seen by Provider: 12:10 Initial Comments Patient complains of pustular lesions on both hands that he claims are work related for the last 2 days now he has developed surrounding erythema which is tracking up his arms bilaterally. There is been no fever no chills no vomiting no history of chemical contact his been using topical antibiotic steroid creams and allergy medications but seems to be getting worse. Timing/Duration: other (1-2 days) Severity: mild, moderate Location: hands Possible Cause: no cause identified, other (open sores) Modifying Factors: improves with antihistamine, improves with topical steriods Associated Symptoms: blisters, change in skin texture; No fever, No hives Allergies and Home Medications Allergies Coded Allergies: Penicillins (Verified Allergy, Mild, 08/27/15) citalopram (Unverified Adverse Reaction, Unknown, 01/10/19) tramadol (Unverified Adverse Reaction, Unknown, 01/10/19) Home Medications Acetaminophen with Codeine 1 Each Tablet, 1-2 EACH PO Q6H PRN for BREAK THRU D ENTAL PAIN Prescribed by: BETH SOLANO on 02/09/192053 Clindamycin HCl 150 Mg Capsule, 300 MG PO QID Prescribed by: BETH SOLANO on 02/09/192053 Clindamycin HCl 300 Mg Capsule, 300 MG PO Q8H . Prescribed by: HUANG FRANCO on 08/15/19 1139 Codeine Sulfate 30 Mg Tab, 30 MG PO every 6 hours Prescribed by: DAVID JUÁREZ on 06/27/20 1502 Diclofenac Sodium 75 Mg Tablet.dr, 75 MG PO BID Prescribed by: GAIL MAGANA on 12/05/19 0836 Doxycycline Hyclate 100 Mg Tablet, 100 MG PO BID Prescribed by: ELENI CROWELL on 12/01/19 1118 Doxycycline Hyclate 100 Mg Tablet, 100 MG PO BID Prescribed by: DAVID JUÁREZ on 06/27/20 1502 Hydrocodone/Acetaminophen 1 Each Tablet, 1 EACH PO Q6H PRN for PAIN-BREAKTHROUGH Prescribed by: MARIANNA GIBSON on 03/02/202027 Ibuprofen 800 Mg Tablet, 800 MG PO Q8H PRN for PAIN Prescribed by: GAIL GARCIA on 01/10/19 170 Ibuprofen 800 Mg Tablet, 800 MG PO Q8H PRN for PAIN Prescribed by: MARIANNA GIBSON on 02/04/19 1454 Ibuprofen 800 Mg Tablet, 800 MG PO Q8H PRN for PAIN Prescribed by: ELENI CROWELL on 12/01/19 1118 Levofloxacin 500 Mg Tablet, 500 MG PO DAILY Prescribed by: MARIANNA GIBSON on 03/02/202027 Morphine Sulfate 15 Mg Tablet, 15 MG PO Q8H PRN for PAIN-SEVERE (8-10) Prescribed by: HUANG FRANCO on 08/15/19 112 Mupirocin 22 Gm Oint...g., 22 GM TP TID Prescribed by: DAVID JUÁREZ on 06/27/20 1555 Mupirocin Calcium 15 Gm Cream..g., 1 GM TP TID Apply to infected area on both hands 3 times a day but white cotton gloves on over this for the next 5 days about 1 inch per dose Prescribed by: DAVID JUÁREZ on 06/27/20 1550 Naproxen 500 Mg Tablet, 500 MG PO BID Prescribed by: ELENI CROWELL on 04/21/20 1032 Propranolol HCl 20 Mg Tablet, 20 MG PO DAILY Prescribed by: MARIANNA GIBSON on 02/04/19 1420 Patient Home Medication List Home Medication List Reviewed: Yes Review of Systems Review of Systems Constitutional: no symptoms reported, see HPI EENTM: no symptoms reported Respiratory: no symptoms reported Cardiovascular: no symptoms reported Genitourinary: no symptoms reported Musculoskeletal: see HPI, other (bilateral hand pain) Skin: see HPI Psychiatric/Neurological: Anxiety Past Isxnhuk-Jfcvbk-Cdypzw Hx Past Med/Social Hx: Reviewed Nursing Past Med/Soc Hx Patient Social History Type Used: Smokeless Tobacco 2nd Hand Smoke Exposure: No Recent Foreign Travel: No Contact w/Someone Who Travel: No Recent Infectious Disease Expo: No Recent Hopitalizations: No Immunizations Up To Date Tetanus Booster (TDap): Less than 5yrs Seasonal Allergies Seasonal Allergies: No Past Medical History Surgeries: Yes (WISDOM TOOTH EXTRACTON) Appendectomy Respiratory: No Cardiac: Yes Hypertension Neurological: No Reproductive Disorders: No Genitourinary: No Gastrointestinal: No Musculoskeletal: Yes (hip dislocation and chronic pain) Endocrine: No HEENT: No Cancer: No Psychosocial: Yes Anxiety Integumentary: No Blood Disorders: No Family Medical History No Pertinent Family Hx Physical Exam Vital Signs Vital Signs - First Documented 06/27/20 12:08 Temp 37.1 Pulse 92 Resp 18 B/P (MAP) 142/105 (117) Pulse Ox 99 O2 Delivery Room Air Capillary Refill : Less Than 3 Seconds General Appearance: WD/WN, no apparent distress HEENT: normal ENT inspection, pharynx normal Neck: non-tender, full range of motion, supple, normal inspection Cardiovascular: regular rate, rhythm, no edema Respiratory: chest non-tender, lungs clear, normal breath sounds Gastrointestinal: normal bowel sounds, non tender, soft Back: normal inspection Extremities: other (bilateral hands with erythema predominantly on the radial side MCP joint #2 radiating up the arm with multiple open vesicular type ulcerative wounds. 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5 % Platelet Count 288 130-400 10^3/uL Mean Platelet Volume 9.1 7.4-10.4 FL Sodium Level 138 135-145 MMOL/L Potassium Level 3.8 3.6-5.0 MMOL/L Chloride Level 102 98-107 MMOL/L Carbon Dioxide Level 25 21-32 MMOL/L Anion Gap 11 5-14 MMOL/L Blood Urea Nitrogen 9 7-18 MG/DL Creatinine 0.77 0.60-1.30 MG/DL Estimat Glomerular Filtration Rate > 60 BUN/Creatinine Ratio 12 Glucose Level 142 H 70-105 MG/DL Lactic Acid Level 2.89 *H 1.48 0.50-2.00 MMOL/L Calcium Level 8.5 8.5-10.1 MG/DL Corrected Calcium 8.8 8.5-10.1 MG/DL Total Bilirubin 0.2 0.1-1.0 MG/DL Aspartate Amino Transf (AST/SGOT) 51 H 5-34 U/L Alanine Aminotransferase (ALT/SGPT) 55 0-55 U/L Alkaline Phosphatase 38 L 40-136 U/L Total Protein 6.3 L 6.4-8.2 GM/DL Albumin 3.6 3.2-4.5 GM/DL My Orders Orders - DAVID JUÁREZ DO Cefepime Injection (Maxipime Injection) (06/27/20 12:15) Metronidazole 500mg/100ml Ivpb (Flagyl 5 (06/27/20 12:15) Cbc No Diff (06/27/20 12:04) Wound Culture (06/27/20 12:04) Lactic Acid Analyzer (06/27/20 12:04) Ed Iv/Invasive Line Start (06/27/20 12:04) Ketorolac Injection (Toradol Injection) (06/27/20 12:15) Comprehensive Metabolic Panel (06/27/20 13:19) Blood Culture (06/27/20 13:19) Ns Iv 1000 Ml (Sodium Chloride 0.9%) (06/27/20 13:30) Fentanyl Injection (Sublimaze Injection (06/27/20 14:00) Lactic Acid Analyzer (06/27/20 14:55) Medications Given in ED Current Medications Medications Dose Ordered Sig/Emma Route Start Time Stop Time Status Last Admin Dose Admin Cefepime HCl 1000 mg/Sterile Water 10 ml @ 200 mls/hr ONCE ONCE IV 06/27/20 12:15 06/27/20 12:18 DC 06/27/20 12:35 200 MLS/HR Fentanyl Citrate 50 mcg ONCE ONCE IVP 06/27/20 14:00 06/27/20 14:01 DC 06/27/20 14:10 50 MCG Ketorolac Tromethamine 30 mg ONCE ONCE IVP 06/27/20 12:15 06/27/20 12:18 DC 06/27/20 12:35 30 MG Metronidazole 100 ml @ 100 mls/hr ONCE ONCE IV 06/27/20 12:15 06/27/20 13:14 DC 06/27/20 12:35 100 MLS/HR Sodium Chloride 2,160 ml @ 2,160 mls/hr ONCE ONCE IV 06/27/20 13:30 06/27/20 14:29 DC 06/27/20 13:40 2,160 MLS/HR Vital Signs/I&O 06/27/20 06/27/20 06/27/20 12:08 13:41 16:06 Temp 37.1 36.5 Pulse 92 74 69 Resp 18 14 B/P (MAP) 142/105 (117) 124/71 95/66 Pulse Ox 99 98 98 O2 Delivery Room Air Room Air Room Air Blood Pressure Mean: 117 Critical Care Note Critical Care Total Time (minutes) Patient with several days of increasing erythema and discomfort in bilateral hands he's been self treating his multiple scattered pustular wounds. Differential most likely MRSA not likely of erysipelas due to open pustular wounds. Plan will be sepsis screening IV antibiotics flaps are normal no evidence of Sirs oral antibiotics and outpatient follow-up. Departure Impression Primary Impression: Cellulitis Disposition: HOME, SELF-CARE Condition: Improved Departure-Patient Inst. Referrals: JAROD DURHAM DO (PCP/Family) Primary Care Physician Friday for recheck Patient Instructions: MRSA (DC), Methicillin-Resistant Staphylococcus aureus (MRSA), Cellulitis (Skin Infection), Child (DC), Cellulitis (Skin Infection), Adult (DC) Scripts Mupirocin (Mupirocin) 22 Gm Oint...g. 22 GM TP TID for Rash, #1 TUBE 1 Refill Prov: DAVID JUÁREZ DO 06/27/20 Mupirocin Calcium (Mupirocin) 15 Gm Cream..g. 1 GM TP TID for Rash MDD 3 for 5 Days, #15 TUBE 1 Refill Apply to infected area on both hands 3 times a day but white cotton gloves on over this for the next 5 days about 1 inch per dose Prov: DAVID JUÁREZ DO 06/27/20 Codeine Sulfate (Codeine Sulfate) 30 Mg Tab 30 MG PO every 6 hours for Pain for 2 Days, #10 TAB 0 Refills Prov: DAVID JUÁRZE DO 06/27/20 Doxycycline Hyclate (Doxycycline Hyclate) 100 Mg Tablet 100 MG PO BID, #20 TAB 0 Refills Prov: DAVID JUÁREZ DO 06/27/20 DAVID JUÁREZ DO Jun 27, 2020 12:23
[2020-06-27 12:43] LABS: HEMOGLOBIN 12.7 G/DL (13.3-17.7); MEAN PLATELET VOLUME 9.1 FL (7.4-10.4); WHITE BLOOD COUNT 6.6 10^3/uL (4.3-11.0)
[2020-06-27] MEDS ORDERED: NS IV ONE (13:30)
[2020-06-27 13:49] LABS: ALANINE AMINOTRANSFERASE 55 U/L (0-55); ALBUMIN 3.6 GM/DL (3.2-4.5); ALKALINE PHOSPHATASE 38 U/L (40-136); BILIRUBIN,TOTAL 0.2 MG/DL (0.1-1.0); BUN/CREATININE RATIO 12; CALCIUM 8.5 MG/DL (8.5-10.1); CARBON DIOXIDE 25 MMOL/L (21-32); CHLORIDE 102 MMOL/L (98-107); CREATININE SERUM 0.77 MG/DL (0.60-1.30); GFR ESTIMATED > 60; GLUCOSE 142 MG/DL (70-105); POTASSIUM 3.8 MMOL/L (3.6-5.0); SODIUM 138 MMOL/L (135-145); TOTAL PROTEIN 6.3 GM/DL (6.4-8.2)
[2020-06-27] MEDS ORDERED: fentaNYL INJECTION 100 MCG/2 ML AMP IVP ONE (14:00)
[2020-06-27] MEDS ORDERED: [UNRECOGNIZED DRUG - CODE] PO (15:02)
[2020-06-27] MEDS ORDERED: DOXY100T2 PO (15:02)
[2020-06-27] MEDS ORDERED: MUPI15CR11 TP (15:50)
[2020-06-27] MEDS ORDERED: MUPI22OI2 TP (15:53)
[2020-06-27 16:06] VITALS: BP 95/66
== END 2020-06-27 16:06 | disposition home or self-care (01) ==
LOC: EDUNIT# 11:57 → ER FS 11:58
DX: L03.114 Cellulitis of left upper limb (principal); L03.113 Cellulitis of right upper limb; I10 Essential (primary) hypertension; Z88.0 Allergy status to penicillin; Z88.5 Allergy status to narcotic agent; Z88.8 Allergy status to other drugs, medicaments and biological substances
CPT/HCPCS: 36415; 80053; 83605; 85027; 87040; 87070; 87205

== ENCOUNTER 2020-06-29 08:52 | Emergency (ER) | payer SELFPAY ==
[~2020-06-29] VITALS: Ht 182 cm; Wt 80.0 kg
[~2020-06-29 08:52] MED LIST changes: +MUPI15CR11 TP; +MUPI22OI2 TP; +[UNRECOGNIZED DRUG - CODE] PO
[2020-06-29 08:59] VITALS: BP 144/79
--- NOTE | 2020-06-29 08:59 | ED Integumentary General ---
General Chief Complaint: Skin/Wound Problems Stated Complaint: RASH Source: patient Exam Limitations: no limitations History of Present Illness Date Seen by Provider: Jun 29, 2020 Time Seen by Provider: 08:59 Initial Comments 35-year-old male presents with rash. Patient rash started approximately 5 days ago. It's macular papular that started on her hands when up the arms. Patient was seen 2 days ago in this ER that time a infectious workup was obtained and was negative. At that time the rash was described as pustular started as pustular rashes moved up the arm. Today there is no pustules. Patient however states it's exactly the same however chart review states it was more pustular wears today is more macular papular with no pustules. There are areas on the bilateral hands and wrists that were consistent with abscesses that have resolved. Patient reports he called his primary care provider and was told there was nothing they could do. Patient was started on mupirocin and, doxycycline. Patient was given 6 pills of pain medication that he reports he never filled. Patient is asking for something for pain here in the ER. No reports of fevers or chills. Allergies and Home Medications Allergies Coded Allergies: Penicillins (Verified Allergy, Mild, 08/27/15) citalopram (Unverified Adverse Reaction, Unknown, 01/10/19) tramadol (Unverified Adverse Reaction, Unknown, 01/10/19) Home Medications Acetaminophen with Codeine 1 Each Tablet, 1-2 EACH PO Q6H PRN for BREAK THRU DENTAL PAIN Prescribed by: BETH SOLANO on 02/09/192053 Clindamycin HCl 150 Mg Capsule, 300 MG PO QID Prescribed by: BETH SOLANO on 02/09/192053 Clindamycin HCl 300 Mg Capsule, 300 MG PO Q8H . Prescribed by: HUANG FRANCO on 08/15/19 1139 Codeine Sulfate 30 Mg Tab, 30 MG PO every 6 hours Prescribed by: DAVID JUÁREZ on 06/27/20 1502 Diclofenac Sodium 75 Mg Tablet.dr, 75 MG PO BID Prescribed by: GAIL MAGANA on 12/05/19 0836 Doxycycline Hyclate 100 Mg Tablet, 100 MG PO BID Prescribed by: ELENI CROWELL on 12/01/19 1118 Doxycycline Hyclate 100 Mg Tablet, 100 MG PO BID Prescribed by: DAVID JUÁREZ on 06/27/20 1502 Hydrocodone/Acetaminophen 1 Each Tablet, 1 EACH PO Q6H PRN for PAIN-BREAKTHROUGH Prescribed by: MARIANNA GIBSON on 03/02/202027 Ibuprofen 800 Mg Tablet, 800 MG PO Q8H PRN for PAIN Prescribed by: GAIL GARCIA on 01/10/19 1706 Ibuprofen 800 Mg Tablet, 800 MG PO Q8H PRN for PAIN Prescribed by: MARIANNA GIBSON on 02/04/19 1454 Ibuprofen 800 Mg Tablet, 800 MG PO Q8H PRN for PAIN Prescribed by: ELENI CROWELL on 12/01/19 1118 Levofloxacin 500 Mg Tablet, 500 MG PO DAILY Prescribed by: MARIANNA GIBSON on 03/02/202027 Morphine Sulfate 15 Mg Tablet, 15 MG PO Q8H PRN for PAIN-SEVERE (8-10) Prescribed by: HUANG FRANCO on 08/15/19 112 Mupirocin 22 Gm Oint...g., 22 GM TP TID Prescribed by: DAVID JUÁREZ on 06/27/20 1555 Mupirocin Calcium 15 Gm Cream..g., 1 GM TP TID Apply to infected area on both hands 3 times a day but white cotton gloves on over this for the next 5 days about 1 inch per dose Prescribed by: DAVID JUÁREZ on 06/27/20 1550 Naproxen 500 Mg Tablet, 500 MG PO BID Prescribed by: ELENI CROWELL on 04/21/20 1032 Propranolol HCl 20 Mg Tablet, 20 MG PO DAILY Prescribed by: MARIANNA GIBSON on 02/04/19 1420 Patient Home Medication List Home Medication List Reviewed: Yes Review of Systems Review of Systems Constitutional: No chills, No fever EENTM: see HPI Respiratory: No cough, No short of breath Cardiovascular: No chest pain, No palpitations Gastrointestinal: no symptoms reported; No diarrhea, No nausea, No vomiting Musculoskeletal: no symptoms reported Skin: see HPI Psychiatric/Neurological: No Symptoms Reported Endocrine: No Symptoms Reported Past Adwbxvz-Avsefy-Twgsjt Hx Past Med/Social Hx: Reviewed Nursing Past Med/Soc Hx Patient Social History Alcohol Use: Denies Use Recreational Drug Use: No Smoking Status: Current Everyday Smoker Type Used: Cigarettes, Smokeless Tobacco 2nd Hand Smoke Exposure: No Recent Foreign Travel: No Contact w/Someone Who Travel: No Recent Hopitalizations: No Physical Abuse: No Sexual Abuse: No Mistreated: No Fear: No Immunizations Up To Date Tetanus Booster (TDap): Less than 5yrs Seasonal Allergies Seasonal Allergies: No Past Medical History Surgeries: Yes (WISDOM TOOTH EXTRACTON) Appendectomy Respiratory: No Cardiac: Yes Hypertension Neurological: No Reproductive Disorders: No Genitourinary: No Gastrointestinal: No Musculoskeletal: Yes (hip dislocation and chronic pain) Endocrine: No HEENT: No Cancer: No Psychosocial: Yes Anxiety Integumentary: No (Cellulitis) Recent Skin Changes Blood Disorders: No Family Medical History No Pertinent Family Hx Physical Exam Vital Signs Vital Signs - First Documented 06/29/20 08:59 Temp 36.0 Pulse 98 Resp 18 B/P (MAP) 144/79 (100) Pulse Ox 98 O2 Delivery Room Air Capillary Refill : General Appearance: no apparent distress HEENT: PERRL/EOMI, normal ENT inspection Neck: full range of motion, supple Cardiovascular: normal peripheral pulses, regular rate, rhythm Respiratory: lungs clear, normal breath sounds Gastrointestinal: non tender, soft Extremities: normal range of motion, non-tender, normal inspection Neurologic/Psychiatric: alert, normal mood/affect, oriented x 3 Skin Problem Location: other (hands and bilateral forearms) Skin Problem Character: other (macular papular rash including papular's on the palm of the hand, old healing abscesses. No pustules at this time) Progress/Results/Core Measures Results/Orders My Orders Orders - HUANG FRANCO DO Dexamethasone Injection (Decadron Inje (06/29/20 09:15) Ketorolac Injection (Toradol Injection) (06/29/20 09:05) Medications Given in ED Current Medications Medications Dose Ordered Sig/Emma Route Start Time Stop Time Status Last Admin Dose Admin Dexamethasone Sodium Phosphate 10 mg ONCE ONCE IM 06/29/20 09:15 06/29/20 09:16 06/29/20 09:13 10 MG Vital Signs/I&O 06/29/20 08:59 Temp 36.0 Pulse 98 Resp 18 B/P (MAP) 144/79 (100) Pulse Ox 98 O2 Delivery Room Air Progress Progress Note : Time: 09:16 Progress Note I will provide the patient a steroid shot along with a Medrol Dosepak. Patient is currently on doxycycline which would cover any infectious MRSA or tickborne illness. Patient should follow-up with her primary care provider in 1-2 days with a possible dermatology consult if symptoms are not improving Departure Impression Primary Impression: Cellulitis Qualified Codes: L03.119 - Cellulitis of unspecified part of limb Additional Impression: Dermatitis Disposition: HOME, SELF-CARE Condition: Stable Departure-Patient Inst. Referrals: JAROD DURHAM DO (PCP/Family) Primary Care Physician Patient Instructions: Bacterial Folliculitis (DC), Cellulitis (Skin Infection), Adult (DC), Dermatitis Add. Discharge Instructions: Follow-up with your primary care provider in 1-2 days for recheck in today symptoms and dermatology consult if symptoms are not improving Emergency department focuses on treating and ruling out life-threatening diseases. Whenever possible, a diagnosis is given. However, most patients are given an impression based on their history, physical exam, and workup during your brief time in the ER. Information about probable diagnosis and other educational material has been provided. Please take the time to read and understand this information. It is very important that you follow up with a physician as discussed during the visit today. Failure to adhere to your follow-up instructions may lead to severe disability, injury, or so please make sure to keep your appointments or obtain one as requested. Please keep in mind the emergency department is not designed to your primary care or "family doctor" and nonurgent issues are best evaluated by an outpatient physician All discharge instructions reviewed with patient and/or family. Voiced u nderstanding. Scripts Methylprednisolone (Methylprednisolone Dose Pack) 4 Mg Tablet 4 MG PO UD for 6 Days, #21 TAB FOLLOW DOSE PACK INSTRUCTIONS Prov: HUANG FRANCO DO 06/29/20 HUANG FRANCO DO Jun 29, 2020 08:59
[2020-06-29] MEDS ORDERED: KETOROLAC 60 MG/2 ML VIAL IM STA (09:05)
[2020-06-29] MEDS ORDERED: METH4TAB11 PO (09:20)
== END 2020-06-29 09:21 | disposition home or self-care (01) ==
LOC: EDUNIT# 08:52 → ER FS 08:53
DX: L03.114 Cellulitis of left upper limb (principal); L03.113 Cellulitis of right upper limb; L30.8 Other specified dermatitis; I10 Essential (primary) hypertension; F17.210 Nicotine dependence, cigarettes, uncomplicated; F17.290 Nicotine dependence, other tobacco product, uncomplicated; Z88.0 Allergy status to penicillin; Z88.8 Allergy status to other drugs, medicaments and biological substances; Z88.5 Allergy status to narcotic agent
CPT/HCPCS: 99284

== ENCOUNTER 2020-09-30 11:35 | Emergency (ER) | payer SELFPAY ==
[~2020-09-30 11:35] MED LIST changes: -CLIN150C17 PO; +CLIN150C18 PO; -CLIN300C11 PO; +CLIN300C12 PO; +METH4TAB11 PO
--- NOTE | 2020-09-30 12:08 | ED Upper Extremity ---
General Chief Complaint: Upper Extremity Stated Complaint: RT HAND INJ Source: patient Exam Limitations: no limitations History of Present Illness Date Seen by Provider: Sep 30, 2020 Time Seen by Provider: 11:50 Initial Comments 35-year-old male presents with right hand pain since yesterday. States he put all of his weight on his right hand and "flipped his body over" feeling a pop sensation in the back of his right hand/wrist. Now with pain inability to move. Denies previous occurrence of similar injury. Has taken nothing for pain, but asking for pain medication. Allergies and Home Medications Allergies Coded Allergies: Penicillins (Verified Allergy, Mild, 08/27/15) citalopram (Unverified Adverse Reaction, Unknown, 01/10/19) tramadol (Unverified Adverse Reaction, Unknown, 01/10/19) Home Medications Acetaminophen with Codeine 1 Each Tablet, 1-2 EACH PO Q6H PRN for BREAK THRU DENTAL PAIN Prescribed by: BEHT SOLANO on 02/09/192053 Clindamycin HCl 150 Mg Capsule, 300 MG PO QID Prescribed by: BETH SOLANO on 02/09/192053 Clindamycin HCl 300 Mg Capsule, 300 MG PO Q8H . Prescribed by: HUANG FRANCO on 08/15/19 1139 Codeine Sulfate 30 Mg Tab, 30 MG PO every 6 hours Prescribed by: DAVID JUÁREZ on 06/27/20 1502 Diclofenac Sodium 75 Mg Tablet.dr, 75 MG PO BID Prescribed by: GAIL MAGANA on 12/05/19 0836 Doxycycline Hyclate 100 Mg Tablet, 100 MG PO BID Prescribed by: ELENI CROWELL on 12/01/19 1118 Doxycycline Hyclate 100 Mg Tablet, 100 MG PO BID Prescribed by: DAVID JUÁREZ on 06/27/20 1502 Hydrocodone/Acetaminophen 1 Each Tablet, 1 EACH PO Q6H PRN for PAIN-BREAKTHROUGH Prescribed by: MARIANNA GIBSON on 03/02/202027 Ibuprofen 800 Mg Tablet, 800 MG PO Q8H PRN for PAIN Prescribed by: GAIL GARCIA on 01/10/19 1706 Ibuprofen 800 Mg Tablet, 800 MG PO Q8H PRN for PAIN Prescribed by: MARIANNA GIBSON on 02/04/19 1454 Ibuprofen 800 Mg Tablet, 800 MG PO Q8H PRN for PAIN Prescribed by: ELENI CROWELL on 12/01/19 1118 Levofloxacin 500 Mg Tablet, 500 MG PO DAILY Prescribed by: MARIANNA GIBSON on 03/02/202027 Methylprednisolone 4 Mg Tablet, 4 MG PO UD FOLLOW DOSE PACK INSTRUCTIONS Prescribed by: HUANG FRANCO on 06/29/20 0920 Morphine Sulfate 15 Mg Tablet, 15 MG PO Q8H PRN for PAIN-SEVERE (8-10) Prescribed by: HUANG FRANCO on 08/15/19 1125 Mupirocin 22 Gm Oint...g., 22 GM TP TID Prescribed by: DAVID JUÁREZ on 06/27/20 1555 Mupirocin Calcium 15 Gm Cream..g., 1 GM TP TID Apply to infected area on both hands 3 times a day but white cotton gloves on over this for the next 5 days about 1 inch per dose Prescribed by: DAVID JUÁREZ on 06/27/20 1550 Naproxen 500 Mg Tablet, 500 MG PO BID Prescribed by: ELENI CROWELL on 04/21/20 1032 Naproxen 500 Mg Tablet, 500 MG PO BID Prescribed by: ELENI CROWELL on 09/30/20 1248 Propranolol HCl 20 Mg Tablet, 20 MG PO DAILY Prescribed by: MARIANNA GIBSON on 02/04/19 1420 Patient Home Medication List Home Medication List Reviewed: Yes Review of Systems Constitutional: No fever, No malaise, No weakness Musculoskeletal: see HPI, other (R hand pain/ wrist pain) Past Yblrewl-Tomntc-Beksvw Hx Past Med/Social Hx: Reviewed Nursing Past Med/Soc Hx Patient Social History Type Used: Cigarettes, Smokeless Tobacco 2nd Hand Smoke Exposure: No Recent Hopitalizations: No Immunizations Up To Date Tetanus Booster (TDap): Less than 5yrs Seasonal Allergies Seasonal Allergies: No Past Medical History Surgeries: Yes (WISDOM TOOTH EXTRACTON) Appendectomy Respiratory: No Cardiac: Yes Hypertension Neurological: No Reproductive Disorders: No Genitourinary: No Gastrointestinal: No Musculoskeletal: Yes (hip dislocation and chronic pain) Endocrine: No HEENT: No Cancer: No Psychosocial: Yes Anxiety Integumentary: No (Cellulitis) Recent Skin Changes Blood Disorders: No Family Medical History No Pertinent Family Hx Physical Exam Vital Signs Vital Signs - First Documented 09/30/20 11:44 Temp 36.9 Pulse 79 Resp 18 B/P (MAP) 133/80 (97) Pulse Ox 100 Capillary Refill : Height, Weight, BMI Height: 6'0" Weight: 160lbs. oz. [id number]; 24.00 BMI Method:Stated General Appearance: WD/WN, no apparent distress Shoulder: normal inspection, non-tender, no evidence of injury Elbow/Forearm: normal inspection, non-tender, no evidence of injury, normal ROM, Right Wrist: Yes asymmetry, Yes bone tenderness, Yes deformity, Yes limited ROM Hand: Right, asymmetry, bone tenderness, deformity (edema- dorsum proximal hand), limited ROM, swelling Neurologic/Tendon: No motor deficit, No sensory deficit Neurologic/Psychiatric: no motor/sensory deficits, alert Skin: normal color, warm/dry Progress/Results/Core Measures Results/Orders My Orders Orders - ELENI CROWELL DO Hand 3 View Right (09/30/20 11:58) Wrist 3 View Right (09/30/20 11:58) Vital Signs/I&O 09/30/20 09/30/20 11:44 12:49 Temp 36.9 36.9 Pulse 79 75 Resp 18 18 B/P (MAP) 133/80 (97) 130/75 (97) Pulse Ox 100 100 Progress Progress Note : Progress Note placed in metal volar splint of right wrist. good cap refill and sensation. Diagnostic Imaging Diagonstic Imaging: Xray Plain Films/CT/US/NM/MRI: hand (and wrist) Comments no acute findings for either Hand or Wrist films per RAD. No definitive area that I could over-rule RAD reading. Departure Impression Primary Impression: Right wrist sprain Qualified Codes: S63.501A - Unspecified sprain of right wrist, initial encounter Disposition: HOME, SELF-CARE Condition: Improved Departure-Patient Inst. Decision time for Depature: 12:38 Referrals: MELANIE COFFEY APRN (PCP) Primary Care Physician [facility] (Family) Primary Care Physician RADHA WAGNER MD Patient Instructions: Wrist Sprain (DC) Add. Discharge Instructions: Call Dr Wagner's office to schedule a follow up appointment in [place] in 1-2 weeks. All discharge instructions reviewed with patient and/or family. Voiced understan ding. Scripts Naproxen (Naprosyn) 500 Mg Tablet 500 MG PO BID, #30 TAB 0 Refills Prov: ELENI CROWELL DO 09/30/20 ELENI CROWELL DO Sep 30, 2020 12:08
--- NOTE | 2020-09-30 12:40 | Diagnostic Imaging Report ---
INDICATION: Generalized right hand and wrist pain. Patient injured his hand felt a pop. FINDINGS: 3 views of the right hand demonstrates no fracture or dislocation. IMPRESSION: Negative right hand. Dictated by: Dictated on workstation # [id number]
--- NOTE | 2020-09-30 12:41 | Diagnostic Imaging Report ---
INDICATION: Right hand and wrist injury. Patient felt a pop when he injured it. Previous fracture of the right hand. FINDINGS: 3 views of the right wrist demonstrates no fracture or dislocation. No foreign bodies are present. IMPRESSION: Negative right wrist. Dictated by: Dictated on workstation # [id number]
[2020-09-30] MEDS ORDERED: NAPR-1071 PO (12:48)
[2020-09-30 12:49] VITALS: BP 130/75
== END 2020-09-30 12:51 | disposition home or self-care (01) ==
LOC: EDUNIT# 11:35 → ER FS 11:37
DX: S63.501A Unspecified sprain of right wrist, initial encounter (principal); I10 Essential (primary) hypertension; Z88.0 Allergy status to penicillin; Z88.5 Allergy status to narcotic agent; Z88.8 Allergy status to other drugs, medicaments and biological substances; Z79.52 Long term (current) use of systemic steroids; X50.0XXA Overexertion from strenuous movement or load, initial encounter
CPT/HCPCS: 73110; 73130

== ENCOUNTER 2020-11-10 11:12 | Emergency (ER) | payer SELFPAY ==
--- NOTE | 2020-11-10 11:29 | ED EENT ---
History of Present Illness General Chief Complaint: Ear Problems Stated Complaint: EARACHE History of Present Illness Date Seen by Provider: Nov 10, 2020 Time Seen by Provider: 11:24 Initial Comments 35-year-old male presents with left-sided ear pain for a couple days. Reports that the pain is getting worse. Denies any fevers chills or other systemic complaints. Reports that he has been putting in earwax softener in it for about 5 days. No nausea, vomiting, throat pain Allergies and Home Medications Allergies Coded Allergies: Penicillins (Verified Allergy, Mild, 08/27/15) citalopram (Unverified Adverse Reaction, Unknown, 01/10/19) tramadol (Unverified Adverse Reaction, Unknown, 01/10/19) Home Medications Acetaminophen with Codeine 1 Each Tablet, 1-2 EACH PO Q6H PRN for BREAK THRU DENTAL PAIN Prescribed by: BETH SOLANO on 02/09/192053 Ciprofloxacin HCl/Dexameth 7.5 Ml Soln, 4 DROPS OT BID Prescribed by: HUANG FRANCO on 11/10/20 1301 Clindamycin HCl 150 Mg Capsule, 300 MG PO QID Prescribed by: BETH SOLANO on 02/09/192053 Clindamycin HCl 300 Mg Capsule, 300 MG PO Q8H . Prescribed by: HUANG FRANCO on 08/15/19 1139 Codeine Sulfate 30 Mg Tab, 30 MG PO every 6 hours Prescribed by: DAVID JUÁREZ on 06/27/20 150 Diclofenac Sodium 75 Mg Tablet.dr, 75 MG PO BID Prescribed by: GAIL MAGANA on 12/05/19 0836 Doxycycline Hyclate 100 Mg Tablet, 100 MG PO BID Prescribed by: ELENI CROWELL on 12/01/19 1118 Doxycycline Hyclate 100 Mg Tablet, 100 MG PO BID Prescribed by: DAVID JUÁREZ on 06/27/20 1502 Hydrocodone/Acetaminophen 1 Each Tablet, 1 EACH PO Q6H PRN for PAIN-BREAKTHROUGH Prescribed by: MARIANNA GIBSON on 03/02/202027 Hydrocodone/Acetaminophen 1 Each Tablet, 1 TAB PO Q8H PRN for PAIN-MODERATE (5- 7) Prescribed by: HUANG FRANCO on 11/10/20 1302 Ibuprofen 800 Mg Tablet, 800 MG PO Q8H PRN for PAIN Prescribed by: GAIL GARCIA on 01/10/19 1706 Ibuprofen 800 Mg Tablet, 800 MG PO Q8H PRN for PAIN Prescribed by: MARIANNA GIBSON on 02/04/19 1454 Ibuprofen 800 Mg Tablet, 800 MG PO Q8H PRN for PAIN Prescribed by: ELENI CROWELL on 12/01/19 1118 Levofloxacin 500 Mg Tablet, 500 MG PO DAILY Prescribed by: MARIANNA GIBSON on 03/02/20 2028 Methylprednisolone 4 Mg Tablet, 4 MG PO UD FOLLOW DOSE PACK INSTRUCTIONS Prescribed by: HUANG FRANCO on 06/29/20 0920 Morphine Sulfate 15 Mg Tablet, 15 MG PO Q8H PRN for PAIN-SEVERE (8-10) Prescribed by: HUANG FRANCO on 08/15/19 1125 Mupirocin 22 Gm Oint...g., 22 GM TP TID Prescribed by: DAVID JUÁREZ on 06/27/20 1555 Mupirocin Calcium 15 Gm Cream..g., 1 GM TP TID Apply to infected area on both hands 3 times a day but white cotton gloves on over this for the next 5 days about 1 inch per dose Prescribed by: DAVID JUÁREZ on 06/27/20 1550 Naproxen 500 Mg Tablet, 500 MG PO BID Prescribed by: ELENI CROWELL on 04/21/20 1032 Naproxen 500 Mg Tablet, 500 MG PO BID Prescribed by: ELENI CROWELL on 09/30/20 1248 Propranolol HCl 20 Mg Tablet, 20 MG PO DAILY Prescribed by: MARIANNA GIBSON on 02/04/19 1420 Patient Home Medication List Home Medication List Reviewed: Yes Review of Systems Review of Systems Constitutional: No chills, No fever Eyes: No Symptoms Reported Ears: See HPI Nose: no symptoms reported Mouth: no symptoms reported Throat: denies pain Respiratory: No cough, No short of breath Cardiovascular: No chest pain, No palpitations Past Dazminw-Yiouzb-Fscwgk Hx Past Med/Social Hx: Reviewed Nursing Past Med/Soc Hx Patient Social History Type Used: Cigarettes, Smokeless Tobacco 2nd Hand Smoke Exposure: No Recent Hopitalizations: No Immunizations Up To Date Tetanus Booster (TDap): Less than 5yrs Seasonal Allergies Seasonal Allergies: No Past Medical History Surgeries: Yes (WISDOM TOOTH EXTRACTON) Appendectomy Respiratory: No Cardiac: Yes Hypertension Neurological: No Reproductive Disorders: No Genitourinary: No Gastrointestinal: No Musculoskeletal: Yes (hip dislocation and chronic pain) Endocrine: No HEENT: No Cancer: No Psychosocial: Yes Anxiety Integumentary: No (Cellulitis) Recent Skin Changes Blood Disorders: No Family Medical History No Pertinent Family Hx Physical Exam Vital Signs Vital Signs - First Documented 11/10/20 11:25 Temp 36.6 Pulse 75 Resp 16 B/P (MAP) 142/78 (99) Pulse Ox 99 Height, Weight, BMI Height: 6'0" Weight: 160lbs. oz. 72.113135bp; 24.00 BMI Method:Stated General Appearance: mild distress Ears: left ear other (Significant cerumen impaction) Nose: normal inspection Mouth/Throat: normal mouth inspection Neck: full range of motion, supple Cardiovascular: normal peripheral pulses, regular rate, rhythm Respiratory: chest non-tender, lungs clear Skin: normal color, warm/dry Progress/Results/Core Measures Results/Orders My Orders Orders - HUANG FRANCO DO Ketorolac Injection (Toradol Injection) (11/10/20 12:00) Medications Given in ED Current Medications Medications Dose Ordered Sig/Emma Route Start Time Stop Time Status Last Admin Dose Admin Ketorolac Tromethamine 30 mg ONCE ONCE IM 11/10/20 12:00 11/10/20 12:01 DC 11/10/20 12:09 30 MG Vital Signs/I&O 11/10/20 11:25 Temp 36.6 Pulse 75 Resp 16 B/P (MAP) 142/78 (99) Pulse Ox 99 Departure Impression Primary Impression: Otitis media Qualified Codes: H65.92 - Unspecified nonsuppurative otitis media, left ear Additional Impression: Impacted cerumen Qualified Codes: H61.22 - Impacted cerumen, left ear Disposition: HOME, SELF-CARE Condition: Stable Departure-Patient Inst. Referrals: MELANIE COFFEY APRN (PCP) Primary Care Physician [facility] [place] Primary Care Physician RADHA GEORGE MD Patient Instructions: DR. GEORGE-[facility], Ear Infection ED, Ear Wax Impaction (DC) Add. Discharge Instructions: Please make an appointment with ENT for recheck of your symptoms next week if possible. If unable to see ENT please follow-up with your primary care provider for a recheck All discharge instructions reviewed with patient and/or family. Voiced understanding. Scripts Hydrocodone/Acetaminophen (Hydrocodone-Acetamin 5-325 mg) 1 Each Tablet 1 TAB PO Q8H PRN for PAIN-MODERATE (5-7), #5 TAB Prov: HUANG FRANCO DO 11/10/20 Ciprofloxacin HCl/Dexameth (Ciprodex Otic Suspension) 7.5 Ml Soln 4 DROPS OT BID, #1 EA Prov: HUANG FRANCO DO 11/10/20 Copy Copies To 1: RADHA GEORGE MD, TREVOR L DO Nov 10, 2020 11:29
[2020-11-10] MEDS ORDERED: KETOROLAC 30 MG/ML VIAL IM ONE (12:00)
[2020-11-10] MEDS ORDERED: ACHD5005 PO (13:01)
[2020-11-10] MEDS ORDERED: NF-CIPDEC OT (13:01)
[2020-11-10 13:14] VITALS: BP 138/70
== END 2020-11-10 13:11 | disposition home or self-care (01) ==
LOC: EDUNIT# 11:12 → ER FS 11:14
DX: H65.92 Unspecified nonsuppurative otitis media, left ear (principal); H61.22 Impacted cerumen, left ear; I10 Essential (primary) hypertension; F41.9 Anxiety disorder, unspecified; Z79.52 Long term (current) use of systemic steroids; Z88.0 Allergy status to penicillin; Z88.5 Allergy status to narcotic agent; Z88.8 Allergy status to other drugs, medicaments and biological substances
CPT/HCPCS: 99284

== ENCOUNTER 2021-08-24 16:51 | Emergency (ER) | payer OTHER ==
[~2021-08-24] VITALS: Ht 182.8 cm; Wt 66.7 kg
[~2021-08-24 16:51] MED LIST changes: +CLIN-144 PO; -CLIN150C18 PO; +CLIN150C20 PO; -CLIN300C12 PO; +NF-CIPDEC OT
[2021-08-24 17:00] VITALS: BP 131/84
[2021-08-24] MEDS ORDERED: LACTATED RINGERS 1,000 ML IV STA (17:02)
[2021-08-24] MEDS ORDERED: D5 LR IV SOLUTION 1,000 ML IV STA (17:02)
--- NOTE | 2021-08-24 17:08 | ED General ---
General Stated Complaint: REFUSAL TO EAT/DRINK Source of Information: Patient, Police Exam Limitations: No Limitations History of Present Illness Date Seen by Provider: Aug 24, 2021 Time Seen by Provider: 16:55 Initial Comments 36-year-old male with past medical history of anxiety and untreated hepatitis C coming in with the police as he is incarcerated because he is refusing to eat. He has been drinking fluids and has urinated twice today. Last bowel movement was several days ago. He said he last ate on . He says he does not like the situation he is in, and does not have his court date until September 03. He says he does not plan to eat until then. He says is not due to food taste or any other preference. He denies any pain anywhere, vomiting, diarrhea, or any other concerns. Allergies and Home Medications Allergies Coded Allergies: Penicillins (Verified Allergy, Mild, 08/27/15) citalopram (Unverified Adverse Reaction, Unknown, 01/10/19) tramadol (Unverified Adverse Reaction, Unknown, 01/10/19) Patient Home Medication List Home Medication List Reviewed: Yes Acetaminophen with Codeine (Tylenol with Codeine #3 Tablet) 1 Each Tablet, 1-2 EACH PO Q6H PRN for BREAK THRU DENTAL PAIN Prescribed by: BETH SOLANO on 02/09/192053 Ciprofloxacin HCl/Dexameth (Ciprodex Otic Suspension) 7.5 Ml Soln, 4 DROPS OT BID Prescribed by: HUANG FRANCO on 11/10/20 1301 Clindamycin HCl (Clindamycin HCl) 150 Mg Capsule, 300 MG PO QID Prescribed by: BETH SOLANO on 02/09/192053 Clindamycin HCl (Clindamycin HCl) 300 Mg Capsule, 300 MG PO Q8H Prescribed by: HUANG FRANCO on 08/15/19 1139 Codeine Sulfate (Codeine Sulfate) 30 Mg Tab, 30 MG PO every 6 hours Prescribed by: DAVID JUÁREZ on 06/27/20 1502 Diclofenac Sodium (Diclofenac Sodium) 75 Mg Tablet.dr, 75 MG PO BID Prescribed by: GAIL MAGANA on 12/05/19 0836 Doxycycline Hyclate (Doxycycline Hyclate) 100 Mg Tablet, 100 MG PO BID Prescribed by: ELENI CROWLEL on 12/01/19 1118 Doxycycline Hyclate (Doxycycline Hyclate) 100 Mg Tablet, 100 MG PO BID Prescribed by: DAVID JUÁREZ on 06/27/20 1502 Hydrocodone/Acetaminophen (Hydrocodone-Acetamin 5-325 mg) 1 Each Tablet, 1 EACH PO Q6H PRN for PAIN-BREAKTHROUGH Prescribed by: MARIANNA GIBSON on 03/02/202027 Hydrocodone/Acetaminophen (Hydrocodone-Acetamin 5-325 mg) 1 Each Tablet, 1 TAB PO Q8H PRN for PAIN-MODERATE (5-7) Prescribed by: HUANG FRANCO on 11/10/20 1302 Hydroxyzine HCl (Hydroxyzine HCl) 50 Mg Tablet, 50 MG PO nightly Prescribed by: ELIA BOLANOS on 08/24/21 1747 Ibuprofen (Ibuprofen) 800 Mg Tablet, 800 MG PO Q8H PRN for PAIN Prescribed by: GAIL GARCIA on 01/10/19 1706 Ibuprofen (Ibuprofen) 800 Mg Tablet, 800 MG PO Q8H PRN for PAIN Prescribed by: MARIANNA GIBSON on 02/04/19 1454 Ibuprofen (Ibuprofen) 800 Mg Tablet, 800 MG PO Q8H PRN for PAIN Prescribed by: ELENI CROWELL on 12/01/19 1118 Levofloxacin (Levaquin) 500 Mg Tablet, 500 MG PO DAILY Prescribed by: MARIANNA GIBSON on 03/02/202027 Methylprednisolone (Methylprednisolone Dose Pack) 4 Mg Tablet, 4 MG PO UD Prescribed by: HUANG FRANCO on 06/29/20 0920 Morphine Sulfate (Morphine Sulfate IR Tablet) 15 Mg Tablet, 15 MG PO Q8H PRN for PAIN-SEVERE (8-10) Prescribed by: HUANG FRANCO on 08/15/19 1125 Mupirocin (Mupirocin) 22 Gm Oint...g., 22 GM TP TID Prescribed by: DAVID JUÁREZ on 06/27/20 1555 Mupirocin Calcium (Mupirocin) 15 Gm Cream..g., 1 GM TP TID Prescribed by: DAVID JUÁREZ on 06/27/20 1550 Naproxen (Naprosyn) 500 Mg Tablet, 500 MG PO BID Prescribed by: ELENI CROWELL on 04/21/20 1032 Naproxen (Naprosyn) 500 Mg Tablet, 500 MG PO BID Prescribed by: ELENI CROWELL on 09/30/20 1248 Propranolol HCl (Propranolol HCl) 20 Mg Tablet, 20 MG PO DAILY Prescribed by: MARIANNA GIBSON on 02/04/19 1420 Review of Systems Review of Systems Constitutional: No chills, No fever EENTM: No blurred vision Respiratory: No cough Cardiovascular: No chest pain Gastrointestinal: No abdominal pain, No nausea, No vomiting Genitourinary: no symptoms reported Musculoskeletal: no symptoms reported Skin: no symptoms reported Psychiatric/Neurological: No Symptoms Reported Hematologic/Lymphatic: No Symptoms Reported Immunological/Allergic: no symptoms reported All Other Systems Reviewed Negative Unless Noted: Yes Past Zswfkyj-Lfswyx-Laaiwd Hx Patient Social History Alcohol Use?: Yes Immunizations Up To Date Tetanus Booster (TDap): Less than 5yrs Seasonal Allergies Seasonal Allergies: No Past Medical History Surgeries: Yes (WISDOM TOOTH EXTRACTON) Appendectomy Respiratory: No Cardiac: Yes Hypertension Neurological: No Reproductive Disorders: No Genitourinary: No Gastrointestinal: No Musculoskeletal: Yes (hip dislocation and chronic pain) Endocrine: No HEENT: No Cancer: No Psychosocial: Yes Anxiety Integumentary: No (Cellulitis) Recent Skin Changes Blood Disorders: No Family Medical History No Pertinent Family Hx Physical Exam Vital Signs Vital Signs - First Documented 08/24/21 17:00 Temp 36.3 Pulse 128 Resp 16 B/P (MAP) 131/84 (100) Pulse Ox 98 O2 Delivery Room Air Capillary Refill : Height, Weight, BMI Height: 6'0" Weight: 160lbs. oz. 72.914639fw; 24.00 BMI Method:Stated General Appearance: No Apparent Distress, WD/WN Eyes: Bilateral Eye Normal Inspection HEENT: PERRL/EOMI, Normal ENT Inspection, Pharynx Normal Neck: Full Range of Motion, Normal Inspection, Non Tender, Supple Respiratory: Chest Non Tender, Lungs Clear, No Respiratory Distress Cardiovascular: No Edema, Normal Peripheral Pulses, Tachycardia Gastrointestinal: Normal Bowel Sounds, Non Tender, Soft; No Distended, No Guarding Back: Normal Inspection Extremity: Normal Capillary Refill, Normal Inspection, Normal Range of Motion, Non Tender, No Calf Tenderness, No Pedal Edema Neurologic/Psychiatric: Alert, No Motor/Sensory Deficits, Normal Mood/Affect Skin: Normal Color, Warm/Dry Lymphatic: No Adenopathy Progress/Results/Core Measures Suspected Sepsis SIRS Temperature: Pulse: Respiratory Rate: Blood Pressure / Mean: Laboratory Tests 08/24/21 17:06: Creatinine 0.92 Results/Orders Lab Results Laboratory Tests Test 08/24/21 17:06 Range/Units Sodium Level 135 135-145 MMOL/L Potassium Level 4.5 3.6-5.0 MMOL/L Chloride Level 95 L 98-107 MMOL/L Carbon Dioxide Level 13 L 21-32 MMOL/L Anion Gap 27 H 5-14 MMOL/L Blood Urea Nitrogen 12 7-18 MG/DL Creatinine 0.92 0.60-1.30 MG/DL Estimat Glomerular Filtration Rate 93 BUN/Creatinine Ratio 13 Glucose Level 60 *L 70-105 MG/DL Calcium Level 10.1 8.5-10.1 MG/DL My Orders Orders - ELIA BOLANOS MD Basic Metabolic Panel (08/24/21 17:02) Lactated Ringers (Lr 1000 Ml Iv Solution (08/24/21 17:02) D5 Lr Iv Solution (Dextrose 5%/Lactated (08/24/21 17:02) D50w (Emergency) Syringe (Dextrose 50% 5 (08/24/21 17:34) Hydroxyzine Cap/Tab (Vistaril) (08/24/21 18:00) Accucheck Stat ONCE (08/24/21 17:58) Medications Given in ED Current Medications Medications Dose Ordered Sig/Emma Route Start Time Stop Time Status Last Admin Dose Admin Dextrose 50 ml STK-MED ONCE .ROUTE 08/24/21 17:34 08/24/21 17:36 DC 08/24/21 17:39 50 ML Vital Signs/I&O 08/24/21 17:00 Temp 36.3 Pulse 128 Resp 16 B/P (MAP) 131/84 (100) Pulse Ox 98 O2 Delivery Room Air Capillary Refill : Progress Note : Progress Note 36-year-old male with above history coming in with the police from halfway because he is refusing to eat. He was tachycardic to the 120s on presentation with a normal blood pressure. He is denying any other acute complaints. He is willing to drink fluids. Given the tachycardia with decreased p.o., he did agree to allow us to place an IV and he received 2 L of IV fluids. A BMP to assess electrolytes was ordered. I offered him food which he is refusing. BMP was significant for a wide gap metabolic acidosis which is consistent with starvation ketosis. Glucose was 60. On top of the D5LR, we did add an amp of D50 to the mixture. I once again offer the patient food and he is refusing. In his words, he says humans can go 60 days without eating as long as they drink. He says he is not planning to eat right now. He says this is not an attempt to end his life and he does not feel suicidal. I discussed with the patient and the place with him that I cannot force him to eat unless there is some type of court order stating so. I did discuss that his glucose is low and if it gets low enough without his body adjusting he can and he is able to voice the concerns I have back to me. He does have capacity at this time to not eat. Repeat glucose had improved as expected. His starvation ketosis will also improve slightly with the glucose given. I believe he is stable for discharge wi th continued monitoring at the halfway. I suspect he will come back periodically for fluids unless they come back with some type of court order that they enforce further treatment which currently he is refusing. Of note, just prior to discharge the patient agreed to eat and did start eating. He essentially has been fasting for around 5 days, and I believe would be low risk for refeeding syndrome. Departure Impression Primary Impression: Starvation ketoacidosis Additional Impression: Hypoglycemia Disposition: 01 HOME, SELF-CARE Condition: Stable Departure-Patient Inst. Decision time for Depature: 18:15 Referrals: MELANIE COFFEY APRN (PCP) Primary Care Physician [facility] (Family) Primary Care Physician Patient Instructions: Ketoacidosis That Is Not Caused by Diabetes (DC), Low Blood Sugar, Adult ED Add. Discharge Instructions: You were seen in the emergency department because you are refusing to eat. Your blood sugar was slightly low at 60. We did give you some sugar through your IV. If your blood sugar gets too low you eventually will slip into a coma and . You are already pretty thin, and you would not last the full 60 days without eat ing like you had mentioned while in the emergency department. Scripts Hydroxyzine HCl (Hydroxyzine HCl) 50 Mg Tablet 50 MG PO nightly for 30 Days, #30 TAB Prov: ELIA BOLANOS MD 08/24/21 ELIA BOLANOS MD Aug 24, 2021 17:08
[2021-08-24 17:29] LABS: CREATININE SERUM 0.92 MG/DL (0.60-1.30); POTASSIUM 4.5 MMOL/L (3.6-5.0)
[2021-08-24 17:30] LABS: CALCIUM 10.1 MG/DL (8.5-10.1)
[2021-08-24] MEDS ORDERED: DEXTROSE 50% 50 ML (IMS) SYR ONE (17:34)
[2021-08-24] MEDS ORDERED: HYDR50TA76 PO (17:47)
[2021-08-24] MEDS ORDERED: hydrOXYzine (VISTARIL/ATARAX) 25 MG capsule/tablet PO ONE (18:00)
== END 2021-08-24 18:12 | disposition home or self-care (01) ==
LOC: EDUNIT# 16:51 → ER FS 16:52
DX: T73.0XXA Starvation, initial encounter (principal); E87.2 Acidosis; E16.2 Hypoglycemia, unspecified; I10 Essential (primary) hypertension; F41.9 Anxiety disorder, unspecified; Z88.0 Allergy status to penicillin; Z88.5 Allergy status to narcotic agent
CPT/HCPCS: 36415; 80048; 82947

== ENCOUNTER 2022-02-16 12:18 | Emergency (ER) | payer SELFPAY ==
[~2022-02-16] VITALS: Ht 182.9 cm; Wt 77.1 kg
[~2022-02-16 12:18] MED LIST changes: +HYDR50TA76 PO
[2022-02-16 12:20] VITALS: BP 128/83
--- NOTE | 2022-02-16 14:09 | ED General ---
General Chief Complaint: Bite-Animal/Human/Insect Stated Complaint: SNAKE BITE RT HAND Source of Information: Patient Exam Limitations: Other (Anxious) History of Present Illness Date Seen by Provider: Feb 16, 2022 Time Seen by Provider: 12:36 Initial Comments 37-year-old left handed male patient with history of anxiety presented POV with complaining of snakebite to right fingers. Patient stated he put his hand under water in a hole to get fish and something bit him that he believes it was a snake event he did not see. Patient complaining of pain all over and feeling very anxious and asking for Xanax at arrival to ER. Patient states he had tetanus immunization 2 months ago. Allergies and Home Medications Allergies Coded Allergies: Penicillins (Verified Allergy, Mild, 08/27/15) citalopram (Unverified Adverse Reaction, Unknown, 01/10/19) tramadol (Unverified Adverse Reaction, Unknown, 01/10/19) Patient Home Medication List Home Medication List Reviewed: Yes Acetaminophen with Codeine (Tylenol with Codeine #3 Tablet) 1 Each Tablet, 1-2 EACH PO Q6H PRN for BREAK THRU DENTAL PAIN Prescribed by: BETH SOLANO on 02/09/192053 Ciprofloxacin HCl/Dexameth (Ciprodex Otic Suspension) 7.5 Ml Soln, 4 DROPS OT BID Prescribed by: HUANG FRANCO on 11/10/20 1301 Clindamycin HCl (Clindamycin HCl) 150 Mg Capsule, 300 MG PO QID Prescribed by: BETH SOLANO on 02/09/192053 Clindamycin HCl (Clindamycin HCl) 300 Mg Capsule, 300 MG PO Q8H Prescribed by: HUANG FRANCO on 08/15/19 1139 Clindamycin HCl (Clindamycin HCl) 150 Mg Capsule, 150 MG PO TID Prescribed by: HUANG FRANCO on 12/01/21 0916 Clindamycin HCl (Clindamycin HCl) 300 Mg Capsule, 300 MG PO TID Prescribed by: HUANG FRANCO on 12/01/21 0916 Codeine Sulfate (Codeine Sulfate) 30 Mg Tab, 30 MG PO every 6 hours Prescribed by: DAVID JUÁREZ on 06/27/20 1502 Diclofenac Sodium (Diclofenac Sodium) 75 Mg Tablet.dr, 75 MG PO BID Prescribed by: GAIL MAGANA on 12/05/19 0836 Doxycycline Hyclate (Doxycycline Hyclate) 100 Mg Tablet, 100 MG PO BID Prescribed by: ELENI CROWELL on 12/01/19 1118 Doxycycline Hyclate (Doxycycline Hyclate) 100 Mg Tablet, 100 MG PO BID Prescribed by: DAVID JUÁREZ on 06/27/20 1502 Doxycycline Hyclate (Doxycycline Hyclate) 100 Mg Tablet, 100 MG PO BID Prescribed by: HUANG FRANCO on 12/01/21 0916 Hydrocodone/Acetaminophen (Hydrocodone-Acetamin 5-325 mg) 1 Each Tablet, 1 EACH PO Q6H PRN for PAIN-BREAKTHROUGH Prescribed by: MARIANNA GIBSON on 03/02/202027 Hydrocodone/Acetaminophen (Hydrocodone-Acetamin 5-325 mg) 1 Each Tablet, 1 TAB PO Q8H PRN for PAIN-MODERATE (5-7) Prescribed by: HUANG FRANCO on 11/10/20 1302 Hydroxyzine HCl (Hydroxyzine HCl) 50 Mg Tablet, 50 MG PO nightly Prescribed by: ELIA BOLANOS on 08/24/21 1747 Ibuprofen (Ibuprofen) 800 Mg Tablet, 800 MG PO Q8H PRN for PAIN Prescribed by: GAIL GARCIA on 01/10/19 1706 Ibuprofen (Ibuprofen) 800 Mg Tablet, 800 MG PO Q8H PRN for PAIN Prescribed by: MARIANNA GIBSON on 02/04/19 1454 Ibuprofen (Ibuprofen) 800 Mg Tablet, 800 MG PO Q8H PRN for PAIN Prescribed by: ELENI CROWELL on 12/01/19 1118 Levofloxacin (Levaquin) 500 Mg Tablet, 500 MG PO DAILY Prescribed by: MARIANNA GIBSON on 03/02/202027 Methylprednisolone (Methylprednisolone Dose Pack) 4 Mg Tablet, 4 MG PO UD Prescribed by: HUANG FRANCO on 06/29/20 0920 Morphine Sulfate (Morphine Sulfate IR Tablet) 15 Mg Tablet, 15 MG PO Q8H PRN for PAIN-SEVERE (8-10) Prescribed by: HUANG FRANCO on 08/15/19 112 Mupirocin (Mupirocin) 22 Gm Oint...g., 22 GM TP TID Prescribed by: DAVID JUÁREZ on 06/27/20 1555 Mupirocin Calcium (Mupirocin) 15 Gm Cream..g., 1 GM TP TID Prescribed by: DAVID JUÁREZ on 06/27/20 1550 Naproxen (Naprosyn) 500 Mg Tablet, 500 MG PO BID Prescribed by: ELENI CROWELL on 04/21/20 1032 Naproxen (Naprosyn) 500 Mg Tablet, 500 MG PO BID Prescribed by: ELENI CROWELL on 09/30/20 1248 Propranolol HCl (Propranolol HCl) 20 Mg Tablet, 20 MG PO DAILY Prescribed by: MARIANNA GIBSON on 02/04/19 1420 Review of Systems Review of Systems Constitutional: no symptoms reported EENTM: no symptoms reported Respiratory: no symptoms reported Cardiovascular: no symptoms reported Gastrointestinal: nausea Genitourinary: no symptoms reported Musculoskeletal: see HPI Skin: see HPI Psychiatric/Neurological: See HPI Hematologic/Lymphatic: No Symptoms Reported All Other Systems Reviewed Negative Unless Noted: Yes Past Ldfdayn-Wypzdx-Laurfx Hx Immunizations Up To Date Tetanus Booster (TDap): Less than 5yrs Seasonal Allergies Seasonal Allergies: No Past Medical History Surgery/Hospitalization HX: Hep C positive Surgeries: Yes (WISDOM TOOTH EXTRACTON) Appendectomy Respiratory: No Cardiac: Yes Hypertension Neurological: No Reproductive Disorders: No Genitourinary: No Gastrointestinal: No Musculoskeletal: Yes (hip dislocation and chronic pain) Endocrine: No HEENT: No Cancer: No Psychosocial: Yes Anxiety Integumentary: No (Cellulitis) Recent Skin Changes Blood Disorders: No Family Medical History No Pertinent Family Hx Physical Exam Vital Signs Vital Signs - First Documented 02/16/22 12:20 Temp 36.5 Pulse 112 Resp 8 B/P (MAP) 128/83 (98) Pulse Ox 99 O2 Delivery Room Air Capillary Refill : Height, Weight, BMI Height: 6'0" Weight: 160lbs. oz. 72.914362tb; 23.00 BMI Method:Stated General Appearance: Anxious, Mild Distress Eyes: Bilateral Eye Normal Inspection, Bilateral Eye PERRL HEENT: PERRL/EOMI, Moist Mucous Membranes Neck: Full Range of Motion, Normal Inspection Respiratory: Chest Non Tender, Lungs Clear Cardiovascular: Regular Rate, Rhythm, No Edema Gastrointestinal: Normal Bowel Sounds, Non Tender, Soft Back: Normal Inspection Extremity: Normal Capillary Refill, Normal Range of Motion, Non Tender, Other (Small area of erythema on tip of right fourth finger, small puncture wound in volar tip of third right finger, no erythema or tender) Neurologic/Psychiatric: Oriented x3 Skin: Normal Color, Warm/Dry Comments Very anxious, acting like under influence of drug Progress/Results/Core Measures Suspected Sepsis SIRS Temperature: Pulse: Respiratory Rate: Blood Pressure / Mean: Results/Orders Vital Signs/I&O 02/16/22 12:20 Temp 36.5 Pulse 112 Resp 8 B/P (MAP) 128/83 (98) Pulse Ox 99 O2 Delivery Room Air Capillary Refill : Progress Note : Progress Note Evaluation of patient in ER showed 37-year-old male patient with history of anxiety complaining of possible water snakebite to right third and fourth finger. Patient was very anxious but in exam had mild erythema of tip of third and fourth finger. Patient was up-to-date with tetanus immunization. Patient did not have edema or systemic signs of snakebite. Poison control was contacted and he suggested to observe patient for 6 hours with elevation of affected hand and if he develops edema or systemic sign obtain blood test. Patient asking for Xanax and IV fluid and IV line. He was walking naked in the room and checking the room cabinet and stated he was looking for Band-Aid. Patient decided to leave A and signed the form. Departure Impression Primary Impression: Bite by animal Disposition: AGAINST MEDICAL ADVICE Condition: Stable Departure-Patient Inst. Referrals: NO,LOCAL PHYSICIAN (PCP/Family) Primary Care Physician PHIL PUGA MD Feb 16, 2022 14:09
[2022-02-17] MEDS ORDERED: SULF1TAB38 PO (22:58)
[2022-02-17] MEDS ORDERED: IBUP-1780 PO (23:36)
== END 2022-02-16 14:08 | disposition left against medical advice (07) ==
LOC: EDUNIT# 12:18 → ER FS 12:19
DX: T63.001A Toxic effect of unspecified snake venom, accidental (unintentional), initial encounter (principal); Z28.310 Unvaccinated for COVID-19
CPT/HCPCS: 99283

== ENCOUNTER 2022-02-17 22:21 | Emergency (ER) | payer SELFPAY ==
[~2022-02-17] VITALS: Ht 182 cm; Wt 73.6 kg
[2022-02-17 22:28] VITALS: BP 148/99
--- NOTE | 2022-02-17 22:47 | ED Fall/Injury ---
General Chief Complaint: Laceration Stated Complaint: LACERATION ON RIGHT ELBOW Source: patient Exam Limitations: no limitations History of Present Illness Date Seen by Provider: Feb 17, 2022 Time Seen by Provider: 22:24 Initial Comments 37yoM with PMH of anxiety seen here yesterday for a snake bite to hit finger and leaving AMA coming in after he was walking at his friends house, a ?floor board was removed without him knowing and he fell roughly 7 feet. This happened at noon today and he states it was completely dark. He did not hit his head or pass out. He endorses a laceration to his right elbow which he says he tried to super glue. Does not take any blood thinners. Has not had anything for pain yet today. Majority of his pain is in his right hip which is constant, throbbing, moderate to severe, worse when he touches it, better with rest. Tetanus is up-to-date within the past couple months Allergies and Home Medications Allergies Coded Allergies: Penicillins (Verified Allergy, Mild, 08/27/15) citalopram (Unverified Adverse Reaction, Unknown, 01/10/19) tramadol (Unverified Adverse Reaction, Unknown, 01/10/19) Patient Home Medication List Home Medication List Reviewed: Yes Acetaminophen with Codeine (Tylenol with Codeine #3 Tablet) 1 Each Tablet, 1-2 EACH PO Q6H PRN for BREAK THRU DENTAL PAIN Prescribed by: BETH SOLANO on 02/09/192053 Ciprofloxacin HCl/Dexameth (Ciprodex Otic Suspension) 7.5 Ml Soln, 4 DROPS OT BID Prescribed by: HUANG FRANCO on 11/10/20 1301 Clindamycin HCl (Clindamycin HCl) 150 Mg Capsule, 300 MG PO QID Prescribed by: BETH SOLANO on 02/09/192053 Clindamycin HCl (Clindamycin HCl) 300 Mg Capsule, 300 MG PO Q8H Prescribed by: HUANG FRANCO on 08/15/19 1139 Clindamycin HCl (Clindamycin HCl) 150 Mg Capsule, 150 MG PO TID Prescribed by: HUANG FRANCO on 12/01/21 09 Clindamycin HCl (Clindamycin HCl) 300 Mg Capsule, 300 MG PO TID Prescribed by: HUANG FRANCO on 12/01/21 09 Codeine Sulfate (Codeine Sulfate) 30 Mg Tab, 30 MG PO every 6 hours Prescribed by: DAVID JUÁREZ on 06/27/20 1502 Diclofenac Sodium (Diclofenac Sodium) 75 Mg Tablet.dr, 75 MG PO BID Prescribed by: GAIL MAGANA on 12/05/19 0836 Doxycycline Hyclate (Doxycycline Hyclate) 100 Mg Tablet, 100 MG PO BID Prescribed by: ELENI CROWELL on 12/01/19 1118 Doxycycline Hyclate (Doxycycline Hyclate) 100 Mg Tablet, 100 MG PO BID Prescribed by: DAVID JUÁREZ on 06/27/20 1502 Doxycycline Hyclate (Doxycycline Hyclate) 100 Mg Tablet, 100 MG PO BID Prescribed by: HUANG FRANCO on 12/01/21 0916 Hydrocodone/Acetaminophen (Hydrocodone-Acetamin 5-325 mg) 1 Each Tablet, 1 EACH PO Q6H PRN for PAIN-BREAKTHROUGH Prescribed by: MARIANNA GIBSON on 03/02/202027 Hydrocodone/Acetaminophen (Hydrocodone-Acetamin 5-325 mg) 1 Each Tablet, 1 TAB PO Q8H PRN for PAIN-MODERATE (5-7) Prescribed by: HUANG FRANCO on 11/10/20 1302 Hydroxyzine HCl (Hydroxyzine HCl) 50 Mg Tablet, 50 MG PO nightly Prescribed by: ELIA BOLANOS on 08/24/21 1747 Ibuprofen (Ibuprofen) 800 Mg Tablet, 800 MG PO Q8H PRN for PAIN Prescribed by: GAIL GARCIA on 01/10/19 1706 Ibuprofen (Ibuprofen) 800 Mg Tablet, 800 MG PO Q8H PRN for PAIN Prescribed by: MARIANNA GIBSON on 02/04/19 1454 Ibuprofen (Ibuprofen) 800 Mg Tablet, 800 MG PO Q8H PRN for PAIN Prescribed by: ELENI CROWELL on 12/01/19 1118 Ibuprofen (Ibuprofen) 800 Mg Tablet, 800 MG PO Q8H PRN for PAIN Prescribed by: ELIA BOLANOS on 02/17/22 2336 Levofloxacin (Levaquin) 500 Mg Tablet, 500 MG PO DAILY Prescribed by: MARIANNA GIBSON on 03/02/202027 Methylprednisolone (Methylprednisolone Dose Pack) 4 Mg Tablet, 4 MG PO UD Prescribed by: HUANG FRANCO on 06/29/20 0920 Morphine Sulfate (Morphine Sulfate IR Tablet) 15 Mg Tablet, 15 MG PO Q8H PRN for PAIN-SEVERE (8-10) Prescribed by: HUANG FRANCO on 08/15/19 1125 Mupirocin (Mupirocin) 22 Gm Oint...g., 22 GM TP TID Prescribed by: DAVID JUÁREZ on 06/27/20 1555 Mupirocin Calcium (Mupirocin) 15 Gm Cream..g., 1 GM TP TID Prescribed by: DAVID JUÁREZ on 06/27/20 1550 Naproxen (Naprosyn) 500 Mg Tablet, 500 MG PO BID Prescribed by: ELENI CROWELL on 04/21/20 1032 Naproxen (Naprosyn) 500 Mg Tablet, 500 MG PO BID Prescribed by: ELENI CROWELL on 09/30/20 1248 Propranolol HCl (Propranolol HCl) 20 Mg Tablet, 20 MG PO DAILY Prescribed by: MARIANNA GIBSON on 02/04/19 1420 Sulfamethoxazole/Trimethoprim (Bactrim Ds Tablet) 1 Each Tablet, 1 EACH PO BID Prescribed by: ELIA BOLANOS on 02/17/22 8766 Review of Systems Review of Systems Constitutional: No fever Eyes: Denies Blurred Vision Ears, Nose, Mouth, Throat: no symptoms reported Respiratory: no symptoms reported Cardiovascular: no symptoms reported Gastrointestinal: no symptoms reported Genitourinary: no symptoms reported Musculoskeletal: joint pain Skin: no symptoms reported Psychiatric/Neurological: Anxiety All Other Systems Reviewed Negative Unless Noted: Yes Past Zbocjmm-Wggrma-Sjfbgn Hx Patient Social History Tobacco Use?: No Use of E-Cig and/or Vaping dev: No Substance use?: No Alcohol Use?: Yes Alcohol type: Beer Alcohol Frequency: Once in a while Pt feels they are or have been: No Immunizations Up To Date Tetanus Booster (TDap): Less than 5yrs Seasonal Allergies Seasonal Allergies: No Past Medical History Surgery/Hospitalization HX: Hep C positive Surgeries: Yes (WISDOM TOOTH EXTRACTON) Appendectomy Respiratory: No Cardiac: Yes Hypertension Neurological: No Reproductive Disorders: No Genitourinary: No Gastrointestinal: No Musculoskeletal: Yes (hip dislocation and chronic pain) Endocrine: No HEENT: No Cancer: No Psychosocial: Yes Anxiety Integumentary: No (Cellulitis) Recent Skin Changes Blood Disorders: No Family Medical History No Pertinent Family Hx Physical Exam Vital Signs Vital Signs - First Documented 02/17/22 22:28 Temp 37.4 Pulse 114 Resp 18 B/P (MAP) 148/99 (115) Pulse Ox 98 O2 Delivery Room Air Capillary Refill : Height, Weight, BMI Height: 6'0" Weight: 160lbs. oz. 72.678064sg; 23.00 BMI Method:Stated General Appearance: WD/WN, no apparent distress HEENT: PERRL/EOMI, normal ENT inspection, pharynx normal Neck: non-tender, full range of motion, supple, normal inspection Cardiovascular: regular rate, rhythm, no edema, no murmur Respiratory: chest non-tender, lungs clear, normal breath sounds, no respiratory distress, no accessory muscle use Gastrointestinal: normal bowel sounds, non tender, soft; No distended, No guarding, No rebound Back: normal inspection, no CVA tenderness, no vertebral tenderness Extremities: normal range of motion, no pedal edema, no calf tenderness, normal capillary refill, other (Significant bruising to the left arzate just above the ankle as well as the right lateral hip with pain in both areas) Neurologic/Psychiatric: no motor/sensory deficits, alert, normal mood/affect, oriented x 3 Skin: normal color, warm/dry, other (3cm laceration to the right elbow with subq tissue visible, roughly 3mm deep ) Lymphatic: no adenopathy [place] Coma Score Best Eye Response: (4) Open Spontaneously Best Verbal Response: (5) Oriented Best Motor Response: (6) Obeys Commands Procedures/Interventions Wound Location: Upper Extremities Other Wound Location right elbow Wound Length (cm): 3 Wound's Depth, Shape: superficial Wound Explored: clean Irrigated w/ Saline (ccs): 500 Anesthesia: 1% Lidocaine Volume Anesthetic (ccs): 3 Suture: Ethlion Suture Size: 4-0 (single running suture used) Other Closure Supply: Steri Strip 1/2" Number of Sutures: 1 Sterile Dressing Applied?: Yes Progress Patient tolerated procedure well and is hemostatic, reinforced with Steri-Strips and then wrapped with gauze and [place] Progress/Results/Core Measures Results/Orders My Orders Orders - ELIA BOLANOS MD Ankle 3 View Left (02/17/22 22:44) Chest 1 View Ap/Pa Only (02/17/22 22:44) Pelvis With Right Hip 2-3 View (02/17/22 22:44) Hydrocodone/Apap 5/325 Tablet (Lortab 5 (02/17/22 22:45) Elbow 2 View Right (02/17/22 22:47) Sulfamethoxazole/Trimet Ds Tab (Bactrim (02/17/22 23:00) Oxycodone Immediate Rel Tablet (Oxyir Ta (02/17/22 23:30) Rx-Ibuprofen (Rx-Motrin) (02/17/22 23:36) Medications Given in ED Current Medications Medications Dose Ordered Sig/Emma Route Start Time Stop Time Status Last Admin Dose Admin Oxycodone HCl 5 mg ONCE ONCE PO 02/17/22 23:30 02/17/22 23:31 DC 02/17/22 23:25 5 MG Trimethoprim/ Sulfamethoxazole 1 ea ONCE ONCE PO 02/17/22 23:00 02/17/22 23:01 DC 02/17/22 23:13 1 EA Vital Signs/I&O 02/17/22 22:28 Temp 37.4 Pulse 114 Resp 18 B/P (MAP) 148/99 (115) Pulse Ox 98 O2 Delivery Room Air Progress Progress Note : Progress Note 37-year-old male with above history coming in after he fell with pain in his right hip, left ankle, right elbow. ABCs were intact and vitals were stable on presentation with a GCS of 15. Physical exam most notably for the laceration to his right elbow and bruising to his right lateral hip and left ankle/arzate. He did not hit his head or pass out and the injury occurred almost 11 hours ago making it unlikely he has a significant brain injury. Tetanus is up-to-date. Offered hydrocodone for pain initially. Afterwards he was saying that this was an allergy even though he did not mention earlier. Says it causes a rash and makes it difficult to breathe. He says he has not received hydrocodone in many years. He says he can only tolerate oxycodone 10 mg. Upon review of our system here, he received hydrocodone just last year. He has not received oxycodone in quite some time in fact based on his KTRACS. The last prescription was hydrocodone. Given his abdomen see that he is allergic, he was given oxycodone 5 mg. X-rays of the chest, right elbow, hip, and left ankle ordered and interpreted by me showing no fractures or dislocations. Patient was given a single oxycodone while waiting on x-rays. Afterwards he was asking to go home with oxycodone 10mg which I said we would not do given there is nothing broken and I recommended ibuprofen. He became very persistent that he must go home with oxycodone 10 mg tablets tonight despite nothing being broken. I discussed that this is not appropriate at this time. Of note, the patient was inappropriate and multiple times while in the emergency department and at one point was asking the nurse taking care of him if she was and if she would like to go to dinner with him. She stated that this is an appropriate conversation, and the patient continued to attempt to engage in similar conversation. Departure Impression Primary Impression: Fall Qualified Codes: W19.XXXA - Unspecified fall, initial encounter Additional Impressions: Laceration of right elbow Qualified Codes: S51.011A - Laceration without foreign body of right elbow, initial encounter Hip hematoma, right Qualified Codes: S70.01XA - Contusion of right hip, initial encounter Disposition: HOME, SELF-CARE Condition: Stable Departure-Patient Inst. Decision time for Depature: 23:35 Referrals: NO,LOCAL PHYSICIAN (PCP/Family) Primary Care Physician Patient Instructions: Laceration Repair With Stitches ED Add. Discharge Instructions: You will need to be on antibiotics for the next week. The stitches need to come out in 7 days as well. If any redness spreads up your arm, pus comes out, fever, or any other concerns then please come back to the ER or see your regular doctor. Take ibuprofen and or Tylenol as needed for pain. Would also recommend icing the area of your hip and ankle. Scripts Ibuprofen (Ibuprofen) 800 Mg Tablet 800 MG PO Q8H PRN for PAIN for 5 Days, #15 TAB 0 Refills Prov: ELIA BOLANOS MD 02/17/22 Sulfamethoxazole/Trimethoprim (Bactrim Ds Tablet) 1 Each Tablet 1 EACH PO BID for 7 Days, #14 TAB Prov: ELIA BOLANOS MD 02/17/22 Work/School Note: Work Release Form Date Seen in the Emergency Department: Feb 17, 2022 Return to Work: Feb 19, 2022 Restrictions: No Restrictions ELIA BOLANOS MD Feb 17, 2022 22:47
[2022-02-17] MEDS ORDERED: SULF1TAB38 PO (22:58)
[2022-02-17] MEDS ORDERED: TRIM/SULFAMETH 160/800 (SEPTRA DS) TAB PO ONE (23:00)
[2022-02-17] MEDS: HYDROcodone/APAP 5 MG/325 MG (LORTAB) TAB PO ONE ×2 (23:13→23:19)
[2022-02-17] MEDS ORDERED: IBUP-1780 PO (23:36)
[2022-02-17] MEDS ORDERED: RX-IBUPROFEN 600 MG (MOTRIN) TAB PPK#4 PO STA (23:36)
--- NOTE | 2022-02-18 07:12 | Diagnostic Imaging Report ---
INDICATION: Fall from height. No prior examinations are available for comparison. FINDINGS: The heart size, mediastinal configuration, and pulmonary vascularity are within normal limits. There is no pleural effusion, pneumothorax, or pneumonia. The osseous structures are unremarkable. IMPRESSION: No acute cardiopulmonary abnormality. Dictated by: Dictated on workstation # [id number]
--- NOTE | 2022-02-18 07:12 | Diagnostic Imaging Report ---
INDICATION: Pain after fall FINDINGS: 2 views were obtained. The alignment is normal. There is no fracture or dislocation. There is no joint effusion. There is some soft tissue swelling posteriorly. IMPRESSION: Soft tissue swelling however no acute fracture or dislocation. Dictated by: Dictated on workstation # [id number]
--- NOTE | 2022-02-18 07:19 | Diagnostic Imaging Report ---
INDICATION: Pain, post fall from height TECHNIQUE: AP pelvis 7:06 PM CORRELATION STUDY: None FINDINGS: The pelvis demonstrates no evidence for acute fracture. The pectineal lines and obturator rings are maintained. Pubic symphysis and SI joints are unremarkable. Hips unremarkable. IMPRESSION: Negative examination of the pelvis. Dictated by: Dictated on workstation # [id number]
--- NOTE | 2022-02-18 07:21 | Diagnostic Imaging Report ---
INDICATION: Pain, post fall from height TECHNIQUE: Three views of the left ankle CORRELATION STUDY: None FINDINGS: The bony alignment is anatomic. The talar dome is intact. The ankle mortise is maintained. There is no acute fracture or dislocation. Soft tissue swelling particularly anteriorly. IMPRESSION: Negative for acute bony abnormality of the ankle. Soft tissue swelling. Dictated by: Dictated on workstation # [id number]
== END 2022-02-17 23:45 | disposition home or self-care (01) ==
LOC: EDUNIT# 22:21 → ER FS 22:25
DX: S51.011A Laceration without foreign body of right elbow, initial encounter (principal); S70.01XA Contusion of right hip, initial encounter; S80.12XA Contusion of left lower leg, initial encounter; W17.89XA Other fall from one level to another, initial encounter
CPT/HCPCS: 71045; 73070; 73502; 73610

== ENCOUNTER 2022-06-11 09:18 | Emergency (ER) | payer SELFPAY ==
[~2022-06-11] VITALS: Ht 182.9 cm; Wt 69.6 kg
[~2022-06-11 09:18] MED LIST changes: +SULF1TAB38 PO
[2022-06-11] MEDS ORDERED: ONDANSETRON 4 MG/2 ML (SDV) Z0FRAN IVP ONE (09:45)
[2022-06-11] MEDS ORDERED: KETOROLAC 30 MG/ML VIAL IVP ONE (09:45)
[2022-06-11] MEDS: NS IV 1000 ML 1,000 ML IV SCH ×2 (09:45→11:34)
[2022-06-11 09:46] LABS: BASOPHILS % (AUTO) 0 % (0-10); EOSINOPHILS % (AUTO) 0 % (0-10); HEMATOCRIT 44 % (40-54); LYMPHOCYTES # (AUTO) 0.3 10^3/uL (1.0-4.0); LYMPHOCYTES % (AUTO) 3 % (12-44); MEAN CORPUSCULAR HEMOGLOBIN 32 pg (25-34); MEAN CORPUSCULAR HGB CONC 34 g/dL (32-36); MEAN CORPUSCULAR VOLUME 94 fL (80-99); MEAN PLATELET VOLUME 8.5 fL (9.0-12.2); MONOCYTES # (AUTO) 0.7 10^3/uL (0.0-1.0); MONOCYTES % (AUTO) 8 % (0-12); NEUTROPHILS # (AUTO) 8.3 10^3/uL (1.8-7.8); NEUTROPHILS % (AUTO) 89 % (42-75); PLATELET COUNT 261 10^3/uL (130-400); WHITE BLOOD COUNT 9.4 10^3/uL (4.3-11.0)
--- NOTE | 2022-06-11 09:57 | Diagnostic Imaging Report ---
EXAMINATION: Chest 1 view HISTORY: Cough. COMPARISON: 02/17/2022. FINDINGS: The lung volumes are normal. No focal consolidation is seen. No large pleural effusion or pneumothorax is seen. The cardiomediastinal silhouette is normal in size and contour. No acute osseous abnormality is seen. IMPRESSION: 1. No acute pleuroparenchymal process. Dictated by: Dictated on workstation # [id number]
[2022-06-11 10:02] LABS: POTASSIUM 3.7 MMOL/L (3.6-5.0)
[2022-06-11 10:04] LABS: CALCIUM 9.2 MG/DL (8.5-10.1); CREATININE SERUM 0.87 MG/DL (0.60-1.30)
[2022-06-11 10:06] LABS: ALBUMIN 4.2 GM/DL (3.2-4.5); TOTAL PROTEIN 7.3 GM/DL (6.4-8.2)
[2022-06-11] MEDS ORDERED: D5 1/2 NS 1000 ML IV SOLUTION 1,000 ML IV ONE (10:15)
--- NOTE | 2022-06-11 10:18 | ED General ---
General Chief Complaint: Cough/Cold/Flu Symptoms Stated Complaint: SOB; CHEST PAIN; VOMITING Nursing Triage Note: Patient reports he was admitted to [facility] in [place], [place] within the last week for a viral illness. He reports he left AMA, states he is unsure why he left, states he may have been delirious. He reports cough, SOA, chest pain, vomiting, and diarrhea for 1 week. Source of Information: Patient Exam Limitations: No Limitations History of Present Illness Date Seen by Provider: Jun 11, 2022 Time Seen by Provider: 09:15 Initial Comments Patient is a 37-year-old male well-known to this facility who presents with chest pain, cough, sore throat, nausea and vomiting. Patient has had his symptoms for the past week and was admitted to [facility] in [facility] for the same. He left against AMA and states that he is continue to have nausea vomiting and body aches. Reports loose cough, shortness of breath and chest wall pain with cough. He has had intermittent vomiting and diarrhea. He last ate canned peaches last evening. He denies fever chills and sweats. No other acute symptoms or complaints history of hepatitis C and drug use. Timing/Duration: 1 Week Severity: Moderate Modifying Factors: improves with Other Associated Systoms: Other Allergies and Home Medications Allergies Coded Allergies: Penicillins (Verified Allergy, Mild, 08/27/15) citalopram (Unverified Adverse Reaction, Unknown, 01/10/19) tramadol (Unverified Adverse Reaction, Unknown, 01/10/19) Patient Home Medication List Home Medication List Reviewed: Yes Acetaminophen with Codeine (Tylenol with Codeine #3 Tablet) 1 Each Tablet, 1-2 EACH PO Q6H PRN for BREAK THRU DENTAL PAIN Prescribed by: BETH SOLANO on 02/09/192053 Ciprofloxacin HCl/Dexameth (Ciprodex Otic Suspension) 7.5 Ml Soln, 4 DROPS OT BID Prescribed by: HUANG FRANCO on 11/10/20 1301 Clindamycin HCl (Clindamycin HCl) 150 Mg Capsule, 300 MG PO QID Prescribed by: BETH SOLANO on 02/09/192053 Clindamycin HCl (Clindamycin HCl) 300 Mg Capsule, 300 MG PO Q8H Prescribed by: HUANG FRANCO on 08/15/19 1139 Clindamycin HCl (Clindamycin HCl) 150 Mg Capsule, 150 MG PO TID Prescribed by: HUANG FRANCO on 12/01/21 09 Clindamycin HCl (Clindamycin HCl) 300 Mg Capsule, 300 MG PO TID Prescribed by: HUANG FRANCO on 12/01/21 09 Codeine Sulfate (Codeine Sulfate) 30 Mg Tab, 30 MG PO every 6 hours Prescribed by: DAVID JUÁREZ on 06/27/20 1502 Diclofenac Sodium (Diclofenac Sodium) 75 Mg Tablet.dr, 75 MG PO BID Prescribed by: GAIL MAGANA on 12/05/19 0836 Doxycycline Hyclate (Doxycycline Hyclate) 100 Mg Tablet, 100 MG PO BID Prescribed by: ELENI CROWELL on 12/01/19 1118 Doxycycline Hyclate (Doxycycline Hyclate) 100 Mg Tablet, 100 MG PO BID Prescribed by: DAVID JUÁREZ on 06/27/20 1502 Doxycycline Hyclate (Doxycycline Hyclate) 100 Mg Tablet, 100 MG PO BID Prescribed by: HUANG FRANCO on 12/01/21 09 Famotidine (Pepcid) 20 Mg Tablet, 20 MG PO BID Prescribed by: MICKY ROBLES on 06/11/22 1020 Hydrocodone/Acetaminophen (Hydrocodone-Acetamin 5-325 mg) 1 Each Tablet, 1 EACH PO Q6H PRN for PAIN-BREAKTHROUGH Prescribed by: MARIANNA GIBSON on 03/02/202027 Hydrocodone/Acetaminophen (Hydrocodone-Acetamin 5-325 mg) 1 Each Tablet, 1 TAB PO Q8H PRN for PAIN-MODERATE (5-7) Prescribed by: HUANG FRANCO on 11/10/20 1302 Hydroxyzine HCl (Hydroxyzine HCl) 50 Mg Tablet, 50 MG PO nightly Prescribed by: ELIA BOLANOS on 08/24/21 1747 Ibuprofen (Ibuprofen) 800 Mg Tablet, 800 MG PO Q8H PRN for PAIN Prescribed by: GAIL GARCIA on 01/10/19 1706 Ibuprofen (Ibuprofen) 800 Mg Tablet, 800 MG PO Q8H PRN for PAIN Prescribed by: MARIANNA GIBSON on 02/04/19 1454 Ibuprofen (Ibuprofen) 800 Mg Tablet, 800 MG PO Q8H PRN for PAIN Prescribed by: ELENI CROWELL on 12/01/19 1118 Ibuprofen (Ibuprofen) 800 Mg Tablet, 800 MG PO Q8H PRN for PAIN Prescribed by: ELIA BOLANOS on 02/17/22 2336 Levofloxacin (Levaquin) 500 Mg Tablet, 500 MG PO DAILY Prescribed by: MARIANNA GIBSON on 03/02/202027 Methylprednisolone (Methylprednisolone Dose Pack) 4 Mg Tablet, 4 MG PO UD Prescribed by: HUANG FRANCO on 06/29/20 0920 Morphine Sulfate (Morphine Sulfate IR Tablet) 15 Mg Tablet, 15 MG PO Q8H PRN for PAIN-SEVERE (8-10) Prescribed by: HUANG FRANCO on 08/15/19 1125 Mupirocin (Mupirocin) 22 Gm Oint...g., 22 GM TP TID Prescribed by: DAVID JUÁREZ on 06/27/20 1555 Mupirocin Calcium (Mupirocin) 15 Gm Cream..g., 1 GM TP TID Prescribed by: DAVID JUÁREZ on 06/27/20 1550 Naproxen (Naprosyn) 500 Mg Tablet, 500 MG PO BID Prescribed by: ELENI CHARLESSTBURKE on 04/21/20 1032 Naproxen (Naprosyn) 500 Mg Tablet, 500 MG PO BID Prescribed by: ELENI CROWELL on 09/30/20 1248 Ondansetron (Ondansetron Odt) 4 Mg Tab.rapdis, 4 MG SL Q4H PRN for NAUSEA/VOMITING Prescribed by: MICKY ROBLES on 06/11/22 1020 Propranolol HCl (Propranolol HCl) 20 Mg Tablet, 20 MG PO DAILY Prescribed by: MARIANNA GIBSON on 02/04/19 1420 Sulfamethoxazole/Trimethoprim (Bactrim Ds Tablet) 1 Each Tablet, 1 EACH PO BID Prescribed by: ELIA BOLANOS on 02/17/22 0163 Review of Systems Review of Systems Constitutional: see HPI EENTM: see HPI Respiratory: see HPI Cardiovascular: see HPI Gastrointestinal: see HPI Genitourinary: see HPI Musculoskeletal: see HPI Skin: see HPI Psychiatric/Neurological: See HPI Hematologic/Lymphatic: See HPI Immunological/Allergic: see HPI All Other Systems Reviewed Negative Unless Noted: No Past Hxyjrou-Jsnoyz-Fezgwt Hx Patient Social History Tobacco Use?: No Use of E-Cig and/or Vaping dev: No Substance use?: No Additional substance use comme: Hx: meth use. Denies current use Alcohol Use?: Yes Alcohol Frequency: Once in a while Pt feels they are or have been: No Immunizations Up To Date Tetanus Booster (TDap): Less than 5yrs First/Initial COVID19 Vaccinat: Not currently vaccinated Seasonal Allergies Seasonal Allergies: No Past Medical History Surgery/Hospitalization HX: Hep C positive; substance abuse Surgeries: Yes (WISDOM TOOTH EXTRACTON) Appendectomy Respiratory: No Cardiac: Yes Hypertension Neurological: No Reproductive Disorders: No Genitourinary: No Gastrointestinal: No Musculoskeletal: Yes (hip dislocation and chronic pain) Endocrine: No HEENT: No Cancer: No Psychosocial: Yes Anxiety Integumentary: No (Cellulitis) Recent Skin Changes Blood Disorders: No Family Medical History No Pertinent Family Hx Physical Exam Vital Signs Vital Signs - First Documented 06/11/22 09:29 Temp 36.7 Pulse 99 Resp 16 B/P (MAP) 105/86 (92) Pulse Ox 98 O2 Delivery Room Air Capillary Refill : Less Than 3 Seconds Height, Weight, BMI Height: 6'0" Weight: 160lbs. oz. 72.429199ox; 20.00 BMI Method:Stated General Appearance: No Apparent Distress, WD/WN Eyes: Bilateral Eye Normal Inspection, Bilateral Eye PERRL, Bilateral Eye EOMI HEENT: PERRL/EOMI, Normal ENT Inspection, Pharynx Normal, Moist Mucous Membranes Neck: Full Range of Motion, Normal Inspection, Supple Respiratory: Chest Non Tender, Lungs Clear, Normal Breath Sounds Cardiovascular: Tachycardia Gastrointestinal: Non Tender, Soft Back: Normal Inspection, No CVA Tenderness Neurologic/Psychiatric: Alert, Oriented x3, No Motor/Sensory Deficits Focused Exam Sepsis Stage: Ruled Out Lactate Level 06/11/22 09:50: Lactic Acid Level 1.57 Lactic Acid Level Laboratory Tests Test 06/11/22 09:50 Lactic Acid Level 1.57 MMOL/L (0.50-2.00) Procedures/Interventions Suture Size: 4-0 Progress/Results/Core Measures Suspected Sepsis SIRS Temperature: Pulse: 99 Respiratory Rate: 16 Laboratory Tests 06/11/22 09:30: White Blood Count 9.4 Blood Pressure 105 /86 Mean: 92 06/11/22 09:50: Lactic Acid Level 1.57 Laboratory Tests 06/11/22 09:30: Creatinine 0.87, Platelet Count 261, Total Bilirubin 1.0 Results/Orders Lab Results Laboratory Tests Test 06/11/22 09:30 06/11/22 09:50 Range/Units White Blood Count 9.4 4.3-11.0 10^3/uL Red Blood Count 4.68 4.30-5.52 10^6/uL Hemoglobin 15.0 13.3-17.7 g/dL Hematocrit 44 40-54 % Mean Corpuscular Volume 94 80-99 fL Mean Corpuscular Hemoglobin 32 25-34 pg Mean Corpuscular Hemoglobin Concent 34 32-36 g/dL Red Cell Distribution Width 14.4 10.0-14.5 % Platelet Count 261 130-400 10^3/uL Mean Platelet Volume 8.5 L 9.0-12.2 fL Immature Granulocyte % (Auto) 0 % Neutrophils (%) (Auto) 89 H 42-75 % Lymphocytes (%) (Auto) 3 L 12-44 % Monocytes (%) (Auto) 8 0-12 % Eosinophils (%) (Auto) 0 0-10 % Basophils (%) (Auto) 0 0-10 % Neutrophils # (Auto) 8.3 H 1.8-7.8 10^3/uL Lymphocytes # (Auto) 0.3 L 1.0-4.0 10^3/uL Monocytes # (Auto) 0.7 0.0-1.0 10^3/uL Eosinophils # (Auto) 0.0 0.0-0.3 10^3/uL Basophils # (Auto) 0.0 0.0-0.1 10^3/uL Immature Granulocyte # (Auto) 0.0 0.0-0.1 10^3/uL Neutrophils % (Manual) 86 % Lymphocytes % (Manual) 4 % Monocytes % (Manual) 3 % Eosinophils % (Manual) 1 % Basophils % (Manual) 0 % Band Neutrophils 6 % Sodium Level 131 L 135-145 MMOL/L Potassium Level 3.7 3.6-5.0 MMOL/L Chloride Level 94 L 98-107 MMOL/L Carbon Dioxide Level 22 21-32 MMOL/L Anion Gap 15 H 5-14 MMOL/L Blood Urea Nitrogen 10 7-18 MG/DL Creatinine 0.87 0.60-1.30 MG/DL Estimat Glomerular Filtration Rate 113 BUN/Creatinine Ratio 11 Glucose Level 147 H 70-105 MG/DL Calcium Level 9.2 8.5-10.1 MG/DL Corrected Calcium 9.0 8.5-10.1 MG/DL Total Bilirubin 1.0 0.1-1.0 MG/DL Aspartate Amino Transf (AST/SGOT) 98 H 5-34 U/L Alanine Aminotransferase (ALT/SGPT) 62 H 0-55 U/L Alkaline Phosphatase 48 40-136 U/L C-Reactive Protein 1.03 H <0.50 MG/DL Total Protein 7.3 6.4-8.2 GM/DL Albumin 4.2 3.2-4.5 GM/DL Lactic Acid Level 1.57 0.50-2.00 MMOL/L My Orders Orders - MICKY ROBLES DO Cbc With Automated Diff (06/11/22 09:35) Comprehensive Metabolic Panel (06/11/22 09:35) Lactic Acid Analyzer (06/11/22 09:35) Crp Fs (06/11/22 09:35) Ekg Tracing (06/11/22 09:35) Chest 1 View Ap/Pa Only (06/11/22 09:35) Drug Screen Stat (Urine) (06/11/22 09:35) Ua Culture If Indicated (06/11/22 09:35) Ns Iv 1000 Ml (Sodium Chloride 0.9%) (06/11/22 09:45) Ketorolac Injection (Toradol Injection) (06/11/22 09:45) Ondansetron Injection (Zofran Injectio (06/11/22 09:45) Manual Differential (06/11/22 09:30) D5 1/2 Ns 1000 Ml Iv Solution (Dextrose (06/11/22 10:15) Medications Given in ED Current Medications Medications Dose Ordered Sig/Emma Route Start Time Stop Time Status Last Admin Dose Admin Dextrose/Sodium Chloride 1,000 ml @ 1,000 mls/hr Q1H ONCE IV 06/11/22 10:15 06/11/22 11:14 06/11/22 10:28 1,000 MLS/HR Ketorolac Tromethamine 30 mg ONCE ONCE IVP 06/11/22 09:45 06/11/22 09:46 DC 06/11/22 09:45 30 MG Ondansetron HCl 4 mg ONCE ONCE IVP 06/11/22 09:45 06/11/22 09:46 DC 06/11/22 09:45 4 MG Vital Signs/I&O 06/11/22 06/11/22 09:29 09:41 Temp 36.7 Pulse 99 Resp 16 B/P (MAP) 105/86 (92) Pulse Ox 98 O2 Delivery Room Air Room Air Capillary Refill : Less Than 3 Seconds Blood Pressure Mean: 92 Departure Communication (Admissions) EKG: Sinus tachycardia, rate 102, no acute ST-T wave changes. Chest x-ray: No acute cardiopulmonary disease on preliminary ED review. Patient tachycardic with hypotension decreased oral intake after prolonged viral illness. Physical exam and review of tests are nondiagnostic. [place] medical records reviewed positive for methamphetamines. Patient uses meth, cocaine and binge drinks alcohol placing at risk for withdrawal symptoms IV fluids, anti emetics and anti-inflammatories given clinical improvement. Patient states he feels improved and requests to go home. We will continue supportive care with watchful waiting and close PCP follow-up. Return precautions reviewed. Patient verbalizes understanding agreement discharge instructions prior to departure. Impression Primary Impression: Viral illness Disposition: HOME, SELF-CARE Condition: Stable Departure-Patient Inst. Decision time for Depature: 11:00 Referrals: NO,LOCAL PHYSICIAN (PCP/Family) Primary Care Physician Patient Instructions: Viral Syndrome (DC) Add. Discharge Instructions: You were evaluated in the emergency department for cough, chest wall pain, sore throat nausea and dizziness. EKG lab and imaging studies were performed and are nondiagnostic. The exact cause of your symptoms has not been determined but may be consistent with a viral syndrome. Please go home and rest, take newly prescribed medications as directed and increase fluid intake. Drink clear liquids only for the next 6 to 12 hours then gradually progressed to a bland diet as tolerated. Follow-up with your local primary care provider in 1 to 2 days for reevaluation. Return to the ED if new or worsening symptoms. All discharge instructions reviewed with patient and/or family. Voiced understanding. Scripts Famotidine (Pepcid) 20 Mg Tablet 20 MG PO BID, #30 TAB Prov: MICKY ROBLES DO 06/11/22 Ondansetron (Ondansetron Odt) 4 Mg Tab.rapdis 4 MG SL Q4H PRN for NAUSEA/VOMITING, #10 TAB Prov: MICKY ROBLES DO 06/11/22 Work/School Note: Work Release Form Date Seen in the Emergency Department: Jun 11, 2022 Return to Work: Jun 13, 2022 Restrictions: No Restrictions MICKY ROBLES DO Jun 11, 2022 10:18
[2022-06-11 10:19] LABS: BAND NEUTROPHILS 6 %; LYMPHOCYTES % (MANUAL) 4 %; NEUTROPHILS % (MANUAL) 86 %
[2022-06-11 10:20] LABS: BASOPHILS % (MANUAL) 0 %; EOSINOPHILS % (MANUAL) 1 %; MONOCYTES % (MANUAL) 3 %
[2022-06-11] MEDS ORDERED: FAMO-119 PO (10:20)
[2022-06-11] MEDS ORDERED: ONDA4TAB11 SL (10:20)
[2022-06-11] MEDS ORDERED: predniSONE 20 MG TAB PO ONE (11:15)
[2022-06-11 11:35] VITALS: BP 110/72
== END 2022-06-11 11:36 | disposition home or self-care (01) ==
LOC: EDUNIT# 09:18 → ER FS 09:20
DX: B34.9 Viral infection, unspecified (principal); R11.2 Nausea with vomiting, unspecified; R05.1 Acute cough; R07.9 Chest pain, unspecified; R06.02 Shortness of breath; Z28.310 Unvaccinated for COVID-19
CPT/HCPCS: 36415; 71045; 80053; 83605; 85007; 85027; 86141; 93005; 93041

== ENCOUNTER 2022-06-12 22:55 | Emergency (ER) | payer SELFPAY ==
[~2022-06-12] VITALS: Ht 182.9 cm; Wt 75.0 kg
[~2022-06-12 22:55] MED LIST changes: +FAMO-119 PO; +ONDA4TAB11 SL
[2022-06-12 22:59] VITALS: BP 150/101
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
== END 2022-06-12 23:10 | disposition home or self-care (01) ==
LOC: EDUNIT# 22:55 → ER FS 22:57
DX: M25.531 Pain in right wrist (principal); M25.571 Pain in right ankle and joints of right foot; F17.210 Nicotine dependence, cigarettes, uncomplicated; Z28.310 Unvaccinated for COVID-19
CPT/HCPCS: 99285

== ENCOUNTER 2022-08-12 11:03 | Emergency (ER) | payer SELFPAY ==
[~2022-08-12] VITALS: Ht 182 cm; Wt 74.0 kg
[2022-08-12 11:08] VITALS: BP 142/87
[2022-08-12] MEDS ORDERED: ANTACID SUSP 30 ML UDC (MYLANTA) PO ONE (11:30)
[2022-08-12] MEDS ORDERED: LIDOCAINE 2% VISCOUS 15 ML UDC PO ONE (11:30)
[2022-08-12] MEDS ORDERED: ACETAMINOPHEN 500 MG TAB (TYLENOL) PO ONE (11:30)
--- NOTE | 2022-08-12 11:45 | Diagnostic Imaging Report ---
EXAM: CHEST PA/LAT (2 VIEW) INDICATION: Cough. Vasculitis. COMPARISON: Chest radiograph 06/11/2022. FINDINGS: Normal heart size and central pulmonary vascularity. Lungs are clear. No pleural effusion or pneumothorax. No acute osseous findings. IMPRESSION: No acute cardiopulmonary findings. Dictated by: Dictated on workstation # [id number]
--- NOTE | 2022-08-12 11:51 | ED EENT ---
History of Present Illness General Chief Complaint: Oral/Throat Problems Stated Complaint: ORAL SORE Nursing Triage Note: Pt reports blood blisters on tongue and throat that began around midnight. Source: patient Exam Limitations: no limitations History of Present Illness Date Seen by Provider: Aug 12, 2022 Time Seen by Provider: 11:07 Initial Comments 37-year-old male with no pertinent past medical history coming in as referral from his PCP due to blisters on his tongue and throat that began around midnight last night. He states he has tried to pop them when he had breakfast this morning. Denies ever having this happen before. Denies any eye symptoms, chest pain, shortness of breath, abdominal pain, nausea, vomiting, diarrhea, weakness, numbness, fever, rash, body aches, joint swelling, or any other concerns. He denies rash anywhere else such as in his hands, feet, genitals. Of note, he states he tests for HIV roughly every 6 months and has been negative. Allergies and Home Medications Allergies Coded Allergies: Penicillins (Verified Allergy, Mild, 08/27/15) citalopram (Unverified Adverse Reaction, Unknown, 01/10/19) tramadol (Unverified Adverse Reaction, Unknown, 01/10/19) Patient Home Medication List Home Medication List Reviewed: Yes Acetaminophen with Codeine (Tylenol with Codeine #3 Tablet) 1 Each Tablet, 1-2 EACH PO Q6H PRN for BREAK THRU DENTAL PAIN Prescribed by: BETH SOLANO on 02/09/192053 Ciprofloxacin HCl/Dexameth (Ciprodex Otic Suspension) 7.5 Ml Soln, 4 DROPS OT BID Prescribed by: HUANG FRANCO on 11/10/20 1301 Clindamycin HCl (Clindamycin HCl) 150 Mg Capsule, 300 MG PO QID Prescribed by: BETH SOLANO on 02/09/192053 Clindamycin HCl (Clindamycin HCl) 300 Mg Capsule, 300 MG PO Q8H Prescribed by: HUANG FRANCO on 08/15/19 1139 Clindamycin HCl (Clindamycin HCl) 150 Mg Capsule, 150 MG PO TID Prescribed by: HUANG FRANCO on 12/01/21 0916 Clindamycin HCl (Clindamycin HCl) 300 Mg Capsule, 300 MG PO TID Prescribed by: HUANG FRANCO on 12/01/21 0916 Codeine Sulfate (Codeine Sulfate) 30 Mg Tab, 30 MG PO every 6 hours Prescribed by: DAVID JUÁREZ on 06/27/20 1502 Diclofenac Sodium (Diclofenac Sodium) 75 Mg Tablet.dr, 75 MG PO BID Prescribed by: GAIL MAGANA on 12/05/19 0836 Doxycycline Hyclate (Doxycycline Hyclate) 100 Mg Tablet, 100 MG PO BID Prescribed by: ELENI CROWELL on 12/01/19 1118 Doxycycline Hyclate (Doxycycline Hyclate) 100 Mg Tablet, 100 MG PO BID Prescribed by: DAVID JUÁREZ on 06/27/20 1502 Doxycycline Hyclate (Doxycycline Hyclate) 100 Mg Tablet, 100 MG PO BID Prescribed by: HUANG FRANCO on 12/01/21 0916 Famotidine (Pepcid) 20 Mg Tablet, 20 MG PO BID Prescribed by: MICKY ROBLES on 06/11/22 1020 Hydrocodone/Acetaminophen (Hydrocodone-Acetamin 5-325 mg) 1 Each Tablet, 1 EACH PO Q6H PRN for PAIN-BREAKTHROUGH Prescribed by: MARIANNA GIBSON on 03/02/20 2028 Hydrocodone/Acetaminophen (Hydrocodone-Acetamin 5-325 mg) 1 Each Tablet, 1 TAB PO Q8H PRN for PAIN-MODERATE (5-7) Prescribed by: HUANG FRANCO on 11/10/20 1302 Hydroxyzine HCl (Hydroxyzine HCl) 50 Mg Tablet, 50 MG PO nightly Prescribed by: ELIA BOLANOS on 08/24/21 1747 Ibuprofen (Ibuprofen) 800 Mg Tablet, 800 MG PO Q8H PRN for PAIN Prescribed by: GAIL GARCIA on 01/10/19 1706 Ibuprofen (Ibuprofen) 800 Mg Tablet, 800 MG PO Q8H PRN for PAIN Prescribed by: MARIANNA GIBSON on 02/04/19 1454 Ibuprofen (Ibuprofen) 800 Mg Tablet, 800 MG PO Q8H PRN for PAIN Prescribed by: ELENI CROWELL on 12/01/19 1118 Ibuprofen (Ibuprofen) 800 Mg Tablet, 800 MG PO Q8H PRN for PAIN Prescribed by: ELIA BOLANOS on 02/17/22 2336 Ketorolac Tromethamine (Ketorolac Tromethamine) 10 Mg Tablet, 10 MG PO Q8H Prescribed by: ELIA BOLANOS on 08/12/22 1251 Levofloxacin (Levaquin) 500 Mg Tablet, 500 MG PO DAILY Prescribed by: MARIANNA GIBSON on 03/02/202027 Methylprednisolone (Methylprednisolone Dose Pack) 4 Mg Tablet, 4 MG PO UD Prescribed by: HUANG FRANCO on 06/29/20 0920 Morphine Sulfate (Morphine Sulfate IR Tablet) 15 Mg Tablet, 15 MG PO Q8H PRN for PAIN-SEVERE (8-10) Prescribed by: HUANG FRANCO on 08/15/19 1125 Mupirocin (Mupirocin) 22 Gm Oint...g., 22 GM TP TID Prescribed by: DAVID JUÁREZ on 06/27/20 1555 Mupirocin Calcium (Mupirocin) 15 Gm Cream..g., 1 GM TP TID Prescribed by: DAVID JUÁREZ on 06/27/20 1550 Naproxen (Naprosyn) 500 Mg Tablet, 500 MG PO BID Prescribed by: ELENI CROWELL on 04/21/20 1032 Naproxen (Naprosyn) 500 Mg Tablet, 500 MG PO BID Prescribed by: ELENI CROWELL on 09/30/20 1248 Ondansetron (Ondansetron Odt) 4 Mg Tab.rapdis, 4 MG SL Q4H PRN for NAUSEA/VOMITING Prescribed by: MICKY ROBLES on 06/11/22 1020 Propranolol HCl (Propranolol HCl) 20 Mg Tablet, 20 MG PO DAILY Prescribed by: MARIANNA GIBSON on 02/04/19 1420 Sulfamethoxazole/Trimethoprim (Bactrim Ds Tablet) 1 Each Tablet, 1 EACH PO BID Prescribed by: ELIA BOLANOS on 02/17/22 2258 Valacyclovir HCl (Valacyclovir) 1,000 Mg Tablet, 1,000 MG PO Q12H Prescribed by: ELIA BOLANOS on 08/12/22 1251 Review of Systems Review of Systems Constitutional: No fever Eyes: No Symptoms Reported Ears: No Symptoms Reported Nose: no symptoms reported Mouth: see HPI Throat: no symptoms reported Respiratory: no symptoms reported Cardiovascular: no symptoms reported Gastrointestinal: no symptoms reported Musculoskeletal: no symptoms reported Skin: no symptoms reported Neurological: No Symptoms Reported Hematologic/Lymphatic: No Symptoms Reported Immunological/Allergic: no symptoms reported All Other Systems Reviewed Negative Unless Noted: Yes Past Wonefgp-Nvvvoi-Sbtjam Hx Patient Social History Tobacco Use?: Yes Immunizations Up To Date Tetanus Booster (TDap): Less than 5yrs First/Initial COVID19 Vaccinat: Not currently vaccinated Second COVID19 Vaccination Behzad: Not currently vaccinated Third COVID19 Vaccination Date: Not currently vaccinated Seasonal Allergies Seasonal Allergies: No Past Medical History Surgery/Hospitalization HX: Hep C positive; substance abuse Surgeries: Yes (WISDOM TOOTH EXTRACTON) Appendectomy Respiratory: No Cardiac: Yes Hypertension Neurological: No Reproductive Disorders: No Genitourinary: No Gastrointestinal: No Musculoskeletal: Yes (hip dislocation and chronic pain) Endocrine: No HEENT: No Cancer: No Psychosocial: Yes Anxiety Integumentary: No (Cellulitis) Recent Skin Changes Blood Disorders: No Family Medical History No Pertinent Family Hx Physical Exam Vital Signs Vital Signs - First Documented 08/12/22 11:08 Temp 36.5 Pulse 77 Resp 16 B/P (MAP) 142/87 (105) Height, Weight, BMI Height: 6'0" Weight: 160lbs. oz. 72.247100ta; 22.00 BMI Method:Stated General Appearance: WD/WN, no apparent distress Eyes: bilateral eye normal inspection, bilateral eye PERRL, bilateral eye EOMI Ears: bilateral ear auricle normal, bilateral ear canal normal, bilateral ear TM normal Nose: normal inspection Mouth/Throat: other (Multiple roughly 1 cm sized blisters that appear hemorrhagic along his oral mucosa on the inside of his mouth including a couple on his tongue, erythema towards his pharynx with no obvious exudate or abscess, normal voice) Neck: non-tender, full range of motion, supple, normal inspection Cardiovascular: regular rate, rhythm, no edema, no murmur Respiratory: chest non-tender, lungs clear, normal breath sounds, no respiratory distress, no accessory muscle use Gastrointestinal: normal bowel sounds, non tender, soft; No distended, No guarding, No rebound Neurologic/Psychiatric: no motor/sensory deficits, alert, normal mood/affect Skin: normal color, warm/dry, other (No other redness or any type of rash seen along hands, feet, eyes) Procedures/Interventions Suture Size: 4-0 Progress/Results/Core Measures Results/Orders Lab Results Laboratory Tests Test 08/12/22 11:45 08/12/22 12:02 Range/Units White Blood Count 5.7 4.3-11.0 10^3/uL Red Blood Count 4.89 4.30-5.52 10^6/uL Hemoglobin 14.9 13.3-17.7 g/dL Hematocrit 44 40-54 % Mean Corpuscular Volume 90 80-99 fL Mean Corpuscular Hemoglobin 31 25-34 pg Mean Corpuscular Hemoglobin Concent 34 32-36 g/dL Red Cell Distribution Width 14.2 10.0-14.5 % Platelet Count 261 130-400 10^3/uL Mean Platelet Volume 9.6 9.0-12.2 fL Immature Granulocyte % (Auto) 0 % Neutrophils (%) (Auto) 66 42-75 % Lymphocytes (%) (Auto) 20 12-44 % Monocytes (%) (Auto) 10 0-12 % Eosinophils (%) (Auto) 4 0-10 % Basophils (%) (Auto) 0 0-10 % Neutrophils # (Auto) 3.8 1.8-7.8 10^3/uL Lymphocytes # (Auto) 1.1 1.0-4.0 10^3/uL Monocytes # (Auto) 0.6 0.0-1.0 10^3/uL Eosinophils # (Auto) 0.2 0.0-0.3 10^3/uL Basophils # (Auto) 0.0 0.0-0.1 10^3/uL Immature Granulocyte # (Auto) 0.0 0.0-0.1 10^3/uL Erythrocyte Sedimentation Rate 3 0-15 MM/HR Sodium Level 136 135-145 MMOL/L Potassium Level 4.7 3.6-5.0 MMOL/L Chloride Level 102 98-107 MMOL/L Carbon Dioxide Level 27 21-32 MMOL/L Anion Gap 7 5-14 MMOL/L Blood Urea Nitrogen 10 7-18 MG/DL Creatinine 0.73 0.60-1.30 MG/DL Estimat Glomerular Filtration Rate 119 BUN/Creatinine Ratio 14 Glucose Level 99 70-105 MG/DL Calcium Level 9.1 8.5-10.1 MG/DL C-Reactive Protein < 0.30 <0.50 MG/DL Urine Color YELLOW Urine Clarity CLEAR Urine pH 7.0 5-9 Urine Specific [place] 1.015 L 1.016-1.022 Urine Protein NEGATIVE NEGATIVE Urine Glucose (UA) NEGATIVE NEGATIVE Urine Ketones NEGATIVE NEGATIVE Urine Nitrite NEGATIVE NEGATIVE Urine Bilirubin NEGATIVE NEGATIVE Urine Urobilinogen 0.2 < = 1.0 MG/DL Urine Leukocyte Esterase NEGATIVE NEGATIVE Urine RBC (Auto) NEGATIVE NEGATIVE Urine RBC NONE /HPF Urine WBC RARE /HPF Urine Squamous Epithelial Cells NONE /HPF Urine Crystals NONE /LPF Urine Bacteria NEGATIVE /HPF Urine Casts NONE /LPF Urine Mucus NEGATIVE /LPF Urine Culture Indicated NO Urine Opiates Screen NEGATIVE NEGATIVE Urine Oxycodone Screen NEGATIVE NEGATIVE Urine Methadone Screen NEGATIVE NEGATIVE Urine Propoxyphene Screen NEGATIVE NEGATIVE Urine Barbiturates Screen NEGATIVE NEGATIVE Ur Tricyclic Antidepressants Screen NEGATIVE NEGATIVE Urine Phencyclidine Screen NEGATIVE NEGATIVE Urine Amphetamines Screen NEGATIVE NEGATIVE Urine Methamphetamines Screen NEGATIVE NEGATIVE Urine Benzodiazepines Screen NEGATIVE NEGATIVE Urine Cocaine Screen NEGATIVE NEGATIVE Urine Cannabinoids Screen NEGATIVE NEGATIVE My Orders Orders - ELIA BOLANOS MD Basic Metabolic Panel (08/12/22 11:20) Cbc With Automated Diff (08/12/22 11:20) Acetaminophen Tablet (Tylenol Tablet) (08/12/22 11:30) Lidocaine 2% Viscous 15 Ml (Xylocaine Vi (08/12/22 11:30) Antacid Suspension (Mylanta Suspension (08/12/22 11:30) Erythrocyte Sedimentation Rate (08/12/22 11:25) Crp Fs (08/12/22 11:25) Drug Screen Stat (Urine) (08/12/22 11:26) Ua Culture If Indicated (08/12/22 11:26) Chest Pa/Lat (2 View) (08/12/22 11:26) Medications Given in ED Current Medications Medications Dose Ordered Sig/Emma Route Start Time Stop Time Status Last Admin Dose Admin Acetaminophen 1,000 mg ONCE ONCE PO 08/12/22 11:30 08/12/22 11:31 DC 08/12/22 11:36 1,000 MG Al Hydrox/Mg Hydrox/Simethicone 30 ml ONCE ONCE PO 08/12/22 11:30 08/12/22 11:31 DC 08/12/22 11:36 30 ML Lidocaine HCl 15 ml ONCE ONCE PO 08/12/22 11:30 08/12/22 11:31 DC 08/12/22 11:36 15 ML Vital Signs/I&O 08/12/22 11:08 Temp 36.5 Pulse 77 Resp 16 B/P (MAP) 142/87 (105) Blood Pressure Mean: 105 Progress Progress Note : Progress Note 37-year-old male with above history coming in due to sores in his mouth. ABCs were intact and vitals were stable on presentation. Physical exam with some hemorrhagic blisters in his mouth, no other rash or findings anywhere else. Basic labs were obtained including inflammatory markers. CRP is undetectably low, white blood cell count normal, ESR 3 which is normal, normal kidney function. Urinalysis with no abnormalities including no blood in his urine or protein. Chest x-ray clear. Very unlikely that this would be any type of vasculitis given these normal labs and work-up otherwise. Although it does not look exactly like this, Kaposi's sarcoma on the differential, less likely given he has had negative HIV test even recently. I contacted his PCP, Dr. Fishman and discussed the case with her. She will follow him up if things do not improve. She did recommend a course of acyclovir which I will prescribe. Diagnostic Imaging Diagonstic Imaging: Xray (chest) Comments [facility], [place] NAME: RASHIDGRECIA D [facility] REC#: [id number] PT STATUS: REG ER : 1985 PHYSICIAN: ELIA BOLANOS MD ADMIT DATE: 08/12/22/ER FS Draft Date of Exam:08/12/22 CHEST PA/LAT (2 VIEW) EXAM: CHEST PA/LAT (2 VIEW) INDICATION: Cough. Vasculitis. COMPARISON: Chest radiograph 06/11/2022. FINDINGS: Normal heart size and central pulmonary vascularity. Lungs are clear. No pleural effusion or pneumothorax. No acute osseous findings. IMPRESSION: No acute cardiopulmonary findings. Dictated on workstation # [id number] Dict: 08/12/22 1142 Trans: 08/12/22 1145 [id number] Interpreted by: GUCCI JACK MD Electronically signed by: Departure Impression Primary Impression: Non-thermal blister of oral cavity Qualified Codes: S00.522A - Blister (nonthermal) of oral cavity, initial encounter Disposition: 01 HOME, SELF-CARE Condition: Stable Departure-Patient Inst. Decision time for Depature: 13:00 Referrals: NO,LOCAL PHYSICIAN (PCP/Family) Primary Care Physician Patient Instructions: Blisters Add. Discharge Instructions: It is possible these could be cold sore related which is from a virus, we will start you on a course of antivirals. You can also take Toradol which was prescribed for you as well with [id number] Tylenol. We have also called in a prescription to the pharmacy for Magic mouthwash. You will put 5-10 mL in your mouth at a time, swish it around, and spit it out every 4 hours as needed for pain. Follow-up with your doctor in the next 1 to 2 weeks if things are not improving Scripts Ketorolac Tromethamine (Ketorolac Tromethamine) 10 Mg Tablet 10 MG PO Q8H for 4 Days, #12 TAB Prov: EILA BOLANOS MD 08/12/22 Valacyclovir HCl (Valacyclovir) 1,000 Mg Tablet 1000 MG PO Q12H for 7 Days, #14 TAB Prov: ELIA BOLANOS MD 08/12/22 Work/School Note: Work Release Form Date Seen in the Emergency Department: Aug 12, 2022 Return to Work: Aug 13, 2022 Restrictions: No Restrictions ELIA BOLANOS MD Aug 12, 2022 11:51
[2022-08-12 11:53] LABS: BASOPHILS % (AUTO) 0 % (0-10); EOSINOPHILS # (AUTO) 0.2 10^3/uL (0.0-0.3); EOSINOPHILS % (AUTO) 4 % (0-10); HEMATOCRIT 44 % (40-54); HEMOGLOBIN 14.9 g/dL (13.3-17.7); LYMPHOCYTES # (AUTO) 1.1 10^3/uL (1.0-4.0); LYMPHOCYTES % (AUTO) 20 % (12-44); MEAN CORPUSCULAR HEMOGLOBIN 31 pg (25-34); MEAN CORPUSCULAR HGB CONC 34 g/dL (32-36); MEAN CORPUSCULAR VOLUME 90 fL (80-99); MEAN PLATELET VOLUME 9.6 fL (9.0-12.2); MONOCYTES # (AUTO) 0.6 10^3/uL (0.0-1.0); MONOCYTES % (AUTO) 10 % (0-12); NEUTROPHILS # (AUTO) 3.8 10^3/uL (1.8-7.8); NEUTROPHILS % (AUTO) 66 % (42-75); PLATELET COUNT 261 10^3/uL (130-400); WHITE BLOOD COUNT 5.7 10^3/uL (4.3-11.0)
[2022-08-12 12:12] LABS: BILIRUBIN,URINE NEGATIVE (NEGATIVE); CLARITY,URINE CLEAR; COLOR,URINE YELLOW; GLUCOSE, URINE (UA) NEGATIVE (NEGATIVE); KETONES,URINE NEGATIVE (NEGATIVE); LEUKOCYTE ESTERASE ,URINE NEGATIVE (NEGATIVE); NITRITE,URINE NEGATIVE (NEGATIVE); PROTEIN,URINE NEGATIVE (NEGATIVE)
[2022-08-12 12:25] LABS: BACTERIA,URINE NEGATIVE /HPF; WBC,URINE RARE /HPF
[2022-08-12 12:26] LABS: AMPHETAMINE SCREEN, URINE NEGATIVE (NEGATIVE); BARBITURATE SCREEN URINE NEGATIVE (NEGATIVE); BENZODIAZEPINES SCREEN URINE NEGATIVE (NEGATIVE); CANNABINOID SCREEN, URINE NEGATIVE (NEGATIVE); COCAINE SCREEN URINE NEGATIVE (NEGATIVE); METHADONE STAT NEGATIVE (NEGATIVE); OPIATE SCREEN URINE NEGATIVE (NEGATIVE); OXYCODONE STAT NEGATIVE (NEGATIVE); PROPOXYPHENE STAT NEGATIVE (NEGATIVE); TRICYCLIC ANTIDEPRESSANTS SCRE NEGATIVE (NEGATIVE)
[2022-08-12 12:32] LABS: ERYTHROCYTE SEDIMENTATION RATE 3 MM/HR (0-15)
[2022-08-12 12:33] LABS: POTASSIUM 4.7 MMOL/L (3.6-5.0); SODIUM 136 MMOL/L (135-145)
[2022-08-12 12:34] LABS: BUN/CREATININE RATIO 14; CALCIUM 9.1 MG/DL (8.5-10.1); CARBON DIOXIDE 27 MMOL/L (21-32); CHLORIDE 102 MMOL/L (98-107); CREATININE SERUM 0.73 MG/DL (0.60-1.30); GFR ESTIMATED 119; GLUCOSE 99 MG/DL (70-105)
[2022-08-12] MEDS ORDERED: VALA10007 PO (12:51)
[2022-08-12] MEDS ORDERED: KETO10TA PO (12:51)
[2022-08-12] MEDS ORDERED: KETOROLAC 15 MG/ML VIAL IM ONE (13:00)
== END 2022-08-12 13:05 | disposition home or self-care (01) ==
LOC: EDUNIT# 11:03 → ER FS 11:04
DX: S00.522A Blister (nonthermal) of oral cavity, initial encounter (principal); Z88.5 Allergy status to narcotic agent; Z28.310 Unvaccinated for COVID-19; X58.XXXA Exposure to other specified factors, initial encounter
CPT/HCPCS: 36415; 71046; 80048; 80306; 81000; 85025; 85652; 86141

== ENCOUNTER 2022-08-13 13:21 | Emergency (ER) | payer SELFPAY ==
[~2022-08-13] VITALS: Ht 182.9 cm; Wt 75.3 kg
[~2022-08-13 13:21] MED LIST changes: +KETO10TA PO; +VALA10007 PO
[2022-08-13 13:24] VITALS: BP 155/103
--- NOTE | 2022-08-13 13:52 | ED EENT ---
History of Present Illness General Chief Complaint: Oral/Throat Problems Stated Complaint: ORAL SORES Nursing Triage Note: Patient seen in the ED yesterday for oral sores. Patient states the sores are still hurting him and he has been unable to eat solid food d/t the pain. Source: patient Exam Limitations: no limitations History of Present Illness Date Seen by Provider: Aug 13, 2022 Time Seen by Provider: 13:35 Initial Comments 37-year-old male presents again for blisters in his mouth. He states they are worse than yesterday as they are bleeding and more painful. He was seen here yesterday and had an extensive work-up to include CRP, sed rate and blood work. He was ultimately discharged home with primary doctor follow-up and given antiviral medicine, Magic mouthwash and Toradol. His main concern now is that the lesions are bleeding. He states he is a non-smoker. He is having difficulty eating because of pain. He denies any difficulty breathing. Denies any sores elsewhere. Allergies and Home Medications Allergies Coded Allergies: Penicillins (Verified Allergy, Mild, 08/27/15) citalopram (Unverified Adverse Reaction, Unknown, 01/10/19) tramadol (Unverified Adverse Reaction, Unknown, 01/10/19) Patient Home Medication List Home Medication List Reviewed: Yes Acetaminophen with Codeine (Tylenol with Codeine #3 Tablet) 1 Each Tablet, 1-2 EACH PO Q6H PRN for BREAK THRU DENTAL PAIN Prescribed by: BETH SOLANO on 02/09/192053 Ciprofloxacin HCl/Dexameth (Ciprodex Otic Suspension) 7.5 Ml Soln, 4 DROPS OT BID Prescribed by: HUANG FRANCO on 11/10/20 1301 Clindamycin HCl (Clindamycin HCl) 150 Mg Capsule, 300 MG PO QID Prescribed by: BETH SOLANO on 02/09/192053 Clindamycin HCl (Clindamycin HCl) 300 Mg Capsule, 300 MG PO Q8H Prescribed by: HUANG FRANCO on 08/15/19 1139 Clindamycin HCl (Clindamycin HCl) 150 Mg Capsule, 150 MG PO TID Prescribed by: HUANG FRANCO on 12/01/21 0916 Clindamycin HCl (Clindamycin HCl) 300 Mg Capsule, 300 MG PO TID Prescribed by: HUANG FRANCO on 12/01/21 0916 Codeine Sulfate (Codeine Sulfate) 30 Mg Tab, 30 MG PO every 6 hours Prescribed by: DAVID JUÁREZ on 06/27/20 1502 Diclofenac Sodium (Diclofenac Sodium) 75 Mg Tablet.dr, 75 MG PO BID Prescribed by: GAIL MAGANA on 12/05/19 0836 Doxycycline Hyclate (Doxycycline Hyclate) 100 Mg Tablet, 100 MG PO BID Prescribed by: ELENI CROWELL on 12/01/19 1118 Doxycycline Hyclate (Doxycycline Hyclate) 100 Mg Tablet, 100 MG PO BID Prescribed by: DAVID JUÁREZ on 06/27/20 1502 Doxycycline Hyclate (Doxycycline Hyclate) 100 Mg Tablet, 100 MG PO BID Prescribed by: HUANG FRANCO on 12/01/21 0916 Famotidine (Pepcid) 20 Mg Tablet, 20 MG PO BID Prescribed by: MICKY ROBLES on 06/11/22 1020 Hydrocodone/Acetaminophen (Hydrocodone-Acetamin 5-325 mg) 1 Each Tablet, 1 EACH PO Q6H PRN for PAIN-BREAKTHROUGH Prescribed by: MARIANNA GBISON on 03/02/20 2028 Hydrocodone/Acetaminophen (Hydrocodone-Acetamin 5-325 mg) 1 Each Tablet, 1 TAB PO Q8H PRN for PAIN-MODERATE (5-7) Prescribed by: HUANG FRANCO on 11/10/20 1302 Hydroxyzine HCl (Hydroxyzine HCl) 50 Mg Tablet, 50 MG PO nightly Prescribed by: ELIA BOLANOS on 08/24/21 1747 Ibuprofen (Ibuprofen) 800 Mg Tablet, 800 MG PO Q8H PRN for PAIN Prescribed by: GAIL GARCIA on 01/10/19 1706 Ibuprofen (Ibuprofen) 800 Mg Tablet, 800 MG PO Q8H PRN for PAIN Prescribed by: MARIANNA GIBSON on 02/04/19 1454 Ibuprofen (Ibuprofen) 800 Mg Tablet, 800 MG PO Q8H PRN for PAIN Prescribed by: ELENI CROWELL on 12/01/19 1118 Ibuprofen (Ibuprofen) 800 Mg Tablet, 800 MG PO Q8H PRN for PAIN Prescribed by: ELIA BOLANOS on 02/17/22 2336 Ketorolac Tromethamine (Ketorolac Tromethamine) 10 Mg Tablet, 10 MG PO Q8H Prescribed by: ELIA BOLANOS on 08/12/22 1251 Levofloxacin (Levaquin) 500 Mg Tablet, 500 MG PO DAILY Prescribed by: MARIANNA GIBSON on 03/02/202027 Methylprednisolone (Methylprednisolone Dose Pack) 4 Mg Tablet, 4 MG PO UD Prescribed by: HUANG FRANCO on 06/29/20 0920 Morphine Sulfate (Morphine Sulfate IR Tablet) 15 Mg Tablet, 15 MG PO Q8H PRN for PAIN-SEVERE (8-10) Prescribed by: HUANG FRANCO on 08/15/19 1125 Mupirocin (Mupirocin) 22 Gm Oint...g., 22 GM TP TID Prescribed by: DAVID JUÁREZ on 06/27/20 1555 Mupirocin Calcium (Mupirocin) 15 Gm Cream..g., 1 GM TP TID Prescribed by: DAVID JUÁREZ on 06/27/20 1550 Naproxen (Naprosyn) 500 Mg Tablet, 500 MG PO BID Prescribed by: ELENI CROWELL on 04/21/20 1032 Naproxen (Naprosyn) 500 Mg Tablet, 500 MG PO BID Prescribed by: ELENI CROWELL on 09/30/20 1248 Ondansetron (Ondansetron Odt) 4 Mg Tab.rapdis, 4 MG SL Q4H PRN for NAUSEA/VOMITING Prescribed by: MICKY ROBLES on 06/11/22 1020 Propranolol HCl (Propranolol HCl) 20 Mg Tablet, 20 MG PO DAILY Prescribed by: MARIANNA GIBSON on 02/04/19 1420 Sulfamethoxazole/Trimethoprim (Bactrim Ds Tablet) 1 Each Tablet, 1 EACH PO BID Prescribed by: ELIA BOLANOS on 02/17/22 2258 Valacyclovir HCl (Valacyclovir) 1,000 Mg Tablet, 1,000 MG PO Q12H Prescribed by: ELIA BOLANOS on 08/12/22 1251 Review of Systems Review of Systems Constitutional: no symptoms reported Eyes: No Symptoms Reported Ears: No Symptoms Reported Nose: no symptoms reported Mouth: other (Painful blisters) Throat: no symptoms reported Respiratory: no symptoms reported Cardiovascular: no symptoms reported Gastrointestinal: no symptoms reported Musculoskeletal: no symptoms reported Skin: no symptoms reported Neurological: No Symptoms Reported Hematologic/Lymphatic: No Symptoms Reported Immunological/Allergic: no symptoms reported Past Rlwqeck-Eojeaq-Oowand Hx Patient Social History Tobacco Use?: No Substance use?: No Alcohol Use?: No Pt feels they are or have been: No Immunizations Up To Date Tetanus Booster (TDap): Less than 5yrs First/Initial COVID19 Vaccinat: Not currently vaccinated Second COVID19 Vaccination Behzad: Not currently vaccinated Third COVID19 Vaccination Date: Not currently vaccinated Seasonal Allergies Seasonal Allergies: No Past Medical History Surgery/Hospitalization HX: Hep C positive; substance abuse Surgeries: Yes (WISDOM TOOTH EXTRACTON) Appendectomy Respiratory: No Cardiac: Yes Hypertension Neurological: No Reproductive Disorders: No Genitourinary: No Gastrointestinal: No Musculoskeletal: Yes (hip dislocation and chronic pain) Endocrine: No HEENT: No Cancer: No Psychosocial: Yes Anxiety Integumentary: No (Cellulitis) Recent Skin Changes Blood Disorders: No Family Medical History Reviewed Nursing Family Hx No Pertinent Family Hx Physical Exam Vital Signs Vital Signs - First Documented 08/13/22 13:24 Temp 36.3 Pulse 92 Resp 16 B/P (MAP) 155/103 (120) Pulse Ox 98 O2 Delivery Room Air Height, Weight, BMI Height: 6'0" Weight: 160lbs. oz. [id number]; 22.00 BMI Method:Stated General Appearance: WD/WN, no apparent distress Eyes: bilateral eye normal inspection, bilateral eye PERRL, bilateral eye EOMI Ears: bilateral ear auricle normal, bilateral ear canal normal, bilateral ear TM normal Nose: normal inspection Mouth/Throat: other (There are approximately ten 1 cm blisters that appear hemorrhagic, black in his mouth. Some have been unroofed and have raw skin underneath. No active bleeding. Normal palate. Most involve the buccal mucosa, tongue and lips.) Neck: non-tender, supple, normal inspection Cardiovascular: regular rate, rhythm, no murmur Respiratory: chest non-tender, normal breath sounds, no respiratory distress, no accessory muscle use Gastrointestinal: normal bowel sounds, non tender, soft, no organomegaly Neurologic/Psychiatric: alert, normal mood/affect, oriented x 3 Skin: normal color, warm/dry; No rash Procedures/Interventions Suture Size: 4-0 Progress/Results/Core Measures Results/Orders Vital Signs/I&O 08/13/22 13:24 Temp 36.3 Pulse 92 Resp 16 B/P (MAP) 155/103 (120) Pulse Ox 98 O2 Delivery Room Air Blood Pressure Mean: 120 Departure Communication (Admissions) Patient is hemodynamically stable no evidence for airway compromise. Unclear the cause of his oral ulcerations. They do not appear to be systemic, isolated to his mouth alone. No indication for systemic HSV or other infection. He had lab work-up yesterday with a normal white blood cell count, normal inflammatory markers making vasculitis unlikely but still possible. This does not look like bullous pemphigoid, Mclain-Haroon, toxic epidermal necrolysis. No palatal involvement or airway involvement. While this does look like a concerning rash it does not seem like one of the emergent life-threatening rashes and likely to be helped by anything we have to provide in the emergency department outside of that already given. He will continue to take his antivirals, Toradol and Magic mouthwash. I advised him to follow-up with his primary doctor in 24 hours for possible referral to medical record retrieval specialist or hospital staff pharmacist for biopsy. He states understanding and is visibly frustrated that we cannot provide this care here in the emergency department. I discussed the nature of her care in the emergency department and he states understanding though again he is visibly frustrated. Regardless he is given strict return precautions, especially airway involvement or spread of the rash, fevers or other systemic symptoms. He states understanding. He is discharged in stable condition. Impression Primary Impression: Blister (nonthermal) of oral cavity, subsequent encounter Additional Impression: Stomatitis and mucositis Disposition: 01 HOME, SELF-CARE Condition: Stable Departure-Patient Inst. Referrals: NO,LOCAL PHYSICIAN (PCP/Family) Primary Care Physician Patient Instructions: Mouth Sores (DC) Add. Discharge Instructions: It is unclear what exactly the sores are in your mouth at this time however I do not think they are from an emergent cause. I do think these need further evaluation, likely with a medical record retrieval specialist or hospital staff pharmacist for possible biopsy. I recommend you see your primary doctor for a referral. As discussed I do not see any indication for transfer to a different facility at this time. Your work-up yesterday was low risk for vasculitis however it is still a possibility. Continue to use the antiviral medicines as well as the Magic mouthwash prescribed previously. Return to the emergency department for any severe concerns, difficulty breathing. See your primary doctor in the next 24 to 48 hours. All discharge instructions reviewed with patient and/or family. Voiced understanding. GURMEET FARNSWORTH DO Aug 13, 2022 13:52
== END 2022-08-13 13:56 | disposition home or self-care (01) ==
LOC: EDUNIT# 13:21 → ER FS 13:22
DX: S00.522D Blister (nonthermal) of oral cavity, subsequent encounter (principal); K12.1 Other forms of stomatitis; K12.30 Oral mucositis (ulcerative), unspecified; X58.XXXA Exposure to other specified factors, initial encounter
CPT/HCPCS: 99281

== ENCOUNTER 2022-08-16 10:50 | Observation (INO) | payer SELFPAY ==
[~2022-08-16] VITALS: Ht 182.9 cm; Wt 79.5 kg
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
[2022-08-16] MEDS ORDERED: NS IV 1000 ML 1,000 ML IV SCH ×2 (11:15→11:30)
[2022-08-16] MEDS ORDERED: NS IV 1000 ML 1,000 ML ONE (11:21)
[2022-08-16 11:25] LABS: BASOPHILS % (AUTO) 0 % (0-10); EOSINOPHILS % (AUTO) 1 % (0-10); HEMATOCRIT 21 % (40-54); HEMOGLOBIN 7.3 g/dL (13.3-17.7); LYMPHOCYTES # (AUTO) 1.2 10^3/uL (1.0-4.0); LYMPHOCYTES % (AUTO) 17 % (12-44); MEAN CORPUSCULAR HEMOGLOBIN 31 pg (25-34); MEAN CORPUSCULAR HGB CONC 34 g/dL (32-36); MEAN CORPUSCULAR VOLUME 90 fL (80-99); MEAN PLATELET VOLUME 9.5 fL (9.0-12.2); MONOCYTES % (AUTO) 13 % (0-12); NEUTROPHILS % (AUTO) 69 % (42-75); PLATELET COUNT 191 10^3/uL (130-400); WHITE BLOOD COUNT 7.2 10^3/uL (4.3-11.0)
[2022-08-16 11:46] LABS: ALBUMIN 3.4 GM/DL (3.2-4.5); BILIRUBIN,TOTAL 0.7 MG/DL (0.1-1.0); CALCIUM 8.2 MG/DL (8.5-10.1); CREATININE SERUM 0.71 MG/DL (0.60-1.30); POTASSIUM 4.4 MMOL/L (3.6-5.0); TOTAL PROTEIN 5.8 GM/DL (6.4-8.2)
[2022-08-16] MEDS ORDERED: CATHETER FLUSH 10 ML SYR IV PRN (12:00)
[2022-08-16] MEDS ORDERED: NS 100 ML (IVPB) BAG IV ONE (12:00)
[2022-08-16] MEDS ORDERED: IOHEXOL 350 MG/ML 100 ML (OMNIPAQUE 350) VIAL IV ONE (12:00)
[2022-08-16] MEDS ORDERED: HOLD METFORMIN - RECEIVED CONTRAST 20 ML VIAL IV SCH (12:00)
--- NOTE | 2022-08-16 12:35 | Diagnostic Imaging Report ---
PROCEDURE: CT head without contrast. TECHNIQUE: Multiple contiguous axial images were obtained through the brain without the use of intravenous contrast. Auto Exposure Controls were utilized during the CT exam to meet ALARA standards for radiation dose reduction. INDICATION: Weakness and fall. No prior studies are available for comparison. Ventricles and sulci are within normal limits. No sulcal effacement or midline shift is identified. No acute intra-axial or extra-axial hemorrhage is detected. Cisterns are patent. Visualized paranasal sinuses are clear. IMPRESSION: No acute intracranial process is detected. Dictated by: Dictated on workstation # [id number]
--- NOTE | 2022-08-16 12:38 | Diagnostic Imaging Report ---
PROCEDURE: CT abdomen and pelvis with contrast. TECHNIQUE: Multiple contiguous axial images were obtained through the abdomen and pelvis after administration of intravenous contrast. Auto Exposure Controls were utilized during the CT exam to meet ALARA standards for radiation dose reduction. All CT scans use one or more of the following dose optimizing techniques: Automated exposure control, MA and/or KvP adjustment based on patient size and exam type or iterative reconstruction. INDICATION: Weakness, wobbly legs resulted in a fall with some bruising to the right face, also with rectal bleeding. COMPARISON: No priors. FINDINGS: Lung bases are clear. Visualized lower ribs are intact. Lumbar spine, sacrococcygeal segments, and bony pelvis appeared intact. There is no intra- or retro-peritoneal hemorrhage. The appendix is absent. Liver, gallbladder, bile ducts, spleen, adrenals, and pancreas are unremarkable. The unobstructed kidneys were normal. There is no small or large bowel obstruction. No enteritis or colitis. No mass or lymphadenopathy. No focal inflammatory changes. IMPRESSION: No hemorrhage, obstruction, fracture, inflammatory process, or acute abnormalities identified. Dictated by: Dictated on workstation # [id number]
[2022-08-16 12:39] LABS: AMPHETAMINE SCREEN, URINE POSITIVE (NEGATIVE); BARBITURATE SCREEN URINE NEGATIVE (NEGATIVE); BENZODIAZEPINES SCREEN URINE NEGATIVE (NEGATIVE); CANNABINOID SCREEN, URINE NEGATIVE (NEGATIVE); COCAINE SCREEN URINE NEGATIVE (NEGATIVE); METHADONE STAT NEGATIVE (NEGATIVE); OPIATE SCREEN URINE NEGATIVE (NEGATIVE); OXYCODONE STAT NEGATIVE (NEGATIVE); PROPOXYPHENE STAT NEGATIVE (NEGATIVE); TRICYCLIC ANTIDEPRESSANTS SCRE NEGATIVE (NEGATIVE)
[2022-08-16 13:06] LABS: PROTHROMBIN TIME PATIENT > 45.0 SEC (12.2-14.7)
[2022-08-16] MEDS ORDERED: morphine INJ 10 MG/ML 1ML (SYR OR VIAL) IVP STA (13:28)
[2022-08-16] MEDS: PANTOPRAZOLE 40 MG (PROTONIX) VIAL IV SCH ×2 (13:36→19:57)
[2022-08-16] MEDS ORDERED: ONDANSETRON 4 MG (ZOFRAN) ORAL DISSOLVE TAB PO PRN (15:15)
[2022-08-16] MEDS ORDERED: ACETAMINOPHEN 325 MG TABLET PO PRN (15:15)
[2022-08-16] MEDS ORDERED: BISACODYL 10 MG SUPP (DULCOLAX) PR PRN (15:15)
[2022-08-16] MEDS ORDERED: diphenhydrAMINE 50 MG/ML INJ (BENADRYL) IVP PRN (15:15)
[2022-08-16] MEDS ORDERED: MELATONIN 3 MG TABLET PO PRN (15:15)
[2022-08-16] MEDS ORDERED: SENNA W/DOCUSATE (SENOKOT S) TABLET PO PRN (15:15)
[2022-08-16] MEDS ORDERED: diphenhydrAMINE 25 MG TAB (BENADRYL) PO PRN (15:15)
[2022-08-16] MEDS ORDERED: ONDANSETRON 4 MG/2 ML (SDV) Z0FRAN IV PRN ×2 (15:15)
[2022-08-16] MEDS ORDERED: LORazepam 1 MG (ATIVAN) TAB PO PRN (15:15)
[2022-08-16] MEDS ORDERED: LORazepam INJ 2 MG/ML (ATIVAN) VIAL IM/IV PRN (15:15)
[2022-08-16] MEDS ORDERED: ANTACID SUSP 30 ML UDC (MYLANTA) PO PRN ×2 (15:15)
[2022-08-16] MEDS ORDERED: 1/2 NS IV SOLUTION 1,000 ML IV PRN (15:15)
[2022-08-16] MEDS ORDERED: ONDANSETRON 4 MG (ZOFRAN) ORAL DISSOLVE TAB SL PRN (15:15)
[2022-08-16] MEDS ORDERED: D5 1/2 NS 1000 ML IV SOLUTION 1,000 ML IV PRN (15:15)
[2022-08-16] MEDS ORDERED: polyethylene glycoL POWDER 17 GM (MIRALAX) PACK PO PRN (15:15)
[2022-08-16] MEDS ORDERED: LORazepam INJ 2 MG/ML (ATIVAN) VIAL IV PRN (15:15)
[2022-08-16] MEDS: NS IV 1000 ML 1,000 ML IV SCH ×2 (15:37→23:24)
[2022-08-16 15:43] VITALS: BP 122/75
[2022-08-16] MEDS ORDERED: RT-ALBUTEROL SULF 2.5 MG/3 ML PRE-MIX VIAL INH PRN (15:45)
[2022-08-16 16:08] VITALS: BP 116/53
[2022-08-16 17:28] LABS: HEMOGLOBIN 6.1 g/dL (13.3-17.7)
[2022-08-16] MEDS: HYDROmorphone 2 MG/ML VIAL (DILAUDID) IV PRN ×3 (17:51→22:00)
[2022-08-16 19:52] VITALS: BP 120/69
[2022-08-16] MEDS: DOCUSATE SODIUM 100 MG (COLACE) CAP PO SCH (19:57)
[2022-08-16] MEDS: MAGNESIUM OXIDE (MAG-OX)400 MG TAB PO SCH (19:58)
--- NOTE | 2022-08-16 20:51 | Progress Note-Pre Operative ---
Pre-Operative Progress Note Date of Available H&P: Aug 16, 2022 Date H&P Reviewed: Aug 16, 2022 Time H&P Reviewed: 21:00 History & Physical: No changes noted Pre-Operative Diagnosis: sx anemia with dark tarry stools MAIK CASTRO MD Aug 16, 2022 20:51
[2022-08-16] MEDS ORDERED: PANTOPRAZOLE 40 MG (PROTONIX) VIAL IV SCH ×2 (21:00)
--- NOTE | 2022-08-16 21:10 | CONSULTATION REPORT ---
DATE OF SERVICE: 08/16/2022 ADMITTING PHYSICIAN: Debbie Mendoza DO HISTORY OF PRESENT ILLNESS: The patient is a 37-year-old male with vague complaints of crampy abdominal pain; however, this morning, he felt dizzy while standing up and ambulating. The patient states that this is not a new phenomenon and he has had some milder symptoms before in the past. Upon further questioning, he reports that he has noticed some darker stools in recent weeks as well. He does not report any nausea or vomiting. He also does not report any bright red blood per rectum. The patient was found to be methamphetamine positive and does drink alcohol. He was also found to have an elevated prothrombin time, likely consistent with some level of liver dysfunction, most likely secondary to alcohol abuse. Based on his presentation, he most likely has an upper gastrointestinal bleed and on this admission, we will proceed with an EGD. PAST MEDICAL HISTORY: Drug abuse, alcoholism, hypertension, anxiety, hepatitis C. PAST SURGICAL HISTORY: Appendectomy. ALLERGIES: PENICILLIN, CITALOPRAM, TRAMADOL. MEDICATIONS: Cipro, clindamycin, diclofenac, dicyclomine, famotidine, hydrocodone, hydroxyzine, methylprednisolone, levofloxacin, mupirocin, naproxen, Zofran, propranolol, Bactrim, valacyclovir. SOCIAL HISTORY: Positive for smoke, positive for methamphetamine. FAMILY HISTORY: Noncontributory. REVIEW OF SYSTEMS: A well-nourished male, currently in no acute distress. He is not experiencing any shortness of breath or difficulty breathing. No chest pain, palpitations, diaphoresis. Intermittent episodes of nausea and no vomiting. He does have some discomfort in the epigastric region upon deep palpation. No peritoneal signs. Dark tarry stools for the past few weeks. No bright red blood per rectum or dark tarry stools. No fever or chills. No recent inadvertent weight loss. All other review of systems are negative. PHYSICAL EXAMINATION: VITAL SIGNS: Temperature 36.9, blood pressure 120/69, pulse 99, respirations 14, pulse ox 99% on room air. CHEST: Few scattered rales bilaterally. HEART: Regular, no murmurs. EXTREMITIES: No lower extremity edema. Negative Homans sign. HEENT: No scleral icterus. No cervical lymphadenopathy. ABDOMEN: Soft with some mild epigastric pain upon deep palpation. No peritoneal signs. No hernias. SKIN: Warm and dry. LABORATORY DATA: WBC 7.2, hemoglobin 6.1, hematocrit 18, platelets 191. BUN 15, creatinine 0.71, total AST 82, alkaline phosphatase 36. Prothrombin time greater than 45. Urine drug screen positive for methamphetamine and amphetamine. ASSESSMENT AND PLAN: A 37-year-old male with anemia, most likely secondary to an upper gastrointestinal bleed. We will start him on IV PPI on a b.i.d. basis and a clear liquid diet and schedule him for an EGD on this admission. Most likely, the treatment modality will be medical where he will need to proceed with cessation of illicit drugs and alcohol and avoid spicy, greasy and acidic foods as well as caffeinated beverages. He will also need to take some form of proton pump inhibitor on a daily basis as well as Carafate for the next 2 weeks. Job ID: [id number] DocumentID: [id number] Dictated Date: 08/16/2022 20:50:09 Surgical Instrument Repair Specialist Date: 08/16/2022 21:08:00 Dictated By: MAIK CASTRO MD
[2022-08-16] MEDS ORDERED: NS IV 500 ML 500 ML IV SCH (21:30)
[2022-08-16] MEDS: LORazepam INJ 2 MG/ML (ATIVAN) VIAL IVP PRN (22:01)
[2022-08-16 22:19] VITALS: BP 106/69
[2022-08-16 22:41] VITALS: BP 108/65
[2022-08-17] VITALS (12 sets, daily range): BP systolic 78–127; BP diastolic 48–484
[2022-08-17] MEDS: HYDROmorphone 2 MG/ML VIAL (DILAUDID) IV PRN ×4 (00:25→08:09)
[2022-08-17] MEDS: LORazepam INJ 2 MG/ML (ATIVAN) VIAL IVP PRN (04:29)
[2022-08-17 05:32] LABS: BASOPHILS % (AUTO) 0 % (0-10); EOSINOPHILS # (AUTO) 0.1 10^3/uL (0.0-0.3); EOSINOPHILS % (AUTO) 2 % (0-10); LYMPHOCYTES # (AUTO) 1.8 10^3/uL (1.0-4.0); LYMPHOCYTES % (AUTO) 29 % (12-44); MEAN CORPUSCULAR HEMOGLOBIN 31 pg (25-34); MEAN CORPUSCULAR HGB CONC 34 g/dL (32-36); MEAN CORPUSCULAR VOLUME 91 fL (80-99); MEAN PLATELET VOLUME 9.8 fL (9.0-12.2); MONOCYTES # (AUTO) 0.9 10^3/uL (0.0-1.0); MONOCYTES % (AUTO) 15 % (0-12); NEUTROPHILS # (AUTO) 3.3 10^3/uL (1.8-7.8); NEUTROPHILS % (AUTO) 53 % (42-75); PLATELET COUNT 145 10^3/uL (130-400); WHITE BLOOD COUNT 6.2 10^3/uL (4.3-11.0)
[2022-08-17 05:40] LABS: HEMATOCRIT 17 % (40-54); HEMOGLOBIN 5.9 g/dL (13.3-17.7)
[2022-08-17] MEDS ORDERED: NS IV 500 ML 500 ML IV SCH (05:45)
[2022-08-17 05:55] LABS: BILIRUBIN,TOTAL 0.8 MG/DL (0.1-1.0); CALCIUM 7.5 MG/DL (8.5-10.1); CREATININE SERUM 0.67 MG/DL (0.60-1.30); POTASSIUM 4.2 MMOL/L (3.6-5.0); TOTAL PROTEIN 5.1 GM/DL (6.4-8.2)
--- NOTE | 2022-08-17 07:57 | History & Physical-Hospitalist ---
History of Present Illness Date Seen 08/17/22 Time Seen by a Provider: 11:30 Attending Physician Kristen,Local Physician PCP Admitting Physician: Debbie Mendoza DO Attending Physician: Debbie Mendoza DO Referring Physician Date of Admission Aug 16, 2022 at 15:05 Home Medications & Allergies Home Medications Reviewed patient Home Medication Reconciliation performed by pharmacy medication reconciliations industrial engineering technician and/or nursing. Patients Allergies have been reviewed. Allergies Allergies Coded Allergies Penicillins (Verified Allergy, Mild, 08/27/15) citalopram (Unverified Adverse Reaction, Unknown, 01/10/19) tramadol (Unverified Adverse Reaction, Unknown, 01/10/19) Past Vqibeyp-Udwodt-Mwwdhm Hx Patient Social History Tobacco Use?: No Smoking Status: Light Tobacco Smoker Smokeless Tobacco Frequency: Light User Use of E-Cig and/or Vaping dev: No Substance use?: Yes Substance type: Amphetamines, Methamphetamine Additional substance use comme: HX: meth use. Denies current use Substance frequency: Daily Alcohol Use?: Yes Alcohol type: Beer, Hard Liquor, Wine Alcohol Frequency: Couple times a week Pt feels they are or have been: No Immunizations Up To Date First/Initial COVID19 Vaccinat: Not currently vaccinated Second COVID19 Vaccination Behzad: Not currently vaccinated Tetanus Booster (TDap): Less Than 5 Years Seasonal Allergies Seasonal Allergies: No Current Status Advance Directives: No Primary Language: Danish Preferred Spoken Language: Danish Past Medical History Surgeries: Appendectomy Hypertension Anxiety Recent Skin Changes Blood Disorders: No Family Medical History No Pertinent Family Hx Physical Exam Physical Exam Vital Signs Vital Signs - First Documented 08/16/22 08/16/22 10:59 15:43 Temp 36.9 Pulse 119 Resp 16 B/P (MAP) 126/78 (94) Pulse Ox 100 O2 Delivery Room Air FiO2 21 Capillary Refill : Less Than 3 Seconds Height, Weight, BMI Height: 6'0" Weight: 160lbs. oz. 72.046763rg; 23.76 BMI Method:Stated Results Results/Procedures Labs Laboratory Tests 08/16/22 11:19 08/16/22 17:18 08/17/22 05:13 Patient resulted labs reviewed. Clinical Quality Measures DVT/VTE Risk/Contraindication: Contraindications-Pharm: Other *list below* Other: DEBBIE ROMERO DO Aug 17, 2022 07:57
[2022-08-17] MEDS: MAGNESIUM OXIDE (MAG-OX)400 MG TAB PO SCH (08:12)
[2022-08-17] MEDS: PANTOPRAZOLE 40 MG (PROTONIX) VIAL IV SCH (08:12)
[2022-08-17] MEDS: DOCUSATE SODIUM 100 MG (COLACE) CAP PO SCH (08:12)
[2022-08-17] MEDS ORDERED: LACTATED RINGERS 1,000 ML IV STA (09:47)
[2022-08-17] MEDS ORDERED: LIDOCAINE JELLY 2% 6 ML SYRINGE MM PRN (10:00)
[2022-08-17] MEDS ORDERED: HURRICAINE EXT TUBE (BENZOCAINE) XX PRN (10:00)
[2022-08-17] MEDS: NS IV 1000 ML 1,000 ML IV SCH (10:10)
[2022-08-17] MEDS ORDERED: MIDAZOLAM 2 MG/2 ML (VERSED) VIAL ONE (10:11)
[2022-08-17] MEDS ORDERED: fentaNYL INJ 100 MCG/2 ML AMP ONE (10:11)
[2022-08-17] MEDS ORDERED: proPOfol 200 MG/20 ML (DIPRIVAN) VIAL IV ONE (10:11)
[2022-08-17] MEDS ORDERED: PROPOFOL INJECTION 50 ML IV ONE (10:40)
--- NOTE | 2022-08-17 11:37 | Short Stay Summary-Hospitalist ---
History of Present Illness HPI/Chief Complaint Chief complaint: GI bleed HPI: This is a 37-year-old meth and drug user who presents to the [place] ER with weakness found to have hemoglobin of 7 and findings consistent with GI bleed. He underwent scope by Dr. CASTRO and required 3 units of blood. Recommendations to stop using meth and naproxen. Source: patient Exam Limitations: clinical condition (Meth withdrawal) Date Seen 08/17/22 Time Seen by a Provider: 12:00 Attending Physician No,Local Physician PCP Admitting Physician: Debbie Mendoza DO Attending Physician: Debbie Mendoza DO Referring Physician Date of Admission Aug 16, 2022 at 15:05 Home Medications & Allergies Home Medications Reviewed patient Home Medication Reconciliation performed by pharmacy medication reconciliations echo technician and/or nursing. Patients Allergies have been reviewed. Allergies Allergies Coded Allergies Penicillins (Verified Allergy, Mild, 08/27/15) citalopram (Unverified Adverse Reaction, Unknown, 01/10/19) tramadol (Unverified Adverse Reaction, Unknown, 01/10/19) Past Onzzokd-Jllhzu-Dqydro Hx Patient Social History Marrital Status: single Employed/Student: unemployed Tobacco Use?: No Smoking Status: Light Tobacco Smoker Smokeless Tobacco Frequency: Light User Use of E-Cig and/or Vaping dev: No Substance use?: Yes Substance type: Amphetamines, Methamphetamine Additional substance use comme: HX: meth use. Denies current use Substance frequency: Daily Alcohol Use?: Yes Alcohol type: Beer, Hard Liquor, Wine Alcohol Frequency: Couple times a week Pt feels they are or have been: No Immunizations Up To Date First/Initial COVID19 Vaccinat: Not currently vaccinated Second COVID19 Vaccination Behzad: Not currently vaccinated Tetanus Booster (TDap): Less Than 5 Years Seasonal Allergies Seasonal Allergies: No Current Status Advance Directives: No Primary Language: Slovak Preferred Spoken Language: Slovak Past Medical History Surgeries: Appendectomy Hypertension Anxiety Recent Skin Changes Blood Disorders: No Family Medical History No Pertinent Family Hx Review of Systems Constitutional: see HPI Physical Exam Physical Exam Vital Signs Vital Signs - First Documented 08/16/22 08/16/22 10:59 15:43 Temp 36.9 Pulse 119 Resp 16 B/P (MAP) 126/78 (94) Pulse Ox 100 O2 Delivery Room Air FiO2 21 Capillary Refill : Less Than 3 Seconds Height, Weight, BMI Height: 6'0" Weight: 160lbs. oz. 72.511078yj; 23.76 BMI Method:Stated General Appearance: No Apparent Distress, WD/WN HEENT: PERRL/EOMI, TMs Normal, Pharynx Normal, Other (Noted ecchymosis around under right eye and down by the mouth on the right side.) Neck: Non Tender, Supple Respiratory: Chest Non Tender, Lungs Clear Cardiovascular: Regular Rate, Rhythm, No Murmur Skin: Normal Color, Warm/Dry Results Results/Procedures Labs Laboratory Tests 08/16/22 11:19 08/16/22 17:18 08/17/22 05:13 Patient resulted labs reviewed. Short Stay Diagnosis Discharge Diagnosis-Short Stay Admission Diagnosis Symptomatic anemia GI bleed Meth user Noncompliance Final Discharge Diagnosis Symptomatic anemia GI bleed Meth user Noncompliance Conclusion Plan Discharge home Clinical Quality Measures DVT/VTE Risk/Contraindication: Contraindications-Pharm: Other *list below* Other: DEBBIE ROMERO DO Aug 17, 2022 11:37
[2022-08-17] MEDS ORDERED: PANT40TA2 PO (11:39)
[2022-08-17] MEDS ORDERED: SUCR1TAB36 PO (11:39)
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
--- NOTE | 2022-08-28 16:35 | Anesthesia-General Post-Op ---
MAC Significant Intra-Op Events Notes late entry from 08-17-22 at 1130 Patient Condition Mental Status/LOC: Same as Preop Cardiovascular: Satisfactory Nausea/Vomiting: Absent Respiratory: Satisfactory Pain: Controlled Complications: Absent Post Op Complications Complications None Follow Up Care/Instructions Patient Instructions None needed. Anesthesiology Discharge Order Discharge Order Patient is doing well, no complaints, stable vital signs, no apparent adverse anesthesia problems. No complications reported per nursing. DUTCH SIMON CRNA Aug 28, 2022 16:35
== END 2022-08-17 11:36 | disposition home or self-care (01) ==
LOC: EDUNIT# 10:50 → ER FS 10:53 → UNDOADMOB 15:05 → 4TH 15:05 → UNDODISOB 08-17 11:36
PROVIDERS: ADMIT Internal Medicine; ATTEND Internal Medicine
DX: D50.0 Iron deficiency anemia secondary to blood loss (chronic) (principal); K29.71 Gastritis, unspecified, with bleeding; F15.90 Other stimulant use, unspecified, uncomplicated; Z91.199 Patient's noncompliance with other medical treatment and regimen due to unspecified reason; K21.00 Gastro-esophageal reflux disease with esophagitis, without bleeding; K44.9 Diaphragmatic hernia without obstruction or gangrene; F41.9 Anxiety disorder, unspecified; F10.10 Alcohol abuse, uncomplicated; Y90.0 Blood alcohol level of less than 20 mg/100 ml; F17.200 Nicotine dependence, unspecified, uncomplicated; I10 Essential (primary) hypertension; Z28.310 Unvaccinated for COVID-19; Z28.9 Immunization not carried out for unspecified reason
CPT/HCPCS: 36415; 43239; 70450; 74177; 80053 ×2; 80306; 82274; 82947; 85014; 85018; 85025 ×2; 85610; 86850; 86900; 86901; 86920; 88305; 93005; 96374; 96375 ×2; 96376 ×2; 99283; G0480; P9016 ×2; 80320; Q9967

== ENCOUNTER 2022-08-19 13:53 | Emergency (ER) | payer SELFPAY ==
[~2022-08-19] VITALS: Ht 182 cm; Wt 68.0 kg
[~2022-08-19 13:53] MED LIST changes: +PANT40TA2 PO; +SUCR1TAB36 PO
[2022-08-19 15:04] LABS: BASOPHILS % (AUTO) 1 % (0-10); EOSINOPHILS # (AUTO) 0.2 10^3/uL (0.0-0.3); EOSINOPHILS % (AUTO) 2 % (0-10); HEMATOCRIT 23 % (40-54); HEMOGLOBIN 7.6 g/dL (13.3-17.7); LYMPHOCYTES # (AUTO) 1.5 10^3/uL (1.0-4.0); LYMPHOCYTES % (AUTO) 19 % (12-44); MEAN CORPUSCULAR HEMOGLOBIN 30 pg (25-34); MEAN CORPUSCULAR HGB CONC 34 g/dL (32-36); MEAN CORPUSCULAR VOLUME 90 fL (80-99); MEAN PLATELET VOLUME 9.5 fL (9.0-12.2); MONOCYTES # (AUTO) 0.8 10^3/uL (0.0-1.0); MONOCYTES % (AUTO) 11 % (0-12); NEUTROPHILS % (AUTO) 65 % (42-75); PLATELET COUNT 231 10^3/uL (130-400); WHITE BLOOD COUNT 7.7 10^3/uL (4.3-11.0)
--- NOTE | 2022-08-19 15:18 | Diagnostic Imaging Report ---
PROCEDURE: CT head without contrast. TECHNIQUE: Multiple contiguous axial images were obtained through the brain without the use of intravenous contrast. Auto Exposure Controls were utilized during the CT exam to meet ALARA standards for radiation dose reduction. INDICATION: Syncope COMPARISON: 08/16/2022 FINDINGS: Minimal mineralization within the bilateral basal ganglia again noted. No intracranial hemorrhage. No intracranial mass, mass effect, midline shift, herniation, hydrocephalus, or extra-axial fluid collection. No CT evidence of an acute ischemic infarction. The orbits are unremarkable. The paranasal sinuses are clear. The calvarium and extra calvarial soft tissues are unremarkable. IMPRESSION: Stable examination without acute intracranial abnormality. Dictated by: Dictated on workstation # [id number]
--- NOTE | 2022-08-19 15:19 | Diagnostic Imaging Report ---
INDICATION: Syncope COMPARISON: 08/12/2022. TECHNIQUE: Single radiograph of the chest dated 08/19/2022. FINDINGS: The cardiac silhouette is within normal limits in size. No significant pulmonary vascular congestion. The lungs are clear. No pleural effusion. No pneumothorax. Moderate degenerative changes involving the right acromioclavicular joint. No acute osseous abnormality. IMPRESSION: Stable examination without acute cardiopulmonary abnormality. Dictated by: Dictated on workstation # [id number]
[2022-08-19 15:23] LABS: BILIRUBIN,TOTAL 1.1 MG/DL (0.1-1.0); CALCIUM 8.4 MG/DL (8.5-10.1); CREATININE SERUM 0.79 MG/DL (0.60-1.30); MAGNESIUM 1.9 MG/DL (1.6-2.4); POTASSIUM 3.5 MMOL/L (3.6-5.0)
[2022-08-19 15:24] LABS: ALBUMIN 3.7 GM/DL (3.2-4.5); TOTAL PROTEIN 6.2 GM/DL (6.4-8.2)
[2022-08-19 15:27] LABS: INR 1.9 (0.8-1.4); PROTHROMBIN TIME PATIENT 22.2 SEC (12.2-14.7)
[2022-08-19 15:34] VITALS: BP_SYST 100; BP_SYST 101; BP_SYST 90; BP_DIAS 47; BP_DIAS 55; BP_DIAS 57
--- NOTE | 2022-08-19 16:25 | ED Syncope ---
General Chief Complaint: General Problems/Pain Stated Complaint: FALL Nursing Triage Note: Patient has been brought to ER by EMS with cc of passing out. Patient reports that he was just seen by his doctor in the office, she had given him 5 new medications, he picked them up from the pharmacy and took 4 different pills while waiting on the cab. The cab picked him up and while getting out of the cab he passed out. EMS was called and he was brought to ER for evaluation. Source of Information: Patient, EMS History of Present Illness Date Seen by Provider: Aug 19, 2022 Time Seen by Provider: 14:38 Initial Comments 37-year-old male patient with history of hypertension and recent hospitalization at [facility] because of a fall and multiple ecchymosis and anemia brought in by EMS because of syncope. Patient states that he was discharged from hospital 3 days ago and seen by primary care physician today and had refill of lisinopril, pantoprazole, cephalexin, hydroxyzine and Tizanidine and took 4 of his 5 medications while waiting for the cab and had a syncopal episode in the fall when he got out of the cab and the cable television program director called 911. Patient had 2 units of blood transfusion in his recent hospitalization. Patient denies focal neurodeficit, chest pain before or after his fall, nausea and vomiting, new injury. Patient complaining of hurting all over that getting worse after his fall. Allergies and Home Medications Allergies Coded Allergies: Penicillins (Verified Allergy, Mild, 08/27/15) citalopram (Unverified Adverse Reaction, Unknown, 01/10/19) tramadol (Unverified Adverse Reaction, Unknown, 01/10/19) Patient Home Medication List Home Medication List Reviewed: Yes Ferrous Sulfate (Iron) 325 Mg (65 Mg Iron) Tablet, 325 MG PO TID Prescribed by: Meredith puga on 08/19/22 1634 Pantoprazole Sodium (Protonix) 40 Mg Tablet.dr, 40 MG PO DAILY Prescribed by: SHERI CRYSTAL on 08/17/22 1139 Sucralfate (Carafate) 1 Gram Tablet, 1 GM PO ACHS Prescribed by: SHERI CRYSTAL on 08/17/22 1139 Discontinued Medications Acetaminophen with Codeine (Tylenol with Codeine #3 Tablet) 1 Each Tablet, 1-2 EACH PO Q6H PRN for BREAK THRU DENTAL PAIN Prescribed by: BETH SOLANO on 02/09/192053 Ciprofloxacin HCl/Dexameth (Ciprodex Otic Suspension) 7.5 Ml Soln, 4 DROPS OT BID Prescribed by: HUANG FRANCO on 11/10/20 130 Clindamycin HCl (Clindamycin HCl) 150 Mg Capsule, 300 MG PO QID Prescribed by: BETH SOLANO on 02/09/192053 Clindamycin HCl (Clindamycin HCl) 300 Mg Capsule, 300 MG PO Q8H Prescribed by: HUANG FRANCO on 08/15/19 1139 Clindamycin HCl (Clindamycin HCl) 150 Mg Capsule, 150 MG PO TID Prescribed by: HUANG FRANCO on 12/01/21 09 Clindamycin HCl (Clindamycin HCl) 300 Mg Capsule, 300 MG PO TID Prescribed by: HUANG FRANOC on 12/01/21915 Codeine Sulfate (Codeine Sulfate) 30 Mg Tab, 30 MG PO every 6 hours Prescribed by: DAVID JUÁREZ on 06/27/20 1502 Diclofenac Sodium (Diclofenac Sodium) 75 Mg Tablet.dr, 75 MG PO BID Prescribed by: GAIL MAGANA on 12/05/19 0836 Doxycycline Hyclate (Doxycycline Hyclate) 100 Mg Tablet, 100 MG PO BID Prescribed by: ELENI CROWELL on 12/01/19 1118 Doxycycline Hyclate (Doxycycline Hyclate) 100 Mg Tablet, 100 MG PO BID Prescribed by: DAVID JUÁREZ on 06/27/20 1502 Doxycycline Hyclate (Doxycycline Hyclate) 100 Mg Tablet, 100 MG PO BID Prescribed by: HUANG FRANCO on 12/01/21 09 Famotidine (Pepcid) 20 Mg Tablet, 20 MG PO BID Prescribed by: MICKY ROBLES on 06/11/22 1020 Hydrocodone/Acetaminophen (Hydrocodone-Acetamin 5-325 mg) 1 Each Tablet, 1 EACH PO Q6H PRN for PAIN-BREAKTHROUGH Prescribed by: MARIANNA GIBSON on 03/02/202027 Hydrocodone/Acetaminophen (Hydrocodone-Acetamin 5-325 mg) 1 Each Tablet, 1 TAB PO Q8H PRN for PAIN-MODERATE (5-7) Prescribed by: HUANG FRANCO on 11/10/20 1302 Hydroxyzine HCl (Hydroxyzine HCl) 50 Mg Tablet, 50 MG PO nightly Prescribed by: ELIA BOLANOS on 08/24/21 1747 Ibuprofen (Ibuprofen) 800 Mg Tablet, 800 MG PO Q8H PRN for PAIN Prescribed by: GAIL GARCIA on 01/10/19 1706 Ibuprofen (Ibuprofen) 800 Mg Tablet, 800 MG PO Q8H PRN for PAIN Prescribed by: MARIANNA GIBSON on 02/04/19 1454 Ibuprofen (Ibuprofen) 800 Mg Tablet, 800 MG PO Q8H PRN for PAIN Prescribed by: ELENI CROWELL on 12/01/19 1118 Ibuprofen (Ibuprofen) 800 Mg Tablet, 800 MG PO Q8H PRN for PAIN Prescribed by: ELIA BOLANOS on 02/17/22 2336 Ketorolac Tromethamine (Ketorolac Tromethamine) 10 Mg Tablet, 10 MG PO Q8H Prescribed by: ELIA BOLANOS on 08/12/22 1251 Levofloxacin (Levaquin) 500 Mg Tablet, 500 MG PO DAILY Prescribed by: MARIANNA GIBSON on 03/02/202027 Methylprednisolone (Methylprednisolone Dose Pack) 4 Mg Tablet, 4 MG PO UD Prescribed by: HUANG FRANCO on 06/29/20 0920 Morphine Sulfate (Morphine Sulfate IR Tablet) 15 Mg Tablet, 15 MG PO Q8H PRN for PAIN-SEVERE (8-10) Prescribed by: HUANG FRANCO on 08/15/19 1125 Mupirocin (Mupirocin) 22 Gm Oint...g., 22 GM TP TID Prescribed by: DAVID JUÁREZ on 06/27/20 1555 Mupirocin Calcium (Mupirocin) 15 Gm Cream..g., 1 GM TP TID Prescribed by: DAVID JUÁREZ on 06/27/20 1550 Naproxen (Naprosyn) 500 Mg Tablet, 500 MG PO BID Prescribed by: ELENI CROWELL on 04/21/20 1032 Naproxen (Naprosyn) 500 Mg Tablet, 500 MG PO BID Prescribed by: ELENI CROWELL on 09/30/20 1248 Ondansetron (Ondansetron Odt) 4 Mg Tab.rapdis, 4 MG SL Q4H PRN for NAUSEA/VOMITING Prescribed by: MICKY ROBLES on 06/11/22 1020 Propranolol HCl (Propranolol HCl) 20 Mg Tablet, 20 MG PO DAILY Prescribed by: MARIANNA GIBSON on 02/04/19 1420 Sulfamethoxazole/Trimethoprim (Bactrim Ds Tablet) 1 Each Tablet, 1 EACH PO BID Prescribed by: ELIA BOLANOS on 02/17/22 2256 Valacyclovir HCl (Valacyclovir) 1,000 Mg Tablet, 1,000 MG PO Q12H Prescribed by: ELIA BOLANOS on 08/12/22 1251 Review of Systems Constitutional: see HPI EENTM: see HPI Respiratory: see HPI Cardiovascular: see HPI Gastrointestinal: see HPI Genitourinary: see HPI Musculoskeletal: see HPI Skin: see HPI Psychiatric/Neurological: See HPI All Other Systems Reviewed Negative Unless Noted: Yes Past Qarvdyx-Nfbbed-Nppker Hx Patient Social History Tobacco Use?: No Tobacco type used: Cigarettes Use of E-Cig and/or Vaping dev: No Substance use?: No Alcohol Use?: Yes Alcohol Frequency: Once in a while Immunizations Up To Date Tetanus Booster (TDap): Less than 5yrs First/Initial COVID19 Vaccinat: Not currently vaccinated Second COVID19 Vaccination Behzad: Not currently vaccinated Third COVID19 Vaccination Date: Not currently vaccinated Seasonal Allergies Seasonal Allergies: No Past Medical History Surgery/Hospitalization HX: Hep C positive; substance abuse Surgeries: Yes (WISDOM TOOTH EXTRACTON) Appendectomy Respiratory: No Cardiac: Yes Hypertension Neurological: No Reproductive Disorders: No Genitourinary: No Gastrointestinal: No Musculoskeletal: Yes (hip dislocation and chronic pain) Endocrine: No HEENT: No Cancer: No Psychosocial: Yes Anxiety Integumentary: No (Cellulitis) Recent Skin Changes Blood Disorders: No Family Medical History No Pertinent Family Hx Physical Exam Vital Signs Vital Signs - First Documented 08/19/22 08/19/22 15:07 16:54 Temp 36.3 Pulse 83 Resp 18 B/P (MAP) 93/45 (61) Pulse Ox 100 O2 Delivery Room Air Capillary Refill : Height, Weight, BMI Height: 6'0" Weight: 160lbs. oz. [id number]; 20.00 BMI Method:Stated General Appearance: WD/WN, Mild Distress HEENT: PERRL/EOMI, Pharynx Normal, Pale Conjunctivae (R), Other (Multiple old and large ecchymosis of face) Neck: Full Range of Motion, Normal Inspection Cardiovascular: Regular Rate, Rhythm, No Edema, No Gallop Respiratory: Chest Non Tender, Lungs Clear, Normal Breath Sounds Gastrointestinal: Normal Bowel Sounds, No Organomegaly, No Pulsatile Mass Back: Normal Inspection Extremities: Other (Multiple old small and large ecchymosis of bilateral upper and lower extremities) Neurologic/Psychiatric: Alert, Oriented x3 Cranial Nerves: Normal Hearing, Normal Speech Motor/Sensory: No Motor Deficit, No Sensory Deficit Skin: Warm/Dry, Ecchymosis, Pallor Lymphatic: No Adenopathy Procedures/Interventions Suture Size: 4-0 Progress/Results/Core Measures Results/Orders Lab Results Laboratory Tests Test 08/19/22 14:34 Range/Units White Blood Count 7.7 4.3-11.0 10^3/uL Red Blood Count 2.53 L 4.30-5.52 10^6/uL Hemoglobin 7.6 #L 13.3-17.7 g/dL Hematocrit 23 L 40-54 % Mean Corpuscular Volume 90 80-99 fL Mean Corpuscular Hemoglobin 30 25-34 pg Mean Corpuscular Hemoglobin Concent 34 32-36 g/dL Red Cell Distribution Width 18.2 H 10.0-14.5 % Platelet Count 231 130-400 10^3/uL Mean Platelet Volume 9.5 9.0-12.2 fL Immature Granulocyte % (Auto) 2 % Neutrophils (%) (Auto) 65 42-75 % Lymphocytes (%) (Auto) 19 12-44 % Monocytes (%) (Auto) 11 0-12 % Eosinophils (%) (Auto) 2 0-10 % Basophils (%) (Auto) 1 0-10 % Neutrophils # (Auto) 5.0 1.8-7.8 10^3/uL Lymphocytes # (Auto) 1.5 1.0-4.0 10^3/uL Monocytes # (Auto) 0.8 0.0-1.0 10^3/uL Eosinophils # (Auto) 0.2 0.0-0.3 10^3/uL Basophils # (Auto) 0.0 0.0-0.1 10^3/uL Immature Granulocyte # (Auto) 0.2 H 0.0-0.1 10^3/uL Prothrombin Time 22.2 H 12.2-14.7 SEC INR Comment 1.9 H 0.8-1.4 Activated Partial Thromboplast Time 35 24-35 SEC Sodium Level 142 135-145 MMOL/L Potassium Level 3.5 L 3.6-5.0 MMOL/L Chloride Level 106 98-107 MMOL/L Carbon Dioxide Level 22 21-32 MMOL/L Anion Gap 14 5-14 MMOL/L Blood Urea Nitrogen 11 7-18 MG/DL Creatinine 0.79 0.60-1.30 MG/DL Estimat Glomerular Filtration Rate 117 BUN/Creatinine Ratio 14 Glucose Level 131 H 70-105 MG/DL Calcium Level 8.4 L 8.5-10.1 MG/DL Corrected Calcium 8.6 8.5-10.1 MG/DL Magnesium Level 1.9 1.6-2.4 MG/DL Total Bilirubin 1.1 H 0.1-1.0 MG/DL Aspartate Amino Transf (AST/SGOT) 90 H 5-34 U/L Alanine Aminotransferase (ALT/SGPT) 57 H 0-55 U/L Alkaline Phosphatase 38 L 40-136 U/L Troponin I < 0.30 <0.30 NG/ML Total Protein 6.2 L 6.4-8.2 GM/DL Albumin 3.7 3.2-4.5 GM/DL My Orders Orders - MEREDITH PUGA MD Cbc With Automated Diff (08/19/22 14:58) Magnesium (08/19/22 14:58) Chest 1 View Ap/Pa Only (08/19/22 14:58) Ekg Tracing (08/19/22 14:58) Comprehensive Metabolic Panel (08/19/22 14:58) Protime With Inr (08/19/22 14:58) Partial Thromboplastin Time (08/19/22 14:58) Monitor-Rhythm Ecg Trace Only (08/19/22 14:58) Ed Iv/Invasive Line Start (08/19/22 14:58) Troponin I Fs (08/19/22 14:58) Ct Head Wo (08/19/22 14:58) Orthostatic Vital Signs (Adult (08/19/22 14:58) Potassium Chloride (Tablet) (K Dur Table (08/19/22 16:30) Medications Given in ED Current Medications Medications Dose Ordered Sig/Emma Route Start Time Stop Time Status Last Admin Dose Admin Potassium Chloride 40 meq ONCE ONCE PO 08/19/22 16:30 08/19/22 16:31 DC 08/19/22 16:23 40 MEQ Vital Signs/I&O 08/19/22 08/19/22 08/19/22 15:07 15:34 16:54 Temp 36.3 Pulse 83 70 84 78 87 Resp 18 18 B/P (MAP) 93/45 (61) 90/47 (61) 103/58 100/57 (71) 101/55 (70) Pulse Ox 100 100 O2 Delivery Room Air Room Air Blood Pressure Mean: 70 Progress Progress Note : Progress Note Patient brought in by EMS because of a syncope and fall. Patient had discharge/left [facility] on 08/17/22 after a fall with diagnosis of anemia and 2 units of blood transfusion. Patient seen by primary care physician today and had prescription for Keflex, tizanidine, lisinopril, hydroxyzine and pantoprazole and took 4 of these 5 medication while he was in the cab and had a syncope and fall while getting out of the cab. Patient had multiple old ecchymosis. Patient had blood pressure of 80s that gradually improved to 104/64. Patient advised to hold lisinopril, hydroxyzine, and tizanidine. Patient had positive methamphetamine on his recent hospitalization but denies using drugs for 1 year. Patient advised to not use drugs and drink more liquid. Hemoglobin was 7.6 and advised to take iron tablets. Patient had potassium of 3.3 and oral potassium was given. Liver enzyme was mildly elevated without new major change compared to recent hospitalization. Patient ambulated without problem. Patient informed about test results and plan of care and needs to follow-up and all questions was addressed. Initial ECG Impression Date: Aug 19, 2022 Initial ECG Impression Time: 15:02 Initial ECG Rate: 66 Initial ECG Rhythm: Normal Sinus Initial ECG Intervals EKG interpreted by me. EKG at 1502 showed normal sinus rhythm at rate of 66, normal OH interval of 131 and QT of 400, early repolarization, no acute ST and T wave elevation. Diagnostic Imaging Diagonstic Imaging: Xray Comments Chest x-ray interpreted by radiologist and reviewed by me and showed: NAME: GRECIA RASHID Jennifer [facility] REC#: [id number] PT STATUS: REG ER : 1985 PHYSICIAN: MEREDITH PUGA MD ADMIT DATE: 08/19/22/ER FS Signed Date of Exam:08/19/22 CHEST 1 VIEW AP/PA ONLY INDICATION: Syncope COMPARISON: 08/12/2022. TECHNIQUE: Single radiograph of the chest dated 08/19/2022. FINDINGS: The cardiac silhouette is within normal limits in size. No significant pulmonary vascular congestion. The lungs are clear. No pleural effusion. No pneumothorax. Moderate degenerative changes involving the right acromioclavicular joint. No acute osseous abnormality. IMPRESSION: Stable examination without acute cardiopulmonary abnormality. Dictated by: Dictated on workstation # [id number] Dict: 08/19/22 1516 Trans: 08/19/22 1543 [facility] [id number] Interpreted by: BRIEN ZIMMERMAN MD Electronically signed by: BRIEN ZIMMERMAN MD 08/19/[address] Results/Progress Notes CT head interpreted by radiologist and reviewed by ia and showed: [facility], [place] NAME: GRECIA RASHID [facility] REC#: [id number] PT STATUS: REG ER : 1985 PHYSICIAN: MEREDITH PUGA MD ADMIT DATE: 08/19/22/ER FS Signed Date of Exam:08/19/22 CT HEAD WO PROCEDURE: CT head without contrast. TECHNIQUE: Multiple contiguous axial images were obtained through the brain without the use of intravenous contrast. Auto Exposure Controls were utilized during the CT exam to meet ALARA standards for radiation dose reduction. INDICATION: Syncope COMPARISON: 08/16/2022 FINDINGS: Minimal mineralization within the bilateral basal ganglia again noted. No intracranial hemorrhage. No intracranial mass, mass effect, midline shift, herniation, hydrocephalus, or extra-axial fluid collection. No CT evidence of an acute ischemic infarction. The orbits are unremarkable. The paranasal sinuses are clear. The calvarium and extra calvarial soft tissues are unremarkable. IMPRESSION: Stable examination without acute intracranial abnormality. Dictated by: Dictated on workstation # [id number] Dict: 08/19/22 1514 Trans: 08/19/22 1548 [facility] [id number] Interpreted by: BRIEN ZIMMERMAN MD Electronically signed by: BRIEN ZIMMERMAN MD 08/19/22 1549 Departure Impression Primary Impression: Syncope Qualified Codes: R55 - Syncope and collapse Additional Impressions: Medication side effect Anemia Qualified Codes: D64.9 - Anemia, unspecified Fatigue Qualified Codes: R53.83 - Other fatigue Ecchymosis Hypokalemia Elevated liver function tests History of methamphetamine abuse Disposition: HOME, SELF-CARE Condition: Improved Departure-Patient Inst. Decision time for Depature: 16:27 Referrals: NO,LOCAL PHYSICIAN (PCP/Family) Primary Care Physician Patient Instructions: Anemia, Possibly From Low Iron, Adult ED, Hypokalemia (DC), Preventing Falls ED, Side Effects From Medicines, Syncope (Fainting) (DC) Add. Discharge Instructions: Do not take lisinopril, hydroxyzine, Tizanidine for 5 days and then check with your primary care physician for you starting your medication Follow-up with your primary care physician in 3 to 5 days Drink plenty of liquids Return to ER as needed All discharge instructions reviewed with patient and/or family. Voiced understanding. Scripts Ferrous Sulfate (Iron) 325 Mg (65 Mg Iron) Tablet 325 MG PO TID, #100 TAB Prov: MEREDITH PUGA MD 08/19/22 MEREDITH PUGA MD Aug 19, 2022 16:25
[2022-08-19] MEDS ORDERED: KCL 20 MEQ TAB (K-DUR) PO ONE (16:30)
[2022-08-19] MEDS ORDERED: FERR-84 PO (16:34)
[2022-08-19 16:54] VITALS: BP 103/58
== END 2022-08-19 16:55 | disposition home or self-care (01) ==
LOC: EDUNIT# 13:53 → ER FS 13:54
DX: S80.12XA Contusion of left lower leg, initial encounter (principal); S80.11XA Contusion of right lower leg, initial encounter; S40.022A Contusion of left upper arm, initial encounter; S40.021A Contusion of right upper arm, initial encounter; T50.905A Adverse effect of unspecified drugs, medicaments and biological substances, initial encounter; R55 Syncope and collapse; D64.9 Anemia, unspecified; E87.6 Hypokalemia; R74.01 Elevation of levels of liver transaminase levels; R53.83 Other fatigue; I10 Essential (primary) hypertension; F17.210 Nicotine dependence, cigarettes, uncomplicated; W18.30XA Fall on same level, unspecified, initial encounter
CPT/HCPCS: 36415; 70450; 71045; 80053; 83735; 84484; 85025; 85610; 85730; 93005; 93041; G0378